=== PATIENT | male | born 1960 | race Caucasian/White ===

== ENCOUNTER 2023-07-20 14:18 | Outpatient (REF) | payer OTHER, SELFPAY ==
[2023-07-20 15:04] LABS: SARS-CoV-2 Ag NEGATIVE (NEGATIVE)
[2023-07-21 14:54] LABS: SARS-CoV-2 NAA NOT DETECTED (NOT DETECTE)
== END 2023-07-20 14:19 | disposition home or self-care (01) ==
LOC: LAB 14:18
PROVIDERS: PCP Family Medicine; Visit Provider Family Medicine
DX: R05.1 Acute cough (principal)
CPT/HCPCS: 87635; 87811

== ENCOUNTER 2023-09-21 11:59 | Outpatient (OUT) | payer BC, SELFPAY ==
--- NOTE | 2023-09-21 | XR_ITS ---
The [address] [address] Patient Name: DANAY HAN MRN: [id number] date: 1960 Sex: M Assigned Patient Location: [facility] Current Patient Location: [facility] Accession/Order Number: [id number] Exam Date: 09/21/2023 20:24 Report Date: 09/21/2023 22:14 At the request of: ARUN GARCIA Procedure: XR abdomen 1V EXAM: XR abdomen 1V CLINICAL INDICATION: history of kidney stones COMPARISON: CT abdomen/pelvis 04/05/2022 TECHNIQUE: 2 supine view(s) of the abdomen FINDINGS: Bowel: There is a nonobstructive bowel gas pattern. Peritoneum: No evidence of pneumoperitoneum noting limited evaluation on supine view. Osseous/calcific structures: Stable 1.8 cm probable right renal calculus. Probable tiny left renal calculi. XR/XR abdomen 1V IMPRESSION: Stable 1.8 cm probable right renal calculus. Probable tiny left renal calculi. Electronically authenticated by: CARLOTA LAYNE Date: 09/21/2023 22:14
--- OUTSIDE RECORDS SUMMARY | 2023-09-22 12:03 | XMS_ITS | CCD ---
Author Name Unknown Address [address] [place] [address] Organization [facility] Care Team Providers Care Com Writer Name Role Phone Radha Callaway Unavailable Gilda Cummins Primary Care Physician MARQUISE [facility]EN[facility] Amber Kay Attending Provider NO FAMILY, PHYSICIAN Primary Care Provider Unava ilable MARC, DR VO Referring Unavailable MARC, DR VO Primary Care Unavailable JOSE, DR DIAS Attending Unavailable JOSE, DR DIAS Admitting Unavailable MARC, DR VO Primary Care Unavailable SRINIVAS, DR PÉREZ Lott Consulting Unavailable NADEREKaylie, DR LUKE Sarabia Attending Unavailable NADEREKaylie, DR LUKE Sarabia Admitting Unavailable JOSE, DR DIAS Consulting Unavailable NADEREKaylie, DR LUKE Sarabia Consulting Unavailable GILBERTO, CRISTIAN Consulting Unavailable MARIIA, HUGH Consulting Unavailable MARC, DR VO Primary Care Unavailable JOSE, DR DIAS Consulting Unavailable JOSE, DR DIAS Attending Unavailable JOSE, DR DIAS Admitting Unavailable MARC, DR VO Attending Unavailable MARC, DR VO Admitting Unavailable MARC, DR VO Primary Care Unavailable MARC, DR VO Consulting Unavailable ZIEBBRIDGER, DR HUGH Lott Consulting Unavailable MARC, DR VO Primary Care Unavailable JOSE, DR DIAS Consulting Unavailable JOSE, DR DIAS Attending Unavailable JOSE, DR DIAS Admitting Unavailable ZIBEL, DR HUGH Lott Consulting Unavailable MARC, DR VO Admitting Unavailable MARC, DR VO Primary Care Unavailable CHEPEY, DR VO Consulting Unavailable MARC, DR VO Attending Unavailable ZIEBER, DR HUGH Lott Consulting Unavailable MARC, DR VO Admitting Unavailable MARC, DR VO Primary Care Unavailable MARC, DR VO Consulting Unavailable MARC, DR VO Attending Unavailable ZIEBBRIDGER, DR HUGH Lott Consulting Unavailable MARC, DR VO Primary Care Unavailable JOSE, DR DIAS Attending Unavailable MARC, DR VO Consulting Unavailable JOSE, DR DIAS Admitting Unavailable JOSE, DR DIAS Consulting Unavailable ROSALBA, DR HUGH Lott Consulting Unavailable MARC, DR VO Admitting Unavailable MARC, DR VO Consulting Unavailable MARC, DR VO Primary Care Unavailable MARC, DR VO Attending Unavailable EDWIN, DR LIYAH Walsh Consulting Unavailable MARC, DR VO Primary Care Unavailable JOSE, DR DIAS Attending Unavailable JOSE, DR DIAS Admitting Unavailable JOSE, DR DIAS Consulting Unavailable HERACLIO OLIVARES Consulting Unavailable WILMA, GILBERTO DEL ROSARIO Consulting Unavaila ble MARC, DR VO Primary Care Unavailable JOSE, DR DIAS Consulting Unavailable JOSE, DR DIAS Attending Unavailable JOSE, DR DIAS Admitting Unavailable Saravanan Torres Unavailable MD Saravanan Torres Attending Provider MD Gilda Cummins Primary Care Provider [phone] Gilda Cummins Primary Care Unavailable Brian, Saravanan S Admitting Unavailable Saravanan Torres S Attending Unavailable Gilda Cummins Primary Care Unavailable Brian, Saravanan S Admitting Unavailable Mejia Torresif S Attending Unavailable NO FAMILY, PHYSICIAN Primary Care Unavailable Amber Lentz Admitting Unavailable Amber Lentz Attending Unavailable Brian, Saravanan S Admitting Unavailable Brian, Saravanan S Attending Unavailable Gilda Cummins Primary Care Unavailable TRACEY CAM Attending Unavailable TRACEY CAM Referring Unavailable Luis Manuel LENZ Attending Unavailable Luis Manuel LENZ Attending Unavailable Allergies Allergy Classification Reported Allergen(s) Allergy Type Date of Onset Reaction(s) Facility (1 source) No Known Medication Allergies; Translations: [No Known Medication Allergies] Propensity to adverse reactions (disorder) [facility] Repository Medications Current Medications Medication Drug Class(es) Dates Sig (Normalized) Sig (Original) acyclovir 200 mg oral tablet (4 sources) Herpesvirus Nucleoside Analog DNA Polymerase Inhibitor, Herpes Simplex Virus Nucleoside Analog DNA Polymerase Inhibitor, Herpes Zoster Virus Nucleoside Analog DNA Polymerase Inhibitor Start: 03-06-2019 take 200 mg by mouth twice daily acyclovir 200 mg, Oral, BID, Refills(s) 0 Start Date: 03/06/19 Status: Ordered [id number] 200 actuat albuterol 0.09 mg/actuat metered dose inhaler (1 source) beta2-Adrenergic Agonist Start: 07-01-2021 take 2 puff(s) by inhalation four times daily as needed Albuterol Sulfate HFA 108 (90 Base) MCG/ACT 2 puffs Inhalation qid prn Jun, Active Ashwagandha 500 MG (9 sources) Ashwagandha 500 MG as directed Orally Active Ashwagandha Root Extract (2 sources) Start: 12-01-2022 take 2000 mg by mouth once daily Ashwagandha Root Extract Active 2000 MG PO Daily December 01, 2022 12:00am aspirin 81 mg oral tablet (16 sources) Platelet Aggregation Inhibitor, Nonsteroidal Anti-inflammatory Drug Start: 12-01-2022 take 81 mg by mouth once daily Aspirin Active 81 MG PO Daily December 01, 2022 12:00am Start: 05-01-2019 take 81 mg by mouth once daily aspirin 81 mg, Oral, Daily, Refills(s) 0 Start Date: 05/01/19 Status: Ordered Baby Aspirin Act cali atomoxetine (1 source) Norepinephrine Reuptake Inhibitor Strattera Active azithromycin 250 mg oral tablet (1 source) Macrolide Antimicrobial Start: 021 Zithromax 250 MG 2 tablet on the first day, then 1 tablet daily for 4 days Orally Once a day for 5 day(s) Jun, Active Baclofen (1 source) gamma-Aminobutyric Acid-ergic Agonist Baclofen Active cholecalciferol 0.125 mg oral capsule (2 sources) Vitamin D Start: take 5000 [IU] by mouth once daily Cholecalciferol (Vitamin D3) Active 5000 UNIT PO Daily December 01, 2022 12:00am DHEA 50 (1 source) DHEA 50 Active docusate sodium 50 mg oral capsule (3 sources) Start: 023 take 1 capsule by mouth once daily Docusate Sodium (Colace) 50 mg Capsule Active 50 MG PO Daily January 12, 2023 12:00am Start: 12-01-2022 End: 01-12-2023 take 1 capsule by mouth every other day Docusate Sodium (Colace) 100 mg Capsule Discontinued 100 MG PO As Directed December 01, 2022 12:00am January 12, 2023 9:27am every other day guanFACINE 2 mg oral tablet (1 source) Central alpha-2 Adrenergic Agonist Start: 01-12-2023 take 2 mg by mouth once daily Guanfacine Active 2 MG PO Daily January 12, 2023 12:00am levothyroxine sodium 0.1 mg oral tablet (4 sources) l-Thyroxine Start: 01-12-2023 take 100 ug by mouth once daily Levothyroxine Active 100 MCG PO Daily January 12, 2023 12:00am Start: 04-19-2022 levothyroxine Daily, Refills(s) 0 Start Date: 04/19/22 Status: Ordered Lisinopril (1 source) Angiotensin Converting Enzyme Inhibitor Lisinopril Active losartan potassium 50 mg oral tablet (14 sources) Angiotensin 2 Receptor Renate Start: 04-19-20 take 50 mg by mouth once daily Losartan Active 50 MG PO Daily December 01, 2022 12:00am methylphenidate hydrochloride 10 mg oral tablet (14 sources) Central Nervous System Stimulant Start: 12-02-19 Methylphenidate Hcl Active 20 MG PO As Directed December 01, 2022 12:00am Start: 12-01-2022 Methylphenidat e Hcl Active 10 MG PO As Directed December 01, 2022 12:00am Start: 04-19-2022 methylphenidat e Refills(s) 0 Start Date: 04/19/22 Status: Ordered take 2 tablets by mo [facility] once daily Methylphenidate HCl 10 MG TAKE 2 TABLETS BY MOUTH EVERY DAY Oral for 30 Days Active Multivitamin preparation (15 sources) Start: 12-01-2022 take 1 tablet by mouth once daily Multivitamin Active 1 TAB PO Daily December 01, 2022 12:00am Start: 04-19-2022 multivitamin D aily, Refill(s) 0 Start Date: 04/19/22 Status: Ordered Multivitamin Not -Taking Multivitamin Act cali oxaprozin 600 mg oral tablet (15 sources) Nonsteroidal Anti-inflammatory Drug Start: 01-12-2023 take 1200 mg by mouth once daily Oxaprozin Active 1200 MG PO Daily January 12, 2023 12:00am Start: 04-19-2022 End: 12-22-2022 Oxaprozin Discontinued 600 M G PO As Directed December 01, 2022 12:00am December 22, 2022 9:38am predniSONE 20 mg oral tablet (1 source) Start: 07-01-2021 take 1 tablet by mouth every twelve hours predniSONE 20 MG 1 tablet Orally bid for 5 day(s) Jun, Active tamsulosin hydrochloride 0.4 mg oral capsule (2 sources) alpha-Adrenergic Renate Start: 03-06-2019 take 0.4 mg by mouth once daily Flomax 0.4 mg, Oral, Daily, Refills(s) 0 Start Date: 03/06/19 Status: Ordered tiZANidine 4 mg oral tablet (1 source) Central alpha-2 Adrenergic Agonist Start: 01-12-2023 take 8 mg by mouth once daily at bedtime Tizanidine Active 8 MG PO Daily at bedtime January 12, 2023 12:00am traZODone hydrochloride 50 mg oral tablet (5 sources) Serotonin Reuptake Inhibitor Start: 01-12-2023 take 100 mg by mouth once daily at bedtime Trazodone Active 100 MG PO Daily at bedtime January 12, 2023 12:00am Start: 04-19-2022 traZODONE 100 mg Tab mg tab(s), Oral, Refills(s) 0 Start Date: 04/19/22 Status: Ordered traZODone HCl Ac tive Vitamin D3 (13 sources) Start: 04-19-2022 Vitamin D3 Ref ills(s) 0 Start Date: 04/19/22 Status: Ordered Vitamin D3 Activ e Completed/Discontinued Medications Medication Drug Class(es) Dates Sig (Normalized) Sig (Original) Augmentin Tablets 875 MG (9 sources) Augmentin Tablet s 875 MG Take as directed Not-Taking Augmentin Tablet s 875 MG Take as directed Active triamcinolone acetonide 40 mg/ml injectable suspension (9 sources) Corticosteroid Start: 10-18-2022 Kenalog-40 Oct, 40 mg Problems Active Problems Problem Classification Problem Date Documented Date Episodic/Chronic Calculus of urinary tract (11 sources) Kidney stone; Translations: [Calculus of kidney] Onset: 04-19-2022 03-06-2019 Episodic Chronic obstructive pulmonary disease and bronchiectasis (1 source) Chronic obstructive pulmonary disease, unspecified; Translations: [COPD UNSPECIFIED] Onset: 03-24-2022 Chronic Diseases of white blood cells (1 source) Elevated white blood cell count, unspecified; Translations: [ELEVATED WHITE BLOOD CELL COUNT UNS] Onset: 03-24-2022 Chronic Essential hypertension (1 source) Essential (primary) hypertension; Translations: [ESSENTIAL PRIMARY HYPERTENSION] Onset: 03-24-2022 Chronic Genitourinary symptoms and ill-defined conditions (4 sources) Presence of urogenital implants; Translations: [PRESENCE OF UROGENITAL IMPLANTS] Onset: 03-29-2022 Chronic Genitourinary symptoms and ill-defined conditions (9 sources) Microscopic hematuria; Translations: [Asymptomatic microscopic hematuria] Onset: 04-05-2022 Episodic Headache; including migraine (4 sources) Migraine 03-06-2019 Chronic Hyperplasia of prostate (11 sources) Benign prostatic hypertrophy with outflow obstruction; Translations: [Benign prostatic hyperplasia with lower urinary tract symptoms] Onset: 03-30-2022 Chronic Inflammatory conditions of male genital organs (1 source) Chronic prostatitis; Translations: [CHRONIC PROSTATITIS] Onset: 05-13-2022 Chronic Osteoarthritis (5 sources) Arthritis; Translations: [Unspecified osteoarthritis, unspecified site] Onset: 05-13-2022 03-06-2019 Chronic Other diseases of bladder and urethra (1 source) Bladder disorder, unspecified; Translations: [BLADDER DISORDER UNSPECIFIED] Onset: 05-13-2022 Chronic Other diseases of bladder and urethra (1 source) Other specified disorders of bladder; Translations: [OTHER SPECIFIED DISORDERS BLADDER] Onset: 03-30-2022 Chronic Other diseases of bladder and urethra (3 sources) Male urethral stricture; Translations: [Unspecified urethral stricture, male, unspecified site] Onset: 04-19-2022 Episodic Other diseases of bladder and urethra (3 sources) Urethral stricture 04-19-2022 Episodic Other diseases of bladder and urethra (1 source) Unspecified urethral stricture, male, unspecified site; Translations: [UNSP URETHRAL STRCT MALE UNSP SITE] Onset: 09-30-2022 Episodic Other diseases of kidney and ureters (1 source) Urinary tract obstruction; Translations: [Other obstructive and reflux uropathy] Onset: 09-13-2022 Episodic Other nervous system disorders (9 sources) Chronic pain; Translations: [Other chronic pain] Chronic Other nervous system disorders (5 sources) Other chronic pain Chronic Other nervous system disorders (1 source) Other chronic pain; Translations: [Other chronic pain] Onset: 12-01-2022 Chronic Other nutritional; endocrine; and metabolic disorders (1 source) Obesity, unspecified; Translations: [OBESITY UNSPECIFIED] Onset: 03-24-2022 Chronic Other nutritional; endocrine; and metabolic disorders (1 source) Body mass index (BMI) 37.0-37.9, adult; Translations: [BODY MASS INDEX BMI 37.0-37.9 ADULT] Onset: 03-24-2022 Chronic Residual codes; unclassified (4 sources) Sleep apnea 03-06-2019 Chronic Residual codes; unclassified (1 source) Sleep apnea, unspecified; Translations: [SLEEP APNEA UNSPECIFIED] Onset: 05-13-2022 Chronic Spondylosis; intervertebral disc disorders; other back problems (20 sources) Spondylosis without myelopathy or radiculopathy, cervical region; Translations: [Other intervertebral disc degeneration, lumbar region] Onset: 11-16-2021 Chronic Spondylosis; intervertebral disc disorders; other back problems (20 sources) Radiculopathy, cervical region; Translations: [Dorsalgia, unspecified] Onset: 11-18-2021 Episodic Unclassified (3 sources) Asymptomatic microscopic hematuria 04-19-2022 Unclassified (1 source) PERSONAL HISTORY OF COVID-19; Translations: [PERSONAL HISTORY OF COVID-19] Onset: 05-13-2022 Unclassified (1 source) CONTACT W/AND (SUSP) EXPOS COVID-19; Translations: [CONTACT W/AND (SUSP) EXPOS COVID-19] Onset: 05-03-2022 Unclassified (1 source) Pain in left shoulder; Translations: [Pain in left shoulder] Onset: 04-14-2022 Past or Other Problems Problem Classification Problem Date Documented Date Episodic/Chronic Abdominal pain (3 sources) Unspecified abdominal pain; Translations: [UNSPECIFIED ABDOMINAL PAIN] Onset: 03-21-2022 Episodic Acute and unspecified renal failure (1 source) Acute kidney failure, unspecified; Translations: [ACUTE KIDNEY FAILURE UNSPECIFIED] Onset: 03-24-2022 Episodic Chronic obstructive pulmonary disease and bronchiectasis (1 source) Bronchitis, not specified as acute or chronic; Translations: [Bronchitis J40] Onset: 07-01-2021 Resolved: 07-01-2021 Episodic Immunizations and screening for infectious disease (1 source) Contact with and (suspected) exposure to other viral communicable diseases; Translations: [Contact with and (suspected) exposure to other viral communicable diseases Z20.828] Onset: 07-01-2021 Resolved: 07-01-2021 Episodic Other aftercare (1 source) 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; Translations: [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 CURRENT USE OF ASPIRIN] Onset: 05-13-2022 Episodic Other aftercare (1 source) Other snf (current) drug therapy; Translations: [OTH 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 CURRENT DRUG THERAPY] Onset: 05-13-2022 Episodic Other aftercare (1 source) manager long term care (current) use of anticoagulants; Translations: [ALF CURRNT USE ANTICOAGULANTS] Onset: 05-03-2022 Episodic Other diseases of kidney and ureters (1 source) Hydronephrosis with renal and ureteral calculous obstruction; Translations: [HYDRONPHROS RENL AND URETRL CALCUL OBST] Onset: 03-24-2022 Episodic Other upper respiratory infections (1 source) Acute upper respiratory infection, unspecified; Translations: [Viral upper respiratory illness J06.9] Onset: 07-01-2021 Resolved: 07-01-2021 Episodic Screening and history of mental health and substance abuse codes (1 source) Personal history of nicotine dependence; Translations: [PERSONAL HISTORY OF NICOTINE DEPEND] Onset: 03-24-2022 Episodic Results Test Name Value Interpretation Reference Range Facility Provider Letteron 09-09-2023 Provider Letter (Inserted Image. Priscilla ble to display) September 09, 2023 PAUL VALENTINO [address] [place] [id number] : 1960 Dear Paul , We have been trying to reach you with no success. You have an appointment with Dr. Luis Manuel Lenz on 09/16/23 which will need to be rescheduled since he will be out of the office that day. Please contact the office at the number listed below to get this appointment rescheduled at your earliest convenience. Thank you for your prompt attention to this matter. Sincerely, [facility] [address], [place] [address] [facility] Pre-Certification Formon Pre-Certification Form [id number] :127 Normal [facility] RAD - MISCon 10-04-2022 RAD - MIS [id number]: 127 Normal [facility] XR KUB 1 VIEWon 09-29-2022 XR KUB 1 VIEW EXAMINATION: XR KUB 1 VIEW HISTORY: Lower urinary tract symptoms due to benign prostatic hypertrophy ; microscopic hematuria, history of kidney stones COMPARISON: CT abdomen and pelvis 04/05/2022 FINDINGS: KIDNEY/URETER - RIGHT: Collection of numerous small calcification within a cyst within superior pole of right kidney. Small adjacent calcification. KIDNEY/URETER - LEFT: Small calcification within lower pole of left kidney. PELVIS: No visible ureteral stones. BOWEL: No abnormal dilation or deviation. BONES: No acute abnormality. OTHER: Negative. No abnormal gaseous collections. IMPRESSION: 1. Bilateral nephrolithiasis; grossly stable compared to prior CT study. Electronically authenticated by: HUGH NAVARRETE Date: 2022-09-29 08:41 Normal [facility] Screenson 09-14-2022 Screens [id number]: 127 Normal [facility] Ambulatory Visit Summaryon 0 09-13-2022 Ambulatory Visit Summary PAUL VALENTINO :1960 Visit Date:09/13/2022 Ambulatory Visit Instructions Your Diagnosis BPH with obstruction/lower urinary tract symptoms Asymptomatic microscopic hematuria History of kidney stones Urethral stricture Other obstructive and reflux uropathy Tests Performed Urnls Dip Stick Auto w/o Microscopy POC [id number] XR Abdomen 1 View -- Results Pending -- Please visit your patient portal for your results or contact your primary care physician. Your Care Team Attending Physician - Luis Manuel LENZ MD Primary Care Physician - Gilda Cummins MD This Is Your Medications List Contact prescribing physician if questions or concerns acyclovir aspirin cholecalciferol (Vitamin D3) levothyroxine losartan (losartan 50 mg Tab) methylphenidate multivitamin oxaprozin (oxaprozin 600 mg Tab) trazodone (traZODONE 100 mg Tab) Procedures Performed Transurethral resection of prostate (05/06/2022), Arthroplasty of knee (2022), Clavicle, Lithotripsy. Discharge Vitals Heart Rate (Peripheral) 78 Respiratory Rate 16 Blood Pressure 137/89 Height 178 cm Height 70 in Weight 115.3 kg Weight 253.66 lb BMI 36.39 What to do next Scheduled Follow-Up Appointments Tuesday 9:45 AM EST With: Luis Manuel LENZ MD Where: [facility] Normal [facility] Patient Educationon 09-13-19 23 Patient Education Urology Benign Prostatic Hyperplasia Benign prostatic hyperplasia (BPH) is an enlarged prostate gland that is caused by the normal aging process and not by cancer. The prostate is a walnut-sized gland that is involved in the production of semen. It is located in front of the rectum and below the bladder. The bladder stores urine and the urethra is the tube that carries the urine out of the body. The prostate may get bigger as a man gets older. An enlarged prostate can press on the urethra. This can make it harder to pass urine. The build-up of urine in the bladder can cause infection. Back pressure and infection may progress to bladder damage and kidney (renal) failure. What are the causes? This condition is part of a normal aging process. However, not all men develop problems from this condition. If the prostate enlarges away from the urethra, urine flow will not be blocked. If it enlarges toward the urethra and compresses it, there will be problems passing urine. What increases the risk? This condition is more likely to develop in men over the age of 50 years. What are the signs or symptoms? Symptoms of this condition include: ? Getting up often during the night to urinate. ? Needing to urinate frequently during the day. ? Difficulty starting urine flow. ? Decrease in size and strength of your urine stream. ? Leaking (dribbling) after urinating. ? Inability to pass urine. This needs immediate treatment. ? Inability to completely empty your bladder. ? Pain when you pass urine. This is more common if there is also an infection. ? Urinary tract infection (UTI). How is this diagnosed? This condition is diagnosed based on your medical history, a physical exam, and your symptoms. Tests will also be done, such as: ? A post-void bladder scan. This measures any amount of urine that may remain in your bladder after you finish urinating. ? A digital rectal exam. In a rectal exam, your health care provider checks your prostate by putting a lubricated, gloved finger into your rectum to feel the back of your prostate gland. This exam detects the size of your gland and any abnormal lumps or growths. ? An exam of your urine (urinalysis). ? A prostate specific antigen (PSA) screening. This is a blood test used to screen for prostate cancer. ? An ultrasound. This test uses sound waves to electronically produce a picture of your prostate gland. Your health care provider may refer you to a specialist in kidney and prostate diseases (urologist). How is this treated? Once symptoms begin, your health care provider will monitor your condition (active surveillance or watchful waiting). Treatment for this condition will depend on the severity of your condition. Treatment may include: ? Observation and yearly exams. This may be the only treatment needed if your condition and symptoms are mild. ? Medicines to relieve your symptoms, including: ? Medicines to shrink the prostate. ? Medicines to relax the muscle of the prostate. ? Surgery in severe cases. Surgery may include: ? Prostatectomy. In this procedure, the prostate tissue is removed completely through an open incision or with a laparoscope or robotics. ? Transurethral resection of the prostate (TURP). In this procedure, a tool is inserted through the opening at the tip of the penis (urethra). It is used to cut away tissue of the inner core of the prostate. The pieces are removed through the same opening of the penis. This removes the blockage. ? Transurethral incision (TUIP). In this procedure, small cuts are made in the prostate. This lessens the prostate's pressure on the urethra. ? Transurethral microwave thermotherapy (TUMT). This procedure uses microwaves to create heat. The heat destroys and removes a small amount of prostate tissue. ? Transurethral needle ablation (TUNA). This procedure uses radio frequencies to destroy and remove a small amount of prostate tissue. ? Interstitial laser coagulation (ILC). This procedure uses a laser to destroy and remove a small amount of prostate tissue. ? Transurethral electrovaporization (TUVP). This procedure uses electrodes to destroy and remove a small amount of prostate tissue. ? Prostatic urethral lift. This procedure inserts an implant to push the lobes of the prostate away from the urethra. Follow these instructions at home: ? Take [id number] and prescription medicines only as told by your health care provider. ? Monitor your symptoms for any changes. Contact your health care provider with any changes. ? Avoid drinking large amounts of liquid before going to bed or out in public. ? Avoid or reduce how much caffeine or alcohol you drink. ? Give yourself time when you urinate. ? Keep all follow-up visits as told by your health care provider. This is important. Contact a health care provider if: ? You have unexplained back pain. ? Your symptoms do not get better with treatment. ? You d (more content not included)... Normal [facility] Urology Office/Clinic Noteon 09-13-2022 Urology Office/Clinic Note Chief Complaint 3 month f/u HPI Staff Pt is here for 3 month f/u. Previous dx of BPH with urinary obstruction (TURP 05/06/22), asymptomatic microhematuria, kidney stone and urethral stricture. IPSS score is 3. Dysuria: no Incomplete bladder emptying: not at all per IPSS Hematuria: pt states that he was seeing a small clot after intercourse but has not seen anything for about 3 weeks now Frequency: less than 1 in 5x Urgency: no Nocturia: 1x Stream: good stream no straining Leaking: no Post void dripping: no Wearing pads/ Depends: no Urge incontinence: no Stress incontinence: no Incontinence without Sensory Awareness: no Abdominal pain: no Flank pain: no Sexual complaints: no History of Present Illness Tests reviewed: reviewed UA I have reviewed the previous health record information and history for this patient from Dr. Lenz. I have reviewed and verified the staff HPI to be accurate for this encounter. There have been no associated fever, chills, flank pain, or blood in the urine. Denies any urinary infections since last encounter. Review of Systems PHQ Score Initial Depression Screen Score: 0 ROS - Provider Constitutional: denies weight loss, denies hot flashes. Eyes: denies eye problems. Gastrointestinal: denies nausea, denies vomiting. Cardiovascular: denies chest pain or angina. Integumentary: no dryness Musculoskeletal: denies musculoskeletal symptoms. ENMT: denies otolaryngeal symptoms. Respiratory: no shortness of breath. Heme/Lymph: denies easy bleeding tendency, denies easy bruising tendency. Psychiatric: no confusion, no anxiety. Genitourinary: denies dysuria, denies hematuria, denies discharge, denies urinary frequency, denies urinary hesitancy, denies nocturia, denies incontinence, denies genital sores, denies decreased libido, and denies erectile dysfunction. Physical Exam Vitals & Measurements HR: 78(Peripheral) RR: 16 BP: 137/89 HT: 70 in HT: 178 cm WT: 115.3 kg WT: 253.66 lb BMI: 36.39 General Appearance: alert, no distress, well nourished, well developed male. Genitourinary: normal scrotum, normal testes, normal urethra, normal epididymis, normal vas deferens/spermatic cord. Flank Pain: none. Bladder: nonpalpable. Assessment/Plan 1. BPH with obstruction/lower urinary tract symptoms (N40.1: Benign prostatic hyperplasia with lower urinary tract symptoms) S/p Cysto 03/21/22 Urodynamics 03/30/22 showed pt was obstructed S/p TURP 05/06/22. Pt doing very well with urination, stream has improved drastically. Pt feels empty after he voids. Pt states he gets up once a night, if at all. Pt not currently taking a BPH medications at this time. Dr. Cummins checks PSA, most recent 0.63 done 06/07/21, previous 0.56 done 08/21/19. 2. Asymptomatic microscopic hematuria (R31.21: Asymptomatic microscopic hematuria) Chronic. UA today shows moderate. Pt states he has seen a small amount of blood after intercourse. Not of concern due to TURP being only 4 months ago. 3. History of kidney stones (Z87.442: Personal history of urinary calculi) Will schedule a KUB for now and will follow up in 1 year with a kub. 4. Urethral stricture (N35.919: Unspecified urethral stricture, male, unspecified site) UD done 03/21/22. No issues at this time. Other obstructive and reflux uropathy (N13.8: Other obstructive and reflux uropathy) Follow-up With When Contact Information JOSE WONG, FÉLIX Allen In 1 year [facility] [address] , [place] [address]- [phone] Additional Instructions: w/ KUB Patient Education Benign Prostatic Hyperplasia I, Mandy Pandey, personally scribed for Dr. Lenz on 09/13/2022 11:57:47. . Documentation recorded by the scribe, Mandy Pandey, accurately reflects the services(s) I performed and decisions made by me. Authenticated by Dr. Lenz on 09/13/2022 11:59:17. Problem List/Past Medical History Ongoing Apnea, sleep Arthritis Asymptomatic microscopic hematuria BPH with obstruction/lower urinary tract symptoms Headache, migraine History of kidney stones Kidney stone Urethral stricture Historical No qualifying data Procedure/Surgical History Transurethral resection of prostate (05/06/2022), Arthroplasty of knee (2021), Clavicle, Lithotripsy. Medications acyclovir, 200 mg, Oral, BID aspirin, 81 mg, Oral, Daily levothyroxine, Daily losartan 50 mg Tab, Oral, Daily methylphenidate multivitamin, Daily oxaprozin 600 mg Tab, Oral, Daily traZODONE 100 mg Tab, Oral Vitamin D3 Allergies No Known Medication Allergies Social History Tobacco - No Risk, 05/01/2019 Former smoker, quit more than 30 days ago Tobacco Use:., 09/13/2022 Lab Results Ambulatory Point of Care Results Bilirubin Urine Dipstick: Negative (09/13/22 10:59:00) Blood Urine Dipstick: 2+ Moderate (09/13/22 10:59:00) Glucose Urine Dipstick: Negative (09/13/22 10:59:00) Ketones Urine D (more content not included)... Normal [facility] Comment on above: Result Comment: Elec tronically Signed By: Luis Manuel LENZ MD\.br\Date and Time Signed: 09/13/22 11:59 EST\.br\Electronically Co-Signed By: Mandy Pandey\.br\Date and Time Co-Signed: 09/13/22 11:57 EST US Venous, Unilat, Lower Ext Righton 08-31-2022 US Venous, Unilat, Lower Ext Right FINDINGS: The deep venous system of the right lower extremity exhibits full compressibility and normal flow augmentation. These specifically include the common femoral, superficial femoral, popliteal, and visualized anterior tibialis, posterior tibialis, and peroneal veins. No evidence of deep venous thrombosis is present. Greater saphenous vein is patent. 1.5 x 2.0 cm popliteal cyst. IMPRESSION: 1. No deep venous thrombosis 2. Popliteal cyst Report reported and signed by Cali Oh on 08/31/2022 1107 Normal [facility] CREATININEon 06-29-2022 Creatinine [Mass/Vol] 1.11 mg/dL Normal 0.70-1.30 [facility] Comment on above: Performed By: #### C BC #### [facility] [address] [address] [address] Sim Bryan EGFR-AF BELIZEAN >60 Normal >=60 [facility] Comment on above: Performed By: #### C BC #### [facility] [address] [address] [address] Sim Bryan EGFR-NON AF BELIZEAN >60 Normal >=60 [facility] Comment on above: Performed By: #### C BC #### [facility] [address] [address] [address] Sim Bryan MRI BRAIN WO W CONon 022 MRI BRAIN WO W CON EXAMINATION: MRI BRA IN WO W CON HISTORY: Cervical radiculopathy ; recurrent headaches COMPARISON: No relevant comparison available. TECHNIQUE: A variety of imaging planes and parameters were utilized for visualization of suspected pathology. Images were performed without and with ml Dotarem contrast. FINDINGS: CEREBRUM: No edema, hemorrhage, mass, acute infarction, or inappropriate atrophy. CEREBELLUM: No edema, hemorrhage, mass, acute infarction, or inappropriate atrophy. BRAINSTEM: No edema, hemorrhage, mass, acute infarction, or inappropriate atrophy. CSF SPACES: Ventricles, cisterns, and sulci are appropriate for age. No hydrocephalus, subarachnoid hemorrhage, or mass. SKULL: No mass or other significant visible lesion. SINUSES: Limited views demonstrate no significant mucosal thickening or fluid. ORBITS: Limited views are unremarkable. OTHER: No abnormal meningeal or parenchymal enhancement. IMPRESSION: Normal examination. Electronically authenticated by: HUGH NAVARRETE Date: 2022-06-29 21:03 Normal [facility] MRI CSPINE WO CONon 06-29-20 22 MRI CSPINE WO CON EXAMINATION: MRI CSP INE WO CON HISTORY: Cervical radiculopathy COMPARISON: MRI C-spine 03/29/2019 TECHNIQUE: A variety of imaging planes and parameters were utilized for visualization of suspected pathology. FINDINGS: CRANIOCERVICAL AREA: Normal foramen magnum with no Chiari malformation. PARASPINAL AREA: Normal with no visible mass. BONES: No fracture, pars defect, or osseous lesion. CORD: Normal caliber, contour, and signal intensity. CERVICAL DISC LEVELS: C2-C3: Left paracentral mild-moderate disc protrusion causing mild left foramen narrowing. C3-C4: Moderate-marked right foramen and moderate left foramen narrowing secondary to uncovertebral joint spurring and degenerative facet arthropathy, right greater than left. No significant central canal narrowing or disc bulging. C4-C5: Moderate left foramen narrowing secondary to uncovertebral joint spurring and degenerative facet arthropathy. No significant central canal or right foramen narrowing. No significant disc bulging. C5-C6: Moderate-marked foramen narrowing bilaterally secondary to uncovertebral joint spurring and degenerative facet arthropathy. Mild diffuse disc bulging without central canal narrowing. C6-C7: Mild left foramen narrowing secondary to uncovertebral joint spurring and mild degenerative facet arthropathy. C7-T1:. No significant disc/facet abnormality, spinal stenosis, or foraminal stenosis. IMPRESSION: 1. Multilevel foraminal stenosis secondary to uncovertebral joint spurring and degenerative facet arthropathy. No significant central canal narrowing. 2. C2-C3 left paracentral moderate disc protrusion causing mild left foramen narrowing. Electronically authenticated by: HUGH NAVARRETE Date: 2022-06-29 21:11 Normal [facility] XR FOREIGN BODY EYEon 2021 XR FOREIGN BODY EYE EXAMINATION: XR FORE IGN BODY EYE HISTORY: Foreign body in eye COMPARISON: No relevant comparison available. FINDINGS: ORBITS: Negative for a metallic foreign body. OTHER: Negative. IMPRESSION: 1. No metallic foreign body within the orbits. Electronically authenticated by: HUGH NAVARRETE Date: 2022-06-29 09:55 Normal [facility] XR CSPINE MIN 4 VIEWSon 06-05 XR CSPINE MIN 4 VIEWS EXAMINATION: XR CSPINE MIN 4 VIEWS HISTORY: Cervical radiculopathy ; chronic COMPARISON: XR C-spine 08/11/2018 FINDINGS: BONES: Multilevel mild-moderate degenerative facet arthropathy. No fracture, spondylolisthesis, bone lesion. DISC SPACES: Small posterior projecting degenerative endplate osteophytes without significant joint space narrowing. Mild bone encroachment on the neural foramen and C5-C6 and C6-C7. PARASPINOUS: Negative. No paraspinous abnormality is seen. OTHER: Negative. IMPRESSION: 1. Multilevel mild-moderate degenerative changes; stable to slightly progressed. Electronically authenticated by: HUGH NAVARRETE Date: 2022-06-23 07:11 Normal [facility] CBC AUTO DIFFon 04-29-2022 BASO # 0.0 103/ul Normal 0.0-0.1 [facility] Comment on above: Performed By: #### C BC #### [facility] [address] [address] [address] Sim Bryan Basophils/100 WBC (Bld) 0.4 % Normal 0.2-2.0 [facility] Comment on above: Performed By: #### C BC #### [facility] [address] [place] [address] Dr. Sim Bryan EO # 0.1 103/ul Normal 0.0-0.7 [facility] Comment on above: Performed By: #### C BC #### [facility] [address] [place] [address] Dr. Sim Bryan Eosinophils/100 WBC (Bld) 1.4 % Normal 0.9-7.0 [facility] Comment on above: Performed By: #### C BC #### [facility] [address] [place] [address] Dr. Sim Bryan Erythrocyte distribution width (RBC) [Ratio] 12.3 % Normal 11.0-15.0 [facility] Comment on above: Performed By: #### C BC #### [facility] [address] [place] [address] Dr. Sim Bryan Hematocrit (Bld) [Volume fraction] 45.8 % Normal 42.0-54.0 [facility] Comment on above: Performed By: #### C BC #### [facility] [address] [place] [address] Dr. Sim Bryan Hemoglobin (Bld) [Mass/Vol] 15.6 g/dL Normal 14.0-18.0 [facility] Comment on above: Performed By: #### C BC #### [facility] [address] [address] [address] Sim Bryan IG # 0.10 10e3/ul Critically high 0.00-0.03 [facility] Comment on above: Performed By: #### C BC #### [facility] [address] [address] [address] iSm Bryan IG % 1.2 % Critically high 0.0-0.5 [facility] Comment on above: Performed By: #### C BC #### [facility] [address] [address] [address] Sim Bryan LYMPH # 2.0 103/ul Normal 1.2-3.8 [facility] Comment on above: Performed By: #### C BC #### [facility] [address] [place] [address] Dr. Sim Bryan Lymphocytes/100 WBC (Bld) 23.7 % Normal 20.5-60.0 [facility] Comment on above: Performed By: #### C BC #### [facility] [address] [place] [address] Dr. Sim Bryan MANUAL DIFF REQ NO Normal [facility] Comment on above: Performed By: #### C BC #### [facility] [address] [place] [address] Dr. Sim Bryan MCH (RBC) [Entitic mass] 31.1 pg Normal 25.9-34.0 [facility] Comment on above: Performed By: #### C BC #### [facility] [address] [place] [address] Dr. Sim Bryan MCHC (RBC) [Mass/Vol] 34.1 g/dL Normal 29.9-35.2 [facility] Comment on above: Performed By: #### C BC #### [facility] [address] [place] [address] Dr. Sim Bryan MCV (RBC) [Entitic vol] 91.2 fL Normal 80.0-94.0 [facility] Comment on above: Performed By: #### C BC #### [facility] [address] [place] [address] Dr. Sim Bryan MONO # 0.8 103/ul Normal 0.3-0.8 [facility] Comment on above: Performed By: #### C BC #### [facility] [address] [place] [address] Dr. Sim Bryan Monocytes/100 WBC (Bld) 9.7 % Normal 1.7-12.0 [facility] Comment on above: Performed By: #### C BC #### [facility] [address] [place] [address] Dr. Sim Bryan NEUT # 5.4 103/ul Normal 1.4-6.5 [facility] Comment on above: Performed By: #### C BC #### [facility] [address] [place] [address] Dr. Sim Bryan Neutrophils/100 WBC (Bld) 63.6 % Normal 43.0-75.0 [facility] Comment on above: Performed By: #### C BC #### [facility] [address] [place] [address] Dr. iSm Bryan Platelet mean volume (Bld) [Entitic vol] 9.0 fL Critically low 9.5-13.5 [facility] Comment on above: Performed By: #### C BC #### [facility] [address] [place] [address] Dr. Sim Bryan PLT 215 103/ul Normal 150-450 [facility] Comment on above: Performed By: #### C BC #### [facility] [address] [place] [address] Dr. Sim Bryan RBC 5.02 106/ul Normal 4.70-6.10 [facility] Comment on above: Performed By: #### C BC #### [facility] [address] [place] [address] Dr. Sim Bryan WBC 8.6 103/ul Normal 4.0-11.0 [facility] Comment on above: Performed By: #### C BC #### [facility] [address] [place] [address] Dr. Sim Bryan Covid-19 PCR (CVDTBH)on 04-06 SARS-CoV-2 (COVID-19) RNA ANNA+probe Ql (Unsp spec) Not detected Normal NOT DETECTED [facility] Comment on above: Result Comment: This test is not yet approved or cleared by the [place] FDA. When there are no FDA-approved or cleared tests available, and other criteria are met, FDA can make tests available under an emergency access mechanism called an Emergency Use Authorization (EUA). The EUA for this test is supported by the [employer] of Health and Human Service's (HHS's) declaration that circumstances exist to justify the emergency use of in vitro diagnostics for the detection and/or diagnosis of the virus that causes COVID-19. This EUA will remain in effect (meaning this test can be used) for the duration of the COVID-19 declaration justifying emergency of IVDs, unless it is terminated or revoked by FDA (after which the test may no longer be used). When diagnostic testing is negative, the possibility of a false negative should be considered in the context of a patient's recent exposures and the presence of clinical signs and symptoms consistent with SARS-CoV-2. Performed By: #### C VDTBH #### [facility] [address] [place] [address] Dr. Sim Bryan PROF CHEM 8 (BAS METB)on Anion gap [Moles/Vol] 13.1 mmol/L Normal [facility] Comment on above: Performed By: #### GERA CRAWFORD #### [facility] [address] [place] [address] Dr. Sim Bryan Calcium [Mass/Vol] 8.8 mg/dL Normal 8.5-10.1 [facility] Comment on above: Performed By: #### GERA CRAWFORD #### [facility] [address] [place] [address] Dr. Sim Bryan Chloride [Moles/Vol] 103 mmol/L Normal 98-107 [facility] Comment on above: Performed By: #### GERA CRAWFORD #### [facility] [address] [place] [address] Dr. Sim Bryan CO2 [Moles/Vol] 26.7 mmol/L Normal 21.0-32.0 [facility] Comment on above: Performed By: #### GERA CRAWFORD #### [facility] [address] [address] [address] Sim Bryan Creatinine [Mass/Vol] 1.08 mg/dL Normal 0.70-1.30 [facility] Comment on above: Performed By: #### GERA CRAWFORD #### [facility] [address] [address] [address] Sim Bryan EGFR-AF BELIZEAN >60 Normal >=60 [facility] Comment on above: Performed By: #### GERA CRAWFORD #### [facility] [address] [place] [address] Dr. Sim Bryan EGFR-NON AF BELIZEAN >60 Normal >=60 [facility] Comment on above: Performed By: #### GERA CRAWFORD #### [facility] [address] [address] [address] Sim Bryan Glucose [Mass/Vol] 94 mg/dL Normal 74-106 [facility] Comment on above: Performed By: #### GERA CRAWFORD #### [facility] [address] [place] [address] Dr. Sim Bryan Potassium [Moles/Vol] 3.8 mmol/L Normal 3.5-5.1 [facility] Comment on above: Performed By: #### GERA CRAWFORD #### [facility] [address] [place] [address] Dr. Sim Bryan Sodium [Moles/Vol] 139 mmol/L Normal 136-145 [facility] Comment on above: Performed By: #### GERA CRAWFORD #### [facility] [address] [address] [address] Sim Bryan Urea nitrogen [Mass/Vol] 14.0 mg/dL Normal 7.0-18.0 [facility] Comment on above: Performed By: #### GERA CRAWFORD #### [facility] [address] [place] [address] Dr. Sim Bryan Urea nitrogen/Creatinine [Mass ratio] 13.0 mg/mg Normal [facility] Comment on above: Performed By: #### GERA CRAWFORD #### [facility] [address] [place] [address] Dr. Sim Bryan PROTIMEon 04-29-2022 INR Coag (PPP) [Relative time] 0.94 {INR} Normal [facility] Comment on above: Performed By: #### RADHA CRAWFORDRO #### [facility] [address] [place] [address] Dr. Sim Bryan INR GUIDELINES SEE BELOW Normal [facility] Comment on above: Result Comment: QUINTON RED INR: 2.0 - 3.0 CONDITIONS NOT LISTED BELOW 2.5 - 3.5 FOR PROSTHETIC HEART VALVE REPLACEMENT 2.5 - 3.5 RECURRENT THROMBOSIS Performed By: #### GERA CRAWFORD #### [facility] [address] [place] [address] Dr. Sim Bryan PT Coag (PPP) [Time] 10.2 s Normal 9.0-11.6 [facility] Comment on above: Performed By: #### GERA CRAWFORD #### [facility] [address] [place] [address] Dr. Sim Bryan PTTon 04-29-2022 aPTT Coag (Bld) [Time] 27.2 s Normal 22.3-36.2 [facility] Comment on above: Performed By: #### GERA CRAWFORD #### [facility] [address] [place] [address] Dr. Sim Bryan XR shoulder LT min 2V*on XR shoulder LT min 2V* [place] [address] XRay Report Signed Patient: Alexandro Valentino MR#: [id number] 5 : 1960 Acct:[id number] Age/Sex: 61 / M ADM Date: 04/14/22 Loc: XDCLY Room: Type: REG REF Attending Dr: Amber OLIVARES Copies to: MARSHALL Hanley Ordering Provider: JOSIE Hanley Date of Service: 04/14/22 XR/XR shoulder LT min 2V*: LEFT SHOULDER PAIN LEFT SHOULDER - 3 views CLINICAL HISTORY: Patient was using machinery at work today and felt a painful pop at the left shoulder. Pain has persisted. Previous shoulder surgery. COMPARISON: None AP, Y and Grashey views were obtained. An anchor pin is seen at the humeral head. There is no acute fracture or dislocation. There is mild degenerative change at the acromioclavicular joint and greater tuberosity. There are no significant soft tissue abnormalities. XR/XR shoulder LT min 2V* IMPRESSION: NO ACUTE BONY INJURY. Impression dictated by: Bhavya Eli M.D.04/14/2022 1:11 PM Dictation Location: [place] [address] Transcribed By: [facility] 04/14/22 1311 Dictated By: Bhavya Eli MD 04/14/22 1309 Signed By: 04/14/22 1311 [facility] CREATININEon 04-05-2022 Creatinine [Mass/Vol] 1.16 mg/dL Normal 0.70-1.30 [facility] Comment on above: Performed By: #### C MANUEL #### [facility] [address] [place] [address] Dr. Sim Bryan EGFR-AF BELIZEAN >60 Normal >=60 [facility] Comment on above: Performed By: #### C MANUEL #### [facility] [address] [place] [address] Dr. Sim Bryan EGFR-NON AF BELIZEAN >60 Normal >=60 [facility] Comment on above: Performed By: #### C MANUEL #### [facility] [address] [place] [address] ABD/PELV W CONon 04-05-20 CT ABD/PELV W CON EXAMINATION: CT ABD/ PELV W CON HISTORY: Demian hematuria , kidney stones COMPARISON: CT abdomen pelvis 03/20/2022 TECHNIQUE: Axial, Coronal, and Sagittal images were created with IV contrast. Dose reduction techniques were achieved by using automated exposure control and/or adjustment of mA and/or kV according to patient size and/or use of iterative reconstruction technique. FINDINGS: LUNG BASES: No visible pulmonary or pleural disease. LIVER: No enlargement, atrophy, suspicious density, or significant focal lesion. BILIARY: No dilatation or calcification. PANCREAS: No lesion, fluid collection, or abnormal duct dilatation. SPLEEN: No enlargement or focal lesion. ADRENALS: No mass or enlargement. KIDNEYS: Within the right kidney is a 2.7 cm fluid density, nonenhancing dilated calyx containing numerous small calcifications layering against the dependent wall. Delayed images show contrast excreted into the dilated calyx (not a cyst). Additional tiny nonobstructing stone within inferior pole of kidney. Previously seen small distal ureteral stone is now at the ureterovesical junction protruding into the bladder; nonobstructing. A few small nonobstructing stones within left kidney. BOWEL/MESENTERY: No visible mass, obstruction, or bowel wall thickening. AORTA/VASCULAR: No aneurysm or dissection. RETROPERITONEUM: No mass or adenopathy. LYMPH NODES: No adenopathy. URINARY BLADDER: No focal wall thickening or lesion. PELVIC ORGANS: No visible mass. Pelvic organs appropriate for patient age. ABDOMINAL WALL: No mass or hernia. BONES: L3-L4 marked disc space narrowing. No bony lesion or fracture. OTHER: Negative. IMPRESSION: 1. Previously seen small stone within distal right ureter has progressed distally, now at the ureterovesical junction, and is nonobstructing. 2. Right kidney contains a dilated 2.7 cm calyx containing numerous small calcifications which would be prone to passing into the urinary tract with change in patient position. 3. Bilateral nonobstructing nephrolithiasis. Electronically authenticated by: HUGH NAVARRETE Date: 2022-04-05 18:05 Normal [facility] CALCULI, URINARYon 2 2,8 Dihydroxyadenine Normal [facility] Comment on above: Performed By: #### C ALCULI #### [facility] [address] [place] [address] [id number] [address] Sim Bryan Ammonium Acid Urate Normal [facility] Comment on above: Performed By: #### C ALCULI #### [facility] [address] [address] [address] Sim Bryan Bilirubin Ql (U) Normal The [facility] Comment on above: Performed By: #### C ALCULI #### [facility] [address] [address] [address] Sim Bryan Ca Oxalate Dihydrate Normal [facility] Comment on above: Performed By: #### C ALCULI #### [facility] [address] [address] [address] Sim Bryan CaHPO4 (Brushite) Celoron The [facility] Comment on above: Performed By: #### C ALCULI #### [facility] [address] [address] [address] Sim Bryan Calcium Bilirubinate Normal [facility] Comment on above: Performed By: #### C ALCULI #### [facility] [address] [address] [address] Sim Bryan Calcium Carbonate Normal The [facility] Comment on above: Performed By: #### C ALCULI #### [facility] [address] [address] [address] Sim Bryan Calcium Oxalate Monohydrate 100 % [facility] Comment on above: Performed By: #### C ALCULI #### [facility] [address] [address] [address] Sim Bryan Calcium Palmitate Normal [facility] Comment on above: Performed By: #### C ALCULI #### [facility] [address] [address] [address] Sim Bryan Calcium Phosphate Normal [facility] Comment on above: Performed By: #### C ALCULI #### [facility] [address] [address] [address] Sim Bryan Calcium Stearate Normal The [facility] Comment on above: Performed By: #### C ALCULI #### [facility] [address] [address] [address] Sim Bryan Carbonate Apatite Normal [facility] Comment on above: Performed By: #### C ALCULI #### [facility] [address] [address] [address] Sim Bryan Cellular Material Normal [facility] Comment on above: Performed By: #### C ALCULI #### [facility] [address] [address] [address] Sim Bryan Cholesterol [facility] Comment on above: Performed By: #### C ALCULI #### [facility] [address] [address] [address] Sim Bryan Color (U) Brown Normal [facility] Comment on above: Performed By: #### C ALCULI #### [facility] [address] [address] [address] Sim Bryan Comment [facility] Comment on above: Performed By: #### C ALCULI #### [facility] [address] [address] [address] Sim Bryan Comment Comment [facility] Comment on above: Result Comment: Calc ulus received in liquid. Wet calculi must be dried before analysis, which delays reporting of results. Leaving calculi in liquid (such as water, saline, blood, urine) may lead to changes in composition. Performed By: #### C ALCULI #### [facility] [address] [place] [address] Dr. Sim Bryan Comment: Comment Normal [facility] Comment on above: Result Comment: Mathieu martínez questions regarding Calculi Analysis contact [facility] at: [phone]. Performed By: #### C ALCULI #### [facility] [address] [place] [address] Dr. Sim Bryan Composition Comment [facility] Comment on above: Result Comment: Perc entage (Represents the % composition) Performed By: #### C ALCULI #### [facility] [address] [address] [address] Sim Bryan Cystine [facility] Comment on above: Performed By: #### C ALCULI #### [facility] [address] [place] [address] Dr. Sim Bryan Disclaimer: Comment [facility] Comment on above: Result Comment: This test was developed and its performance characteristics determined by [facility]. It has not been cleared or approved by the Food and Drug Administration. Performed By: #### C ALCULI #### [facility] [address] [address] [address] Sim Bryan Dried Blood [facility] Comment on above: Performed By: #### C ALCULI #### [facility] [address] [place] [address] Dr. Sim Bryan Drug or Metabolite Normal [facility] Comment on above: Performed By: #### C ALCULI #### [facility] [address] [address] [address] Sim Bryan Hydroxyapatite [facility] Comment on above: Performed By: #### C ALCULI #### [facility] [address] [place] [address] Dr. Sim Bryan Mg NH4 PO4 (Struvite) [facility] Comment on above: Performed By: #### C ALCULI #### [facility] [address] [place] [address] Dr. Sim Bryan MgHPO4 (Newberyite) Normal [facility] Comment on above: Performed By: #### C ALCULI #### [facility] [address] [place] [address] Dr. Sim Bryan Other component(s) Normal [facility] Comment on above: Performed By: #### C ALCULI #### [facility] [address] [place] [address] Dr. Sim Bryan PDF . [facility] Comment on above: Performed By: #### C ALCULI #### [facility] [address] [place] [address] Dr. Sim Bryan Photo Comment [facility] Comment on above: Result Comment: Phot ograph will follow under a separate cover Performed By: #### C ALCULI #### [facility] [address] [place] [address] Dr. Sim Bryan Please note: Comment [facility] Comment on above: Result Comment: Calc chava report will follow via computer, mail or collection systems worker delivery. Performed By: #### C ALCULI #### [facility] [address] [address] [address] Sim Bryan Size 4x4 Normal [facility] Comment on above: Result Comment: Mult iple pieces received. Dimensions of the largest piece reported. Performed By: #### C ALCULI #### [facility] [address] [address] [address] Sim Bryan Sodium Acid Urate Normal [facility] Comment on above: Performed By: #### C ALCULI #### [facility] [address] [address] [address] Sim Bryan Source Comment [facility] Comment on above: Result Comment: Righ t Ureter Performed By: #### C ALCULI #### [facility] [address] [place] [address] Dr. Sim Bryan Triamterene [facility] Comment on above: Performed By: #### C ALCULI #### [facility] [address] [place] [address] Dr. Sim Bryan Uric Acid [facility] Comment on above: Performed By: #### C ALCULI #### [facility] [address] [address] [address] Sim Bryan Uric Acid Dihydrate Normal [facility] Comment on above: Performed By: #### C ALCULI #### [facility] [address] [place] [address] Dr. Sim Bryan Weight 30.0 mg [facility] Comment on above: Performed By: #### C ALCULI #### [facility] [address] [address] [address] Sim Bryan Xanthine [facility] Comment on above: Performed By: #### C ALCULI #### [facility] [address] [address] [address] Sim Bryan CBC AUTO DIFFon 03-21-2022 BASO # 0.0 103/ul Normal 0.0-0.1 [facility] Comment on above: Performed By: #### C BC #### [facility] [address] [place] [address] Dr. Sim Bryan Basophils/100 WBC (Bld) 0.3 % Normal 0.2-2.0 [facility] Comment on above: Performed By: #### C BC #### [facility] [address] [place] [address] Dr. Sim Bryan EO # 0.1 103/ul Normal 0.0-0.7 [facility] Comment on above: Performed By: #### C BC #### [facility] [address] [place] [address] Dr. Sim Bryan Eosinophils/100 WBC (Bld) 1.4 % Normal 0.9-7.0 [facility] Comment on above: Performed By: #### C BC #### [facility] [address] [place] [address] Dr. Sim Bryan Erythrocyte distribution width (RBC) [Ratio] 12.5 % Normal 11.0-15.0 [facility] Comment on above: Performed By: #### C BC #### [facility] [address] [place] [address] Dr. Sim Bryan Hematocrit (Bld) [Volume fraction] 43.4 % Normal 42.0-54.0 [facility] Comment on above: Performed By: #### C BC #### [facility] [address] [place] [address] Dr. Sim Bryan Hemoglobin (Bld) [Mass/Vol] 14.5 g/dL Normal 14.0-18.0 [facility] Comment on above: Performed By: #### C BC #### [facility] [address] [place] [address] Dr. Sim Bryan IG # 0.10 10e3/ul Critically high 0.00-0.03 [facility] Comment on above: Performed By: #### C BC #### [facility] [address] [place] [address] Dr. Sim Bryan IG % 1.0 % Critically high 0.0-0.5 [facility] Comment on above: Performed By: #### C BC #### [facility] [address] [place] [address] Dr. Sim Bryan LYMPH # 1.9 103/ul Normal 1.2-3.8 [facility] Comment on above: Performed By: #### C BC #### [facility] [address] [place] [address] Dr. Sim Bryan Lymphocytes/100 WBC (Bld) 18.2 % Critically low 20.5-60.0 [facility] Comment on above: Performed By: #### C BC #### [facility] [address] [place] [address] Dr. Sim Bryan MANUAL DIFF REQ NO Normal [facility] Comment on above: Performed By: #### C BC #### [facility] [address] [place] [address] Dr. Sim Bryan MCH (RBC) [Entitic mass] 31.5 pg Normal 25.9-34.0 [facility] Comment on above: Performed By: #### C BC #### [facility] [address] [place] [address] Dr. Sim Bryan MCHC (RBC) [Mass/Vol] 33.4 g/dL Normal 29.9-35.2 [facility] Comment on above: Performed By: #### C BC #### [facility] [address] [place] [address] Dr. Sim Bryan MCV (RBC) [Entitic vol] 94.3 fL Critically high 80.0-94.0 [facility] Comment on above: Performed By: #### C BC #### [facility] [address] [place] [address] Dr. Sim Bryan MONO # 1.0 103/ul Critically high 0.3-0.8 [facility] Comment on above: Performed By: #### C BC #### [facility] [address] [place] [address] Dr. Sim Bryan Monocytes/100 WBC (Bld) 10.2 % Normal 1.7-12.0 [facility] Comment on above: Performed By: #### C BC #### [facility] [address] [place] [address] Dr. Sim Bryan NEUT # 7.1 103/ul Critically high 1.4-6.5 [facility] Comment on above: Performed By: #### C BC #### [facility] [address] [address] [address] Sim Bryan Neutrophils/100 WBC (Bld) 68.9 % Normal 43.0-75.0 [facility] Comment on above: Performed By: #### C BC #### [facility] [address] [address] [address] Sim Bryan Platelet mean volume (Bld) [Entitic vol] 9.3 fL Critically low 9.5-13.5 [facility] Comment on above: Performed By: #### C BC #### [facility] [address] [place] [address] Dr. Sim Bryan PLT 156 103/ul Normal 150-450 [facility] Comment on above: Performed By: #### C BC #### [facility] [address] [place] [address] Dr. Sim Bryan RBC 4.60 106/ul Critically low 4.70-6.10 [facility] Comment on above: Performed By: #### C BC #### [facility] [address] [address] [address] Sim Bryan WBC 10.2 103/ul Normal 4.0-11.0 [facility] Comment on above: Performed By: #### C BC #### [facility] [address] [place] [address] ABD/PELVIS WO CONon 03-21 CT ABD/PELVIS WO CON EXAM: CT abdomen and Pelvis without contrast dated 03/20/2022 9:32 PM EDT HISTORY: 61 years old Male with right flank pain. COMPARISON STUDY: None available at time of dictation. TECHNIQUE: Multidetector spiral CT of the abdomen and pelvis was performed from lung bases to pubic symphysis. Imaging was performed without IV contrast. Axial, coronal and sagittal multiplanar reformats were obtained from the axial data set by the technologist. Dose reduction techniques were achieved by using automated exposure control and/or adjustment of mA and/or kV according to patient size and/or use of iterative reconstruction technique. FINDINGS: Evaluation of solid organs is limited due to lack of intravenous contrast use. Lung Bases: No acute or significant lung base finding. Normal heart size. No pleural or pericardial effusion. Liver: The liver is normal in size. No focal lesions. Gallbladder and Biliary Tree: Unremarkable Spleen: Unremarkable Pancreas: The pancreas is grossly normal in appearance. Adrenal Glands: Slight nodular thickening of the left adrenal gland is appreciated. A small adenoma on image 28 series 3 is not excluded. No definite focal lesion identified on the right. Kidneys: Renal lesions cannot be entirely excluded bilaterally secondary to lack of contrast administration however there appears to be layering dense calcium noted on image 86 of series 5 dependently measuring up to 18 mm x 15 mm. There is a hypodensity suggesting a 3 cm cyst at this level however consider evaluation with MRI or ultrasound. Small exophytic hypodensity measuring less than 6 mm on the left may represent a cyst. Nonobstructing left nephrolithiasis measuring 2 mm superiorly and inferiorly without hydronephrosis identified. Moderate right hydroureteronephrosis with perinephric and periureteric fat stranding is identified. Nonobstructing stones in the superior aspect of the right kidney measuring 2 mm can be appreciated. There is an obstructing calculus noted at the distal third of the right ureter, measuring up to 4 mm. Moderate perinephric fat stranding and periureteric edema extends into the right pelvis. Bowel: The stomach is grossly normal in appearance. Small bowel and colon are normal in caliber and distribution. The appendix is normal without findings of acute appendicitis. Diverticulosis without diverticulitis. There is circumferential mural thickening along the duodenum, likely reactive with a small duodenal diverticulum on image 52 of series 5. Mild infectious or inflammatory duodenitis/enteritis is felt to be less likely. Vasculature: The visualized abdominal aorta is normal in size and caliber. Scattered atherosclerotic plaques are seen in the aorta. Evaluation of abdominal and pelvic vessels is limited due to lack of intravenous contrast. Pelvic Organs: Unremarkable within the limitation of noncontrast CT. Musculoskeletal: No aggressive focal bony lesions, acute fractures or dislocation. Mild edema is noted in the soft tissues on the left on images 94 through 101 in the gluteal region. Correlation for history of injection or mild cellulitis is recommended. IMPRESSION: Acute obstructive uropathy on the right secondary to a 4 mm stone at the distal third of the ureter. Bilateral nonobstructing stones. Layering calcification within a probable renal cyst on the right. Laboratory correlation for infection and urological consultation should be considered. Probable reactive mural thickening of the duodenum. Nonacute findings as above. Electronically authenticated by: CRISTIAN MACIAS Date: 2022-03-20 22:34 Normal [facility] CULTURE BLOODon 03-21-2022 Microscopic examination of blood, culture Culture Observations: NO GROWTH AT 5 DAYS. Normal [facility] Comment on above: Performed By: #### GERA CRAWFORD #### [facility] [address] [address] [address] Sim Bryan Microscopic examination of blood, culture Culture Observations: NO GROWTH AT 5 DAYS. Normal [facility] Comment on above: Performed By: #### GERA CRAWFORD #### [facility] [address] [address] [address] Sim Bryan Covid-19 PCR (CVDTB)on 03-05 SARS-CoV-2 (COVID-19) RNA ANNA+probe Ql (Unsp spec) Not detected Normal NOT DETECTED [facility] Comment on above: Result Comment: When diagnostic testing is negative, the possibility of a false negative should be considered in the context of a patient's recent exposures and the presence of clinical signs and symptoms consistent with SARS-CoV-2. This test is not yet approved or cleared by the [place] FDA. When there are no FDA-approved or cleared tests available, and other criteria are met, FDA can make tests available under an emergency access mechanism called an Emergency Use Authorization (EUA). The EUA for this test is supported by the [employer] of Health and Human Service's declaration that circumstances exist to justify the emergency use of in vitro diagnostics for the detection and/or diagnosis of the virus that causes COVID-19. This EUA will remain in effect for the duration of the COVID-19 declaration justifying emergency of IVDs, unless it is terminated or revoked by the FDA (after which the test may no longer be used). Performed By: #### C VDTBH #### [facility] [address] [address] [address] Sim Bryan ER URINE PROFILEon 2 Bilirubin Ql (U) Negative Normal NEGATIVE [facility] Comment on above: Performed By: #### Jennifer VERA UMICRO #### [facility] [address] [place] [address] Dr. Sim Bryan Clarity (U) CLEAR Normal CLEAR [facility] Comment on above: Performed By: #### E CHUY, UMICRO #### [facility] [address] [address] [address] Sim Bryan Color (U) LT. YELLOW Normal YELLOW [facility] Comment on above: Performed By: #### E CHUY UMICRO #### [facility] [address] [place] [address] Dr. Sim FLORES A micrscopic examina tion will be performed if indicated. Normal [facility] Comment on above: Performed By: #### Jennifer VERA UMICRO #### [facility] [address] [place] [address] Dr. Sim Bryan Glucose Ql (U) Negative Normal NEGATIVE [facility] Comment on above: Performed By: #### Jennifer VERA UMICRO #### [facility] [address] [place] [address] Dr. Sim Bryan Hemoglobin Ql (U) SMALL Abnormal NEGATIVE [facility] Comment on above: Performed By: #### Jennifer VERA UMICRO #### [facility] [address] [place] [address] Dr. Sim Bryan Ketones Ql (U) Negative Normal NEGATIVE [facility] Comment on above: Performed By: #### Jennifer VERA UMICRO #### [facility] [address] [place] [address] Dr. Sim Bryan LEUKOCYTES Negative Normal NEGATIVE [facility] Comment on above: Performed By: #### Jennifer VERA UMICRO #### [facility] [address] [place] [address] Dr. Sim Bryan Nitrite Ql (U) Negative Normal NEGATIVE [facility] Comment on above: Performed By: #### Jennifer VERA UMICRO #### [facility] [address] [place] [address] Dr. Sim Bryan pH (U) 6.0 [pH] Normal 5-9 [facility] Comment on above: Performed By: #### GERA CRAWFORD #### [facility] [address] [place] [address] Dr. Sim Bryan SPEC GRAVITY 1.010 Normal 1.005-<=1.02 5 [facility] Comment on above: Performed By: #### GERA CRAWFORD #### [facility] [address] [place] [address] Dr. Sim Bryan UA PROTEIN Negative Normal NEGATIVE/ TRACE [facility] Comment on above: Performed By: #### GERA CRAWFORD #### [facility] [address] [place] [address] Dr. Sim Bryan UR MICRO IND INDICATED Normal [facility] Comment on above: Performed By: #### GERA CRAWFORD #### [facility] [address] [place] [address] Dr. Sim Bryan Urobilinogen Qn (U) 0.2 {Cornell'U}/dL Normal 0.2 - 1. 0 [facility] Comment on above: Performed By: #### GERA CRAWFORD #### [facility] [address] [place] [address] Dr. Sim Bryan LACTATE/LACTIC ACIDon 2021 Lactate [Moles/Vol] 0.5 mmol/L Normal 0.4-1.9 [facility] Comment on above: Performed By: #### L ACT #### [facility] [address] [place] [address] Dr. Sim Bryan PROF CHEM 8 (BAS METB)on Anion gap [Moles/Vol] 11.3 mmol/L Normal [facility] Comment on above: Performed By: #### B MP #### [facility] [address] [place] [address] Dr. Sim Bryan Calcium [Mass/Vol] 8.1 mg/dL Critically low 8.5-10.1 [facility] Comment on above: Performed By: #### B MP #### [facility] [address] [address] [address] Sim Bryan Chloride [Moles/Vol] 105 mmol/L Normal 98-107 [facility] Comment on above: Performed By: #### B MP #### [facility] [address] [address] [address] Sim Bryan CO2 [Moles/Vol] 26.8 mmol/L Normal 21.0-32.0 [facility] Comment on above: Performed By: #### B MP #### [facility] [address] [address] [address] Sim Bryan Creatinine [Mass/Vol] 1.57 mg/dL Critically high 0.70-1.30 [facility] Comment on above: Performed By: #### B MP #### [facility] [address] [address] [address] Sim Bryan EGFR-AF BELIZEAN 55 mL/min/1.73m2 Critically low >=60 [facility] Comment on above: Performed By: #### B MP #### [facility] [address] [address] [address] Sim Bryan EGFR-NON AF BELIZEAN 45 mL/min/1.73m2 Critically low >=60 [facility] Comment on above: Performed By: #### B MP #### [facility] [address] [address] [address] Sim Bryan Glucose [Mass/Vol] 101 mg/dL Normal 74-106 [facility] Comment on above: Performed By: #### B MP #### [facility] [address] [address] [address] Sim Bryan Potassium [Moles/Vol] 4.1 mmol/L Normal 3.5-5.1 [facility] Comment on above: Performed By: #### B MP #### [facility] [address] [address] [address] Sim Bryan Sodium [Moles/Vol] 139 mmol/L Normal 136-145 [facility] Comment on above: Performed By: #### B MP #### [facility] [address] [place] [address] Dr. Sim Bryan Urea nitrogen [Mass/Vol] 16.0 mg/dL Normal 7.0-18.0 [facility] Comment on above: Performed By: #### B MP #### [facility] [address] [place] [address] Dr. Sim Bryan Urea nitrogen/Creatinine [Mass ratio] 10.2 mg/mg Normal [facility] Comment on above: Performed By: #### B MP #### [facility] [address] [place] [address] Dr. Sim Bryan URINE MICROSCOPIC ONLYon BACTERIA NONE SEEN Normal NONE SEEN [facility] Comment on above: Performed By: #### Jennifer VERA UMICRO #### [facility] [address] [place] [address] Dr. Sim Bryan Bacteria identified Cx Nom (U) NOT INDICATED Normal [facility] Comment on above: Performed By: #### Jennifer VERA UMICRO #### [facility] [address] [place] [address] Dr. Sim Bryan CAST NONE SEEN Normal NONE SEEN [facility] Comment on above: Performed By: #### Jennifer VERA UMICRO #### [facility] [address] [place] [address] Dr. Sim Bryan Crystals LM Nom (Urine sed) NONE SEEN Normal NONE SEEN [facility] Comment on above: Performed By: #### Jennifer VERA UMICRO #### [facility] [address] [place] [address] Dr. Sim Bryan Epithelial cells LM Ql (Urine sed) RARE Normal NONE SEEN /RARE [facility] Comment on above: Performed By: #### Jennifer VERA UMICRO #### [facility] [address] [place] [address] Dr. Sim Bryan MUCOUS NONE SEEN Normal NONE SEEN [facility] Comment on above: Performed By: #### Jennifer VERA UMICRO #### [facility] [address] [place] [address] Dr. Sim Bryan RBC 5-10 Abnormal 0-2 [facility] Comment on above: Performed By: #### GERA CRAWFORD #### [facility] [address] [place] [address] Dr. Sim Bryan WBC NONE SEEN Normal NONE SEEN [facility] Comment on above: Performed By: #### E GERA VERA #### [facility] [address] [place] [address] Dr. Sim Bryan CBC AUTO DIFFon 03-20-2022 BASO # 0.1 103/ul Normal 0.0-0.1 [facility] Comment on above: Performed By: #### C BC #### [facility] [address] [place] [address] Dr. Sim Bryan Basophils/100 WBC (Bld) 0.4 % Normal 0.2-2.0 [facility] Comment on above: Performed By: #### C BC #### [facility] [address] [place] [address] Dr. Sim Bryan EO # 0.1 103/ul Normal 0.0-0.7 [facility] Comment on above: Performed By: #### C BC #### [facility] [address] [place] [address] Dr. Sim Bryan Eosinophils/100 WBC (Bld) 0.5 % Critically low 0.9-7.0 [facility] Comment on above: Performed By: #### C BC #### [facility] [address] [place] [address] Dr. Sim Bryan Erythrocyte distribution width (RBC) [Ratio] 12.3 % Normal 11.0-15.0 [facility] Comment on above: Performed By: #### C BC #### [facility] [address] [place] [address] Dr. Sim Bryan Hematocrit (Bld) [Volume fraction] 46.4 % Normal 42.0-54.0 [facility] Comment on above: Performed By: #### C BC #### [facility] [address] [place] [address] Dr. Sim Bryan Hemoglobin (Bld) [Mass/Vol] 15.8 g/dL Normal 14.0-18.0 [facility] Comment on above: Performed By: #### C BC #### [facility] [address] [place] [address] Dr. Sim Bryan IG # 0.11 10e3/ul Critically high 0.00-0.03 [facility] Comment on above: Performed By: #### C BC #### [facility] [address] [address] [address] Sim Bryan IG % 0.8 % Critically high 0.0-0.5 [facility] Comment on above: Performed By: #### C BC #### [facility] [address] [place] [address] Dr. Sim Bryan LYMPH # 1.4 103/ul Normal 1.2-3.8 [facility] Comment on above: Performed By: #### C BC #### [facility] [address] [place] [address] Dr. Sim Bryan Lymphocytes/100 WBC (Bld) 10.3 % Critically low 20.5-60.0 [facility] Comment on above: Performed By: #### C BC #### [facility] [address] [place] [address] Dr. Sim Bryan MANUAL DIFF REQ NO Normal [facility] Comment on above: Performed By: #### C BC #### [facility] [address] [place] [address] Dr. Sim Bryan MCH (RBC) [Entitic mass] 31.5 pg Normal 25.9-34.0 [facility] Comment on above: Performed By: #### C BC #### [facility] [address] [place] [address] Dr. Sim Bryan MCHC (RBC) [Mass/Vol] 34.1 g/dL Normal 29.9-35.2 [facility] Comment on above: Performed By: #### C BC #### [facility] [address] [place] [address] Dr. Sim Bryan MCV (RBC) [Entitic vol] 92.4 fL Normal 80.0-94.0 [facility] Comment on above: Performed By: #### C BC #### [facility] [address] [place] [address] Dr. Sim Bryan MONO # 1.2 103/ul Critically high 0.3-0.8 [facility] Comment on above: Performed By: #### C BC #### [facility] [address] [place] [address] Dr. Sim Bryan Monocytes/100 WBC (Bld) 8.8 % Normal 1.7-12.0 [facility] Comment on above: Performed By: #### C BC #### [facility] [address] [place] [address] Dr. Sim Bryan NEUT # 10.4 103/ul Critically high 1.4-6.5 [facility] Comment on above: Performed By: #### C BC #### [facility] [address] [place] [address] Dr. Sim Bryan Neutrophils/100 WBC (Bld) 79.2 % Critically high 43.0-75.0 [facility] Comment on above: Performed By: #### C BC #### [facility] [address] [place] [address] Dr. Sim Bryan Platelet mean volume (Bld) [Entitic vol] 9.4 fL Critically low 9.5-13.5 [facility] Comment on above: Performed By: #### C BC #### [facility] [address] [place] [address] Dr. Sim Bryan PLT 198 103/ul Normal 150-450 [facility] Comment on above: Performed By: #### C BC #### [facility] [address] [place], [place] [id number] Dr. Sim Bryan RBC 5.02 106/ul Normal 4.70-6.10 [facility] Comment on above: Performed By: #### C BC #### [facility] [address] [place] [address] Dr. Sim Bryan WBC 13.1 103/ul Critically high 4.0-11.0 [facility] Comment on above: Performed By: #### C BC #### [facility] [address] [address] [address] Sim Bryan LACTATE/LACTIC ACIDon 2021 Lactate [Moles/Vol] 0.7 mmol/L Normal 0.4-1.9 [facility] Comment on above: Performed By: #### C BC #### [facility] [address] [address] [address] Sim Bryan PROF CHEM 8 (BAS METB)on Anion gap [Moles/Vol] 12.2 mmol/L Normal [facility] Comment on above: Performed By: #### C BC #### [facility] [address] [place] [address] Dr. Sim Bryan Calcium [Mass/Vol] 8.8 mg/dL Normal 8.5-10.1 [facility] Comment on above: Performed By: #### C BC #### [facility] [address] [place] [address] Dr. Sim Bryan Chloride [Moles/Vol] 103 mmol/L Normal 98-107 [facility] Comment on above: Performed By: #### C BC #### [facility] [address] [place] [address] Dr. Sim Bryan CO2 [Moles/Vol] 25.7 mmol/L Normal 21.0-32.0 [facility] Comment on above: Performed By: #### C BC #### [facility] [address] [address] [address] Sim Bryan Creatinine [Mass/Vol] 1.58 mg/dL Critically high 0.70-1.30 [facility] Comment on above: Performed By: #### C BC #### [facility] [address] [place] [address] Dr. Sim Bryan EGFR-AF BELIZEAN 54 mL/min/1.73m2 Critically low >=60 [facility] Comment on above: Performed By: #### C BC #### [facility] [address] [place] [address] Dr. Sim Bryan EGFR-NON AF BELIZEAN 45 mL/min/1.73m2 Critically low >=60 [facility] Comment on above: Performed By: #### C BC #### [facility] [address] [address] [address] Sim Bryan Glucose [Mass/Vol] 110 mg/dL Critically high 74-106 [facility] Comment on above: Performed By: #### C BC #### [facility] [address] [address] [address] Sim Bryan Potassium [Moles/Vol] 3.9 mmol/L Normal 3.5-5.1 [facility] Comment on above: Performed By: #### C BC #### [facility] [address] [place] [address] Dr. Sim Bryan Sodium [Moles/Vol] 137 mmol/L Normal 136-145 [facility] Comment on above: Performed By: #### C BC #### [facility] [address] [address] [address] Sim Bryan Urea nitrogen [Mass/Vol] 15.0 mg/dL Normal 7.0-18.0 [facility] Comment on above: Performed By: #### C BC #### [facility] [address] [place] [address] Dr. Sim Bryan Urea nitrogen/Creatinine [Mass ratio] 9.5 mg/mg Normal [facility] Comment on above: Performed By: #### C BC #### [facility] [address] [place] [address] Dr. Sim Bryan MRI LSPINE WO CONon 11-17-19 22 MRI LSPINE WO CON EXAMINATION: MRI LSP INE WO CON HISTORY: Degeneration of lumbar intervertebral disc COMPARISON: 08/23/2018 TECHNIQUE: A variety of imaging planes and parameters were utilized for visualization of suspected pathology. FINDINGS: For the purposes of numbering, sagittal T2 image # 8 extends from the T10 vertebral body superiorly to the S3 level inferiorly. PARASPINAL AREA: Normal with no visible mass. BONES: Normal alignment of the lumbar vertebral bodies with no acute fracture or spondylolisthesis. No bone edema. Mildly heterogeneous marrow pattern likely age related degenerative changes. Mild anterior wedging T12 and L1 vertebral bodies, chronic or physiologic in nature. Moderate degenerative spondylosis most significant at L3-L4 CORD/CAUDA EQUINA: Normal caliber, contour, and signal intensity. DISC LEVELS: 12-L1: No significant disc/facet abnormality, spinal stenosis, or foraminal stenosis. L1-L2: Early degenerative disc disease is present without focal protrusion or neural impingement. L2-L3: Early degenerative disc disease is present without focal protrusion or neural impingement. L3-L4: Moderate disc space narrowing. Moderate diffuse posterior broad-based disc protrusion most significant along the right neural foramen. No central canal or foraminal stenosis. L4-L5: Early degenerative disc disease is present without focal protrusion or neural impingement. L5-S1: Early degenerative disc disease is present without focal protrusion or neural impingement. IMPRESSION: Degenerative changes, stable from the prior exam with interval improvement at the L3-L4 level. No central or foraminal stenosis Electronically authenticated by: LIYAH PINEDA Date: 2021-11-16 21:45 Normal [facility] XR LSPINE MIN 4 VIEWSon 11-03 XR LSPINE MIN 4 VIEWS EXAMINATION: XR LSPINE MIN 4 VIEWS HISTORY: Degeneration of lumbar intervertebral disc ; right lumbar pain radiating to right leg, numbness and tingling COMPARISON: XR lumbar spine 08/11/2018 FINDINGS: BONES: Slight left convex curvature of the lumbar spine. Stable mild anterior wedging of L1 vertebral body. Moderate degenerative facet arthropathy L4-L5, L5-S1. No acute fracture or spondylolisthesis. DISC SPACES: Moderate marked narrowing L3 on 4. Mild narrowing L5-S1. PARASPINOUS: Negative. No paraspinous abnormality is seen. OTHER: Negative. IMPRESSION: 1. No appreciable acute abnormality. 2. Stable L3-L4 moderate marked degenerative disc disease and mild L5-S1 degenerative disc disease. 3. Stable, remote mild compression fracture of L1. Electronically authenticated by: HUGH NAVARRETE Date: 2021-11-13 14:56 [facility] -------- PAUL VALENTINO ([id number]) 1960 M Date Time Provider Department 08/06/21 SHARI GALLAGHER OTOLMARIANO During your visit today, we recorded the following information about you: Paty Brito RN 08/06/2021 3:35 PM Signed Message left requesting call back, phone number provided. Please transfer back to nurse when pt returns my call. Thanks. Paty Brito RN 2021 3:05 PM Signed Spoke with paul's : Dr. Delaney Nieto's message relayed. Reviewed criteria for tinnitus management clinic: Need ENT medical clearance. They have an ENT outside of [facility]/[place]. They will make an appointment with their ENT and ask for referral to tinnitus clinic. has asked cancel appointment with Dr. Delaney Nieto. Done. I have placed a tinnitus management pamphlet in the mail bin. is aware that it may take ~10 days to receive. Allergies As of Date: 08/06/2021 (Not on File) Date Reviewed: Never Reviewed Reason for Visit: Future Appointment [256] Problem List As Of Date: 08/06/2021 (None) Encounter Status:Closed by PATY BRITO RN on 08/07/21 Normal [facility] COVID Quick Testingon 2020 Result Negative [facility] Other Vital Signs Date Time Vital Sign Value Performing Clinician Facility 01-12-2023 11:15-0400 Diastolic blood pressure 77 mm[Hg] MD Gilda Cummins Work Phone: [facility] 01-12-2023 11:15-0400 Heart rate 74 /min MD Gilda Cummins Work Phone: [facility] 01-12-2023 11:15-0400 Respiratory rate 16 /min MD Gilda Cummins Work Phone: [facility] 01-12-2023 11:15-0400 SaO2% (BldA) [Mass fraction] 96 % MD Gilda Topete Phone: [facility] 01-12-2023 11:15-0400 Systolic blood pressure 140 mm[Hg] MD Gilda Cummins Work Phone: [facility] 01-12-2023 10:04-0400 Inhaled oxygen flow rate 3 L/min MD Gilda Cummins Work Phone: [facility] 01-12-2023 09:31-0400 Body height 179.07 cm MD Gilda Cummins Work Phone: [facility] 01-12-2023 09:31-0400 Body weight 119.74 kg MD Gilda Cummins Work Phone: [facility] 12-29-2022 14:00-0400 Body height 180.34 cm Saravanan Torres Other [facility] Other 12-29-2022 14:00-0400 Diastolic blood pressure 78 mm[Hg] Saravanan Torres Other [facility] Other 12-29-2022 14:00-0400 Respiratory rate 18 /min Saravanan Torres Other [facility] Other 12-29-2022 14:00-0400 SaO2% (BldA) [Mass fraction] 95 % Saravanan Torres Other [facility] Other 12-29-2022 14:00-0400 Systolic blood pressure 136 mm[Hg] Saravanan Torres Other [facility] Other 12-22-2022 11:55-0400 Diastolic blood pressure 98 mm[Hg] MD Gilda Cummins Work Phone: [facility] 12-22-2022 11:55-0400 Heart rate 68 /min MD Gilda Cummins Work Phone: [facility] 12-22-2022 11:55-0400 Respiratory rate 18 /min MD Gilda Cummins Work Phone: [facility] 12-22-2022 11:55-0400 SaO2% (BldA) [Mass fraction] 97 % MD Gilda Cummins Work Phone: [facility] 12-22-2022 11:55-0400 Systolic blood pressure 145 mm[Hg] MD Gilda Cummins Work Phone: [facility] 12-22-2022 11:13-0400 Inhaled oxygen flow rate 3 L/min MD Gilda Cummins Work Phone: [facility] 12-22-2022 09:32-0400 Body height 180.34 cm MD Gilda Cummins Work Phone: [facility] 12-22-2022 09:32-0400 Body weight 117.93 kg MD Gilda Cummins Work Phone: [facility] 12-08-2022 14:45-0400 Body height 180.34 cm Saravanan Torres Other [facility] Other 12-08-2022 14:45-0400 Body mass index (BMI) [Ratio] 37.37 kg/m2 Saravanan Torres Other [facility] Other 12-08-2022 14:45-0400 Body weight 121.56 kg Saravanan Torres Other [facility] Other 12-08-2022 14:45-0400 Diastolic blood pressure 82 mm[Hg] Saravanan Torres Other [facility] Other 12-08-2022 14:45-0400 Respiratory rate 18 /min Saravanan Torres Other [facility] Other 12-08-2022 14:45-0400 Systolic blood pressure 144 mm[Hg] Saravanan Torres Other [facility] Other 12-01-2022 10:53-0400 Diastolic blood pressure 91 mm[Hg] MD Gilda Cummins Work Phone: [facility] 12-01-2022 10:53-0400 Heart rate 65 /min MD Gilda Cummins Work Phone: [facility] 12-01-2022 10:53-0400 Respiratory rate 16 /min MD Gilda Cummins Work Phone: [facility] 12-01-2022 10:53-0400 SaO2% (BldA) [Mass fraction] 96 % MD Gilda Cummins Work Phone: [facility] 12-01-2022 10:53-0400 Systolic blood pressure 145 mm[Hg] MD Gilda Cummins Work Phone: [facility] 12-01-2022 09:28-0400 Body height 180.34 cm MD Gilda Cummins Work Phone: [facility] 12-01-2022 09:28-0400 Body weight 121.92 kg MD Gilda Cummnis Work Phone: [facility] 11-15-2022 12:30-0400 Body height 180.34 cm Saravanan Torres Other [facility] Other 11-15-2022 12:30-0400 Body mass index (BMI) [Ratio] 37.49 kg/m2 Saravanan Torres Other [facility] Other 11-15-2022 12:30-0400 Body weight 121.93 kg Saravanan Torres Other [facility] Other 11-15-2022 12:30-0400 Diastolic blood pressure 88 mm[Hg] Saravanan Torres Other [facility] Other 11-15-2022 12:30-0400 SaO2% (BldA) [Mass fraction] 97 % Saravanan Torres Other [facility] Other 11-15-2022 12:30-0400 Systolic blood pressure 142 mm[Hg] Saravanan Torres Other [facility] Other 10-18-2022 12:45-0500 Body height 180.34 cm Saravanan Torres Other [facility] Other 10-18-2022 12:45-0500 Diastolic blood pressure 82 mm[Hg] Saravanan Torres Other [facility] Other 10-18-2022 12:45-0500 Respiratory rate 18 /min Saravanan Torres Other [facility] Other 10-18-2022 12:45-0500 SaO2% (BldA) [Mass fraction] 93 % Saravanan Torres Other [facility] Other 10-18-2022 12:45-0500 Systolic blood pressure 164 mm[Hg] Saravanan Fairbanksky Other [facility] Other 10-08-2022 12:00-0500 Body height 180.34 cm Saravanan Torres Other [facility] Other 10-08-2022 12:00-0500 Body mass index (BMI) [Ratio] 37.51 kg/m2 Saravanan Fairbanksky Other [facility] Other 10-08-2022 12:00-0500 Body weight 122.02 kg Saravanan oTrres Other [facility] Other 10-08-2022 12:00-0500 Diastolic blood pressure 88 mm[Hg] Saravanan Torres Other [facility] Other 10-08-2022 12:00-0500 SaO2% (BldA) [Mass fraction] 96 % Saravanan Torres Other [facility] Other 10-08-2022 12:00-0500 Systolic blood pressure 146 mm[Hg] Saravanan Torres Other [facility] Other 09-13-2022 10:47-0500 Blood Pressure Location Luis Manuelnate LENZ [facility] 09-13-2022 10:47-0500 Diastolic blood pressure 89 mm[Hg] Luis Manuel LENZ [facility] 09-13-2022 10:47-0500 Heart rate 78 /min Luis Manuel LENZ [facility] 09-13-2022 10:47-0500 Respiratory rate 16 /min Luis Manuel LENZ [facility] 09-13-2022 10:47-0500 Systolic blood pressure 137 mm[Hg] Luis Manuel LENZ [facility] 06-04-2022 08:50-0400 Blood Pressure Location Luis Manuel LENZ [facility] 06-04-2022 08:50-0400 Diastolic blood pressure 87 mm[Hg] Luis Manuel LENZ [facility] 06-04-2022 08:50-0400 Heart rate 69 /min Luis Manuel LENZ [facility] 06-04-2022 08:50-0400 Respiratory rate 16 /min Luis Manuel LENZ [facility] 06-04-2022 08:50-0400 Systolic blood pressure 137 mm[Hg] Luis Manuel LENZ [facility] 04-19-2022 09:38-0400 Blood Pressure Location Luis Manuel LENZ [facility] 04-19-2022 09:38-0400 Diastolic blood pressure 98 mm[Hg] Luis Manuel LENZ [facility] 04-19-2022 09:38-0400 Heart rate 87 /min Luis Manuel LENZ [facility] 04-19-2022 09:38-0400 Respiratory rate 16 /min Luis Manuel LENZ [facility] 04-19-2022 09:38-0400 Systolic blood pressure 169 mm[Hg] Luis Manuel LENZ [facility] 07-01-2021 18:15-0400 Body height 180.34 cm Radha Callaway Other [facility] Other 07-01-2021 18:15-0400 Body mass index (BMI) [Ratio] 34.86 kg/m2 Radha Callaway Other [facility] Other 07-01-2021 18:15-0400 Body temperature 97.8 [degF] Radha Callaway Other [facility] Other 07-01-2021 18:15-0400 Body weight 113.4 kg Radha Callaway Other [facility] Other 07-01-2021 18:15-0400 Respiratory rate 18 /min Radha Callaway Other [facility] Other 07-01-2021 18:15-0400 SaO2% (BldA) [Mass fraction] 98 % Rdaha Callaway Other [employer] Other Encounters Encounter Date Encounter Type Care Provider Facility Start: 09-16-2023 ambulatory Luis Manuel Barrera ty:[facility] Start: 08-11-2023 End: 08-12-2023 ambulatory TRACEY CAM Not Available Start: 01-12-2023 (PROC) PROCEDURE Saravanan Torres [facility] Start: 01-12-2023 End: 01-12-2023 ambulatory Saravanan Torres Facility:[facility] Start: 01-12-2023 End: 01-12-2023 Admission to same day surgery center MD Gilda Cummins Work Phone: [facility] Work Phone: Start: 01-12-2023 End: 01-12-2023 ambulatory MD Gilda Cummins Work Phone: [facility] Work Phone: Start: 12-29-2022 End: 12-29-2022 ambulatory Saravanan Torres Other [facility] Other Start: 12-29-2022 Office outpatient vi sit 25 minutes Saravanan Torres [facility] Start: 12-22-2022 (PROC) PROCEDURE Saravanan Torres [facility] Start: 12-22-2022 End: 12-22-2022 ambulatory Gilda Cummins [facility] Other Start: 12-22-2022 End: 12-22-2022 Admission to same day surgery center MD Gilda Cummins Work Phone: [facility] Work Phone: Start: 12-08-2022 End: 12-08-2022 ambulatory Saravanan Brian Other [employer] Other Start: 12-08-2022 Office outpatient vi sit 15 minutes Saravanan Brian [facility] Start: 12-01-2022 (PROC) PROCEDURE Saravanan Macdonald [facility]ss [facility] Start: 12-01-2022 End: 12-01-2022 Admission to same day surgery center MD Gilda Cummins Work Phone: [facility] Work Phone: Start: 12-01-2022 End: 12-01-2022 ambulatory MD Gilda Cummins Work Phone: [facility] Work Phone: Start: 11-15-2022 End: 11-15-2022 ambulatory Saravanan Brian Other [employer] Other Start: 11-15-2022 Office outpatient vi sit 25 minutes Saravanan Brian [facility] Start: 10-18-2022 End: 10-18-2022 ambulatory Saravanan Brian Other [facility] Other Start: 10-18-2022 Office outpatient vi sit 15 minutes Saravanan Brian [facility] Start: 10-11-2022 End: 10-11-2022 ambulatory Saravanan Brian Other [facility] Other Start: 10-11-2022 Telephone encounter Saravanan Torres [facility] Start: 10-08-2022 End: 10-08-2022 ambulatory Saravanan Torres Other [facility] Other Start: 10-08-2022 Office consultation new/estab patient 60 min Saravanan Torres [facility] Start: 09-28-2022 End: 09-29-[address] GILDA CUMMINS Facility:[facility] Start: 09-13-2022 End: 09-14-2022 ambulatory Luis Manuel LENZ Facility:[facility] Start: 09-13-2022 End: 09-13-2022 Patient encounter procedure Luis Manuel LENZ [facility] Start: 06-29-2022 End: 06-30-[address] GILDA CMUMINS Facility:[facility] Start: 06-22-2022 End: 06-23-[address] GILDA CUMMINS Facility:[facility] Start: 06-04-2022 End: 06-04-2022 Patient encounter procedure Luis Manuel LENZ [facility] Start: 05-06-2022 End: 05-07-[address] GILDA CUMMINS Facility:[facility] Start: 05-03-2022 Encounter for preprocedural laboratory examination DR LUIS MANUEL LENZ [facility] Start: 04-29-2022 End: 04-30-[address] GILDA CUMMINS Facility:[facility] Start: 04-29-2022 End: 04-30-2022 Encounter for preprocedural laboratory examination DR GILDA CUMMINS Facility:[facility] Start: 04-19-2022 End: 04-19-2022 Patient encounter procedure Luis Manuel LENZ [facility] Start: 04-14-2022 End: 04-14-2022 ambulatory PHYSICIAN NO FAMILY Facility:[facility] Start: 04-14-2022 End: 04-14-2022 Departed Referred AIR SAW OPERATOR-BC Amber Tor Work Phone: [facility] Start: 04-05-2022 End: 04-06-[address] GILDA CUMMINS Facility:[facility] Start: 03-30-2022 End: 03-30-2022 Patient encounter procedure Luis Manuel LENZ [facility] Start: 03-29-2022 End: 03-29-[address] GILDA CUMMINS Facility:[facility] Start: 03-21-2022 End: 03-21-[address] GILDA CUMMINS Facility:[facility] Start: 11-16-2021 End: 11-17-[address] GILDA CUMMINS Facility:[facility] Start: 11-13-2021 End: 11-14-[address] GILDA CUMMINS Facility:[facility] Start: 07-01-2021 Office outpatient vi sit 15 minutes Radha Callaway [facility] Procedures Date Procedure Procedure Detail Performing Clinician Start: 01-12-2023 Radiofrequency destr uction of peripheral nerve MD Gilda Cummins Work Phone: Start: 12-22-2022 Local anesthetic lum bar facet joint nerve block MD Gilda Cummins Work Phone: Start: 12-01-2022 Therapeutic cervical epidural injection MD Gilda Cummins Work Phone: Start: 05-06-2022 Transurethral prostatectomy Luis Manuel LENZ Start: 04-14-2022 Plain X-ray of left shoulder AIR SAW OPERATOR-BC Amber Lentz Work Phone: Start: 09-05-2021 Arthroplasty of knee Delta LENZ Bone structure of cl avicle (body structure) Luis Manuel LENZ Comment on above: 2018 SLAP repair and clavicle resection 2018 SLAP repair and clavicle resection Lithotripsy Luis Manuel LENZ Comment on above: Delfino Lenz 201 4 and 2016 Delfino Lenz 201 4 and 2016 Plan of Treatment Date Care Activity Detail Author Start: 01-12-2023 [facility] Start: 12-22-2022 [facility] Start: 12-01-2022 [facility] Patient Education [facility] Work Phone: Patient referral [facility] Work Phone: Payers Date Payer Category Payer Unknown [id number] 2022 Self-pay 2022 Worker's Compensation [id number] 1960 Unknown [id number] 2.16.84 0.1.372411.3.579.2.593 1961 Unknown [id number] 2.16.84 0.1.207885.3.579.2.593 1961 Unknown [id number] 2.16.84 0.1.895020.3.579.2.593 1961 Unknown [id number] 2.16.84 0.1.961486.3.579.2.593 1961 Unknown [id number] 2.16.84 0.1.510511.3.579.2.593 1961 Unknown [id number] 2.16.84 0.1.519154.3.579.2.593 1961 Unknown [id number] 2.16.84 0.1.450370.3.579.2.593 1961 Unknown [id number] 2.16.84 0.1.875067.3.579.2.593 1961 Unknown [id number] 2.16.84 0.1.781618.3.579.2.593 1961 Unknown [id number] 2.16.84 0.1.032408.3.579.2.593 1961 Unknown [id number] 2.16.84 0.1.041754.3.579.2.593 1961 Unknown [id number] 2.16.840 .1.833959.3.579.2.1259 1961 Unknown [id number] 2.16.840 .1.417502.3.579.2.1259 1961 Unknown [id number] 2.16.8 40.1.316426.3.579.2.727 1961 Unknown [id number] 2.16.8 40.1.874919.3.579.2.727 1959 Unknown [id number] 2.16. 840.1.430419.19 1959 Unknown [id number] Unknown [id number] 2.16.8 40.1.593452.3.579.2.531 Unknown [id number] 2.16.8 40.1.537225.3.579.2.531 Unknown [id number] 2.16.8 40.1.962885.3.579.2.531 Unknown [id number] 2.16.8 40.1.212208.3.579.2.531 Social History Date Type Detail Facility Unknown if ever smoked [facility] Other Sex Assigned At [employer] Other Tobacco smoking status No Smokin g Status Entered [facility] Start: 1960 Sex Assigned At Male F [facility] Start: 09-13-2022 End: 01-12-2023 Tobacco smoking status Ex-smoker (finding) [facility] Goals Date Patient Goal Desired Activity /State Functional Status Date Assessment Result Facility 09-13-2022 Functional Status N/A [facility] 06-04-2022 Functional Status N/A [facility] 04-19-2022 N/A [facility] Clinical Notes 07-01-2021 to 01-12-2023 Note Date & Type Note Facility 01-12-2023 Procedure [facility] 12-29-2022 Evaluation note Encounter Date Diagnosis Assessment Notes Dec, Cervical spondylosis (ICD-10 - M47.812) 62 year old male here for follow-up status post cervical facet medial branch block on the left at C2, C3 and C4 under fluoroscopic guidance. Patient reports 90-100% pain relief for 2-3 days following procedure. He voices continued complaints of neck pain today, as expected. I recommend proceeding with a left cervical facet medial branch RFA. Risks and benefits of procedure explained to patient; patient verbalizes understanding. Dec, Chronic pain (ICD-10 - G89.29) Stable, proceed with treatment plan. Dec, Degeneration of cervical intervertebral disc (ICD-10 - M50.30) Stable, follow up after procedure. [employer] Other 04-05-2023 Evaluation note* Encounter Date Diagnosis Assessment Notes Treatment Notes Treatment Clinical Notes Dec, Cervical spondylosis (ICD-10 - M47.812) 62 year old male here for follow up status post cervical facet medial branch block on the left at C2, C3 and C4 under fluoroscopic guidance. Patient reports 70-80% pain relief for 6 hours following the procedure. He continues to complain of neck pain today as expected. I recommend proceeding with a confirmatory cervical facet medial branch nerve block on the left. Risks and benefits of procedure explained to patient; patient verbalizes understanding. Dec, Chronic pain (ICD-10 - G89.29) Stable, proceed with treatment plan. Dec, Degeneration of cervical intervertebral disc (ICD-10 - M50.30) Stable, follow up after procedure. [employer] Other [facility] Encounter Date Diagnosis Assessment Notes Treatment Notes Treatment Clinical Notes Nov, Cervical spondylosis (ICD-10 - M47.812) 62 year old male here for follow up status post left greater and lesser occipital branch nerve block. Patient reports 70-80% pain relief for 3-4 days following the procedure. He continues to complain of pain in the left side of the back of the neck and skull today. Anatomy of spine as well as different treatment options were discussed in detail with patient in regards to patients condition. I recommend we proceed with a left cervical facet medial branch nerve block under fluoroscopic guidance. Risks and benefits of procedure explained to patient; patient verbalizes understanding. Nov, Occipital neuralgia (ICD-10 - M54.81) Patient reports 70-80% pain relief for 3-4 days following the procedure. If his pain persists or worsens, we can repeat a left greater and lesser occipital branch nerve block in the future, if applicable. Nov, Chronic pain (ICD-10 - G89.29) Follow up after procedure. Nov, Degeneration of cervical intervertebral disc (ICD-10 - M50.30) Continue with current treatment plan. [employer] Other 02-13-2023 Evaluation note* Encounter Date Diagnosis Assessment Notes Treatment Notes Treatment Clinical Notes Oct, Cervical spondylosis (ICD-10 - M47.812) Regarding his complaints of neck pain, we can consider proceeding with a bilateral cervical facet MBB under fluoroscopic guidance in the future, if applicable. Oct, Occipital neuralgia (ICD-10 - M54.81) 62 year old male here for follow up to discuss chronic pain. He continues to complain of pain to the back of the head on the left side. He also voices continued complaints of neck pain with intermittent tingling down the left arm to the fingertips. He feels pain can negatively impact his ADL's and sleep pattern. Different treatment options were discussed in detail with the patient. I recommend proceeding with a left greater and lesser occipital nerve block today in the office, as previously discussed. Risks and benefits of procedure explained to patient; patient verbalizes understanding. Oct, Chronic pain (ICD-10 - G89.29) Follow up Oct, Degeneration of cervical intervertebral disc (ICD-10 - M50.30) Continue with current treatment plan. [employer] Other 02-03-2023 Evaluation note* Encounter Date Diagnosis Assessment Notes Treatment Notes Treatment Clinical Notes Oct, Cervical spondylosis (ICD-10 - M47.812) Oct, Chronic pain (ICD-10 - G89.29) Oct, Occipital neuralgia (ICD-10 - M54.81) 62 year old male presents with complaints of neck pain with numbness and tingling down the left upper extremity to the fingertips. He also voices complaints of pain in the back of the skull that radiates to the left side of his head. Prior to examining the patient I reviewed recent progress notes from the referring provider, Dr. Maldonado. History, physical examination and available images are consistent with cervical degenerative disc disease, cervical spondylosis and occipital neuralgia. I recommend proceeding with a left greater and lesser occipital nerve block at his next appointment. Oct, Degeneration of cervical intervertebral disc (ICD-10 - M50.30) Oct, Other Medical deci ariel making shows a new problem to me with further workup planned or suggested with the potential for extensive treatment options that were considered with the most applicable given this patient's situation as noted above. Treatment options considered include a combination of physical therapy approaches, pharmacologic management, and interventional procedures. Those most applicable to the patient were discussed at this time. Risk of complications and/or morbidity and mortality is high given that acute and chronic pain poses a threat to life and bodily function if undertreated, poorly treated or with failure to maintain adequate treatment and timely followup. Given the serious and fluctuating nature of pain with extensive consideration for whenever pain changes, there always remains the possibility of prolonged functional impairment requiring constant patient reassessment and high-level medical decision making. The amount and complexity of data reviewed is high given that patient labs, radiology reports, and other test were obtained, reviewed and summarized as applicable from the physician portal and/or outside medical records. Pertinent positive and negative findings were considered in medical decision-making. [employer] Other 01-09-2023 Hospital Discharge instructions Patient Education 09/13/2022 11:49:44 Benign Prostatic Hyperplasia Benign Prostatic Hyperplasia Benign prostatic hyperplasia (BPH) is an enlarged prostate gland that is caused by the normal agingprocess and not by cancer. The prostate is a walnut-sized gland that is involved in the production of semen. It is located in front of the rectum and below the bladder. The bladder stores urine and the urethra is the tube that carries the urine out of the body. The prostate may get bigger as a man gets older. An enlarged prostate can press on the urethra. This can make it harder to pass urine. The build-up of urine in the bladder can cause infection. Back pressure and infection may progress to bladder damage and kidney (renal) failure. What are the causes? This condition is part of a normal aging process. However, not all men develop problems from this condition. If the prostate enlarges away from the urethra, urine flow will not be blocked. If it enlarges toward the urethra and compresses it, there will be problems passing urine. What increases the risk? This condition is more likely to develop in men over the age of 50 years. What are the signs or symptoms? Symptoms of this condition include: Getting up often during the night to urinate. Needing to urinate frequently during the day. Difficulty starting urine flow. Decrease in size and strength of your urine stream. Leaking (dribbling) after urinating. Inability to pass urine. This needs immediate treatment. Inability to completely empty your bladder. Pain when you pass urine. This is more common if there is also an infection. Urinary tract infection (UTI). How is this diagnosed? This condition is diagnosed based on your medical history, a physical exam, and your symptoms. Tests will also be done, such as: A post-void bladder scan. This measures any amount of urine that may remain in your bladder after you finish urinating. A digital rectal exam. In a rectal exam, your health care provider checks your prostate by putting a lubricated, gloved finger into your rectum to feel the back of your prostate gland. This exam detects the size of your gland and any abnormal lumps or growths. An exam of your urine (urinalysis). A prostate specific antigen (PSA) screening. This is a blood test used to screen for prostate cancer. An ultrasound. This test uses sound waves to electronically produce a picture of your prostate gland. Your health care provider may refer you to a specialist in kidney and prostate diseases (urologist). How is this treated? Once symptoms begin, your health care provider will monitor your condition (active surveillance or watchful waiting). Treatment for this condition will depend on the severity of your condition. Treatment may include: Observation and yearly exams. This may be the only treatment needed if your condition and symptoms are mild. Medicines to relieve your symptoms, including: ?Medicines to shrink the prostate. ?Medicines to relax the muscle of the prostate. Surgery in severe cases. Surgery may include: ?Prostatectomy. In this procedure, the prostate tissue is removed completely through an open incision or with a laparoscope or robotics. ?Transurethral resection of the prostate (TURP). In this procedure, a tool is inserted through the opening at the tip of the penis (urethra). It is used to cut away tissue of the inner core of the prostate. The pieces are removed through the same opening of the penis. This removes the blockage. ?Transurethral incision (TUIP). In this procedure, small cuts are made in the prostate. This lessens the prostate's pressure on the urethra. ?Transurethral microwave thermotherapy (TUMT). This procedure uses microwaves to create heat. The heat destroys and removes a small amount of prostate tissue. ?Transurethral needle ablation (TUNA). This procedure uses radio frequencies to destroy and remove a small amount of prostate tissue. ?Interstitial laser coagulation (ILC). This procedure uses a laser to destroy and remove a small amount of prostate tissue. ?Transurethral electrovaporization (TUVP). This procedure uses electrodes to destroy and remove a small amount of prostate tissue. ?Prostatic urethral lift. This procedure inserts an implant to push the lobes of the prostate away from the urethra. Follow these instructions at home: Take sgzv-glr-mmxoekw and prescription medicines only as told by your health care provider. Monitor your symptoms for any changes. Contact your health care provider with any changes. Avoid drinking large amounts of liquid before going to bed or out in public. Avoid or reduce how much caffeine or alcohol you drink. Give yourself time when you urinate. Keep all follow-up visits as told by your health care provider. This is important. Contact a health care provider if: You have unexplained back pain. Your symptoms do not get better with treatment. You develop side effects from the medicine you are taking. Your urine becomes very dark or has a bad smell. Your lower abdomen becomes distended and you have trouble passing your urine. Get help right away if: You have a fever or chills. You suddenly cannot urinate. You feel lightheaded, or very dizzy, or you faint. There are large amounts of blood or clots in the urine. Your urinary problems become hard to manage. You develop moderate to severe low back or flank pain. The flank is the side of your body between the ribs and the hip. These symptoms may represent a serious problem that is an emergency. Do not wait to see if the symptoms will go away. Get medical help right away. Call your local emergency services (911 in the [place] Do not drive yourself to the hospital. Summary Benign prostatic hyperplasia (BPH) is an enlarged prostate that is caused by the normal aging process and not by cancer. An enlarged prostate can press on the urethra. This can make it hard to pass urine. This condition is part of a normal aging process and is more likely to develop in men over the age of 50 years. Get help right away if you suddenly cannot urinate. This information is not intended to replace advice given to you by your health care provider. Make sure you discuss any questions you have with your health care provider. Document Released: 08/22/2006 Document Revised: 07/17/2019 Document Reviewed: 09/26/2017 [employer] Patient Education 2020 [employer] Follow Up Care 06/04/2022 09:25:49 With:JOSE WONG, Luis Manuel Lott, URL Address: [facility] [address] , [place] [address]- [phone] When:Within 1 Year(s) Comments:w/ ZACH [facility] 09-30-2022 Hospital Discharge instructions Patient Education 06/04/2022 09:08:24 Benign Prostatic Hyperplasia Benign Prostatic Hyperplasia Benign prostatic hyperplasia (BPH) is an enlarged prostate gland that is caused by the normal agingprocess and not by cancer. The prostate is a walnut-sized gland that is involved in the production of semen. It is located in front of the rectum and below the bladder. The bladder stores urine and the urethra is the tube that carries the urine out of the body. The prostate may get bigger as a man gets older. An enlarged prostate can press on the urethra. This can make it harder to pass urine. The build-up of urine in the bladder can cause infection. Back pressure and infection may progress to bladder damage and kidney (renal) failure. What are the causes? This condition is part of a normal aging process. However, not all men develop problems from this condition. If the prostate enlarges away from the urethra, urine flow will not be blocked. If it enlarges toward the urethra and compresses it, there will be problems passing urine. What increases the risk? This condition is more likely to develop in men over the age of 50 years. What are the signs or symptoms? Symptoms of this condition include: Getting up often during the night to urinate. Needing to urinate frequently during the day. Difficulty starting urine flow. Decrease in size and strength of your urine stream. Leaking (dribbling) after urinating. Inability to pass urine. This needs immediate treatment. Inability to completely empty your bladder. Pain when you pass urine. This is more common if there is also an infection. Urinary tract infection (UTI). How is this diagnosed? This condition is diagnosed based on your medical history, a physical exam, and your symptoms. Tests will also be done, such as: A post-void bladder scan. This measures any amount of urine that may remain in your bladder after you finish urinating. A digital rectal exam. In a rectal exam, your health care provider checks your prostate by putting a lubricated, gloved finger into your rectum to feel the back of your prostate gland. This exam detects the size of your gland and any abnormal lumps or growths. An exam of your urine (urinalysis). A prostate specific antigen (PSA) screening. This is a blood test used to screen for prostate cancer. An ultrasound. This test uses sound waves to electronically produce a picture of your prostate gland. Your health care provider may refer you to a specialist in kidney and prostate diseases (urologist). How is this treated? Once symptoms begin, your health care provider will monitor your condition (active surveillance or watchful waiting). Treatment for this condition will depend on the severity of your condition. Treatment may include: Observation and yearly exams. This may be the only treatment needed if your condition and symptoms are mild. Medicines to relieve your symptoms, including: ?Medicines to shrink the prostate. ?Medicines to relax the muscle of the prostate. Surgery in severe cases. Surgery may include: ?Prostatectomy. In this procedure, the prostate tissue is removed completely through an open incision or with a laparoscope or robotics. ?Transurethral resection of the prostate (TURP). In this procedure, a tool is inserted through the opening at the tip of the penis (urethra). It is used to cut away tissue of the inner core of the prostate. The pieces are removed through the same opening of the penis. This removes the blockage. ?Transurethral incision (TUIP). In this procedure, small cuts are made in the prostate. This lessens the prostate's pressure on the urethra. ?Transurethral microwave thermotherapy (TUMT). This procedure uses microwaves to create heat. The heat destroys and removes a small amount of prostate tissue. ?Transurethral needle ablation (TUNA). This procedure uses radio frequencies to destroy and remove a small amount of prostate tissue. ?Interstitial laser coagulation (ILC). This procedure uses a laser to destroy and remove a small amount of prostate tissue. ?Transurethral electrovaporization (TUVP). This procedure uses electrodes to destroy and remove a small amount of prostate tissue. ?Prostatic urethral lift. This procedure inserts an implant to push the lobes of the prostate away from the urethra. Follow these instructions at home: Take aeyw-zqw-cfohahm and prescription medicines only as told by your health care provider. Monitor your symptoms for any changes. Contact your health care provider with any changes. Avoid drinking large amounts of liquid before going to bed or out in public. Avoid or reduce how much caffeine or alcohol you drink. Give yourself time when you urinate. Keep all follow-up visits as told by your health care provider. This is important. Contact a health care provider if: You have unexplained back pain. Your symptoms do not get better with treatment. You develop side effects from the medicine you are taking. Your urine becomes very dark or has a bad smell. Your lower abdomen becomes distended and you have trouble passing your urine. Get help right away if: You have a fever or chills. You suddenly cannot urinate. You feel lightheaded, or very dizzy, or you faint. There are large amounts of blood or clots in the urine. Your urinary problems become hard to manage. You develop moderate to severe low back or flank pain. The flank is the side of your body between the ribs and the hip. These symptoms may represent a serious problem that is an emergency. Do not wait to see if the symptoms will go away. Get medical help right away. Call your local emergency services (911 in the [place] Do not drive yourself to the hospital. Summary Benign prostatic hyperplasia (BPH) is an enlarged prostate that is caused by the normal aging process and not by cancer. An enlarged prostate can press on the urethra. This can make it hard to pass urine. This condition is part of a normal aging process and is more likely to develop in men over the age of 50 years. Get help right away if you suddenly cannot urinate. This information is not intended to replace advice given to you by your health care provider. Make sure you discuss any questions you have with your health care provider. Document Released: 08/22/2006 Document Revised: 07/17/2019 Document Reviewed: 09/26/2017 [employer] Patient Education 2020 [employer]. Follow Up Care 05/07/2022 08:41:26 With:JOSE WONG, Luis Manuel Lott, URL Address: [address] [place] [address]- When: Unknown [facility] 08-15-2022 Hospital Discharge instructions Patient Education 04/19/2022 10:24:31 Kidney Stones, Ikiq-er-Jfuv Kidney Stones Kidney stones are rock-like masses that form inside of the kidneys. Kidneys are organs that make pee (urine). A kidney stone may move into other parts of the urinary tract, including: The tubes that connect the kidneys to the bladder (ureters). The bladder. The tube that carries urine out of the body (urethra). Kidney stones can cause very bad pain and can block the flow of pee. The stone usually leaves your body (passes) through your pee. You may need to have a doctor take out the stone. What are the causes? Kidney stones may be caused by: A condition in which certain glands make too much parathyroid hormone (primary hyperparathyroidism). A buildup of a type of crystals in the bladder made of a chemical called uric acid. The body makes uric acid when you eat certain foods. Narrowing (stricture) of one or both of the ureters. A kidney blockage that you were born with. Past surgery on the kidney or the ureters, such as gastric bypass surgery. What increases the risk? You are more likely to develop this condition if: You have had a kidney stone in the past. You have a family history of kidney stones. You do not drink enough water. You eat a diet that is high in protein, salt (sodium), or sugar. You are overweight or very overweight (obese). What are the signs or symptoms? Symptoms of a kidney stone may include: Pain in the side of the belly, right below the ribs (flank pain). Pain usually spreads (radiates) to the groin. Needing to pee often or right away (urgently). Pain when going pee (urinating). Blood in your pee (hematuria). Feeling like you may vomit (nauseous). Vomiting. Fever and chills. How is this treated? Treatment depends on the size, location, and makeup of the kidney stones. The stones will often pass out of the body through peeing. You may need to: Drink more fluid to help pass the stone. In some cases, you may be given fluids through an IV tube put into one of your veins at the hospital. Take medicine for pain. Make changes in your diet to help keep kidney stones from coming back. Sometimes, medical procedures are needed to remove a kidney stone. This may involve: A procedure to break up kidney stones using a beam of light (laser) or shock waves. Surgery to remove the kidney stones. Follow these instructions at home: Medicines Take vwra-icf-cokllja and prescription medicines only as told by your doctor. Ask your doctor if the medicine prescribed to you requires you to avoid driving or using heavy machinery. Eating and drinking Drink enough fluid to keep your pee pale yellow. You may be told to drink at least 8 10 glasses of water each day. This will help you pass the stone. If told by your doctor, change your diet. This may include: ?Limiting how much salt you eat. ?Eating more fruits and vegetables. ?Limiting how much meat, poultry, fish, and eggs you eat. Follow instructions from your doctor about eating or drinking restrictions. General instructions Collect pee samples as told by your doctor. You may need to collect a pee sample: ?24 hours after a stone comes out. ?8 12 weeks after a stone comes out, and every 6 12 months after that. Strain your pee every time you pee (urinate), for as long as told. Use the strainer that your doctor recommends. Do not throw out the stone. Keep it so that it can be tested by your doctor. Keep all follow-up visits as told by your doctor. This is important. You may need follow-up tests. How is this prevented? To prevent another kidney stone: Drink enough fluid to keep your pee pale yellow. This is the best way to prevent kidney stones. Eat healthy foods. Avoid certain foods as told by your doctor. You may be told to eat less protein. Stay at a healthy weight. Where to find more information National Kidney Foundation (NKF): www.kidney.org [employer] (UCF): www.urologyhealth.org Contact a doctor if: You have pain that gets worse or does not get better with medicine. Get help right away if: You have a fever or chills. You get very bad pain. You get new pain in your belly (abdomen). You pass out (faint). You cannot pee. Summary Kidney stones are rock-like masses that form inside of the kidneys. Kidney stones can cause very bad pain and can block the flow of pee. The stones will often pass out of the body through peeing. Drink enough fluid to keep your pee pale yellow. This information is not intended to replace advice given to you by your health care provider. Make sure you discuss any questions you have with your health care provider. Document Released: 02/07/2009 Document Revised: 01/08/2020 Document Reviewed: 01/08/2020 [employer] Patient Education 2019 [employer]. Follow Up Care 04/12/2022 17:34:24 With:JOSE WONG, Luis Manuel Lott, URL Address: [facility] [address], [place] [address] [phone] When: Unknown [facility] 10-27-2021 Evaluation note* Encounter Date Diagnosis Assessment Notes Treatment Notes Treatment Clinical Notes Jun, Contact with and (suspected) exposure to other viral communicable diseases (ICD-10 - Z20.828) Jun, Bronchitis (ICD-10 - J40) Jun, Viral upper respiratory illness (ICD-10 - J06.9) Jun, Other Additional time spent conducting pre-visit phone call, screening for symptoms, instructions on social distancing, application and removal of PPE, and cleaning of examination room, equipment and supplies was preformed. Patient education given for testing methodology and results. Patient care instructions given in writting by [facility] At Home document. [employer] Other Evaluation + Plan note No data available for this section [facility] Future Appointments Appointment Date:09/13/2022 10:45:00 AM Scheduled Provider:Luis Manuel LENZ MD Location:[facility] Appointment Type:URO Office Visit [facility] evaluation + Plan note Future Appointments Appointment Date:09/16/2023 09:45:00 AM Scheduled Provider:Luis Manuel LENZ MD Location:[facility] Appointment Type:URO Office Visit [facility] evaluation noteNo assessment information available [facility] Work Phone: evaluation noteNo InformationN[employer] Other Hisulvj general Narrative - Reported* Type Description Date Medical History hypertension Medical History cold sores Surgical History b/l shoulder surgery Hospitalization History chest pain, cleared 2001 [employer] Other Hisotjo general Narrative - Reported* Type Description Date Medical History hypertension Medical History cold sores Medical History anxiety Surgical History b/l shoulder surgery Surgical History knee replacement Surgical History TURP Surgical History shoulder surgery Hospitalization History chest pain, cleared 2001 [employer] Other Hospital Discharge instructions No data available for this section [facility] No data available for this section [facility] Summary Purpose Family History No Family History Records Found Relationship Condition Age at Onset Recorded Date/T dimitry Not Specified No pertinent family history Unknown Relationship Condition Age at Onset Recorded Date/T dimitry Not Specified No pertinent family history Unknown Not Specified Dementia Unknown father Heart problem Unknown Advance Directives No Advanced Directives Records Found Advance Directive Response Recorded Date/ Time Advance Directives No April 16, 2022 10:35am Chief Complaint and Reason for Visit Chief Complaint fracture dislocation Chief Complaint pain Chief Complaint pain Neck Pain Neck Pain Additional Source Comments REASON FOR VISIT (unrecogniz ed section and content) #30 WHITE IRINA, COUGH, CONGES TION, WHEEZING, SOBREF BY DR MALDONADO FOR NECK PAINPain Medicine office notesleft occipital nerve blockf/u after left occipital branch NBLEFT C2-3, C3-4 CERVICAL FACET MBBF/U AFTER C2-3, 3-4 CERVICAL MBBleft cervical facet medial branch nerve block C2-3, C3-4follow up after left cervical facet mbbleft cervical facet medial branch RFA L2-3, L3-4 Care Team (unrecognized sect ion and content) Team Status: Inactive Member Role Status Dates Amber Lentz , [employer] 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 FAMILY Primary Care Provider Active Team Status: Active Member Role Status Dates PHYSICIAN NO FAMILY Primary Care Provider Active Team Status: Active Member Role Status Dates Gilda Cummins MD Primary Care Provider Active Team Status: Inactive Member Role Status Dates Saravanan Torres MD Attending Provider Active Gilda Cummins MD Primary Care Provider Active Team Status: Inactive Member Role Status Dates Gilda Cummins MD Primary Care Provider Active Saravanan Torres MD Attending Provider Active (unrecognized sect ion and content) No Status Records FoundNo Status Records FoundNo Status Records FoundNo Status Records FoundNo Status Records FoundNo Status Records Found INFORMATION SOURCE (unrecogn ized section and content) DATE CREATED AUTHOR 04/14/2022 [facility] DATE CREATED AUTHOR AUTHOR'S ORGANIZ ATION 08/31/2022 [facility] dical Specialist DATE CREATED AUTHOR AUTHOR'S ORGANIZ ATION 09/30/2022 [facility] DATE CREATED AUTHOR AUTHOR'S ORGANIZ ATION 01/13/2023 [facility] DATE CREATED AUTHOR AUTHOR'S ORGANIZ ATION 08/16/2023 [facility] dical Specialists [facility] DATE CREATED AUTHOR AUTHOR'S ORGANIZ ATION 09/10/2023 [facility] Goals (unrecognized section and content) Goals may be documented in a n alternate section FOR RECORDS PERTAINING TO PATIENTS WHO ARE OR HAVE BEEN ENROLLED IN A CHEMICAL DEPENDENCY/SUBSTANCEABUSE PROGRAM, SOME INFORMATION MAY BE OMITTED. This clinical summary was aggregated from multiple sources. Caution should be exercised in using it in the provision of clinical care. This summary normalizes information from multiple sources, and as a consequence, information in this document may materially change the coding, format and clinical context of patient data. In addition, data may be omitted in some cases. CLINICAL DECISIONS SHOULD BE BASED ON THE PRIMARY CLINICAL RECORDS. [facility]. provides no warranty or guarantee of the accuracy or completeness of information in this document.
== END 2023-09-21 12:00 | disposition home or self-care (01) ==
LOC: RAD 09-22 11:59
PROVIDERS: PCP Family Medicine; Visit Provider Urology
DX: N20.0 Calculus of kidney (principal); Z87.442 Personal history of urinary calculi
CPT/HCPCS: 74018

== ENCOUNTER 2023-10-12 13:43 | Outpatient (OUT) | payer BC, SELFPAY ==
[2023-10-12 14:34] LABS: Basophils Percent Auto 0.4 % (0.2-2.0); Eosinophils Absolute Auto 0.1 10^3/uL (0.0-0.7); Eosinophils Percent Auto 1.2 % (0.9-7.0); Hematocrit 45.9 % (42.0-54.0); Hemoglobin 15.5 g/dL (14.0-18.0); Immature Granulocytes Abs Auto 0.05 10^3/uL (0.00-0.03); Immature Granulocytes Pct Auto 0.6 % (0.0-0.5); Lymphocytes Absolute Auto 2.2 10^3/uL (1.2-3.8); Lymphocytes Percent Auto 26.6 % (20.5-60.0); Mean Corpuscular HGB Conc 33.8 g/dL (29.9-35.2); Mean Platelet Volume 9.3 fL (9.5-13.5); Monocytes Absolute Auto 0.7 10^3/uL (0.3-0.8); Monocytes Percent Auto 8.4 % (1.7-12.0); Neutrophils Absolute Auto 5.1 10^3/uL (1.4-6.5); Neutrophils Percent Auto 62.8 % (43.0-75.0); Platelet Count 204 10^3/uL (150-450); Red Blood Count 5.16 10^6/uL (4.70-6.10); Red Cell Distribution Width 12.3 % (11.0-15.0); White Blood Count 8.1 10^3/uL (4.0-11.0)
[2023-10-12 15:23] LABS: Prostate Specific Antigen Scrn 0.45 ng/mL (<=4.00)
[2023-10-12 15:48] LABS: Alanine Aminotransferase 37 U/L (16-63); Albumin Level 3.6 g/dL (3.4-5.0); Alkaline Phosphatase 69 U/L (46-116); Anion Gap 13.3; Aspartate Amino Transferase 24 U/L (15-37); BUN Creatinine Ratio 11.2; Calcium 8.7 mg/dL (8.5-10.1); Carbon Dioxide 29.5 mmol/L (21.0-32.0); Chloride 102 mmol/L (98-107); Chol HDL Ratio 4.2; Cholesterol 194 mg/dL (<=200); Estimated GFR (African America >60 (>=60); Estimated GFR (Non-African Ame >60 (>=60); Free T3 3.39 pg/mL (2.18-3.98); Globulin 3.5 g/dL; Glucose 90 mg/dL (74-106); HDL Cholesterol 46 mg/dL (40-60); LDL Cholesterol Calculated 129.8 mg/dL; Potassium 3.8 mmol/L (3.5-5.1); Sodium 141 mmol/L (136-145); Thyroid Stimulating Hormone 1.479 uIU/mL (0.358-3.740); Total Protein 7.1 g/dL (6.4-8.2); Triglycerides 91 mg/dL (<=150); VLDL CHOLESTEROL 18.2 mg/dL
[2023-10-12 15:59] LABS: Estimated Average Glucose 111 mg/dL; Glycohemoglobin A1C 5.5 % (4.5-6.2)
== END 2023-10-12 13:44 | disposition home or self-care (01) ==
LOC: LAB 13:46
PROVIDERS: PCP Family Medicine; Visit Provider Family Medicine
DX: Z00.00 Encounter for general adult medical examination without abnormal findings (principal); E78.5 Hyperlipidemia, unspecified; R73.09 Other abnormal glucose; Z12.5 Encounter for screening for malignant neoplasm of prostate
CPT/HCPCS: 36415; 80053; 80061; 83036; 84436; 84443; 84481; 85025; G0103

== ENCOUNTER 2023-11-01 13:22 | Outpatient (OUT) | payer BC, SELFPAY | END 2023-11-01 13:23 | disposition home or self-care (01) | LOC: PST 13:22 | PROVIDERS: PCP Family Medicine; Visit Provider Surgery | DX: Z12.11 Encounter for screening for malignant neoplasm of colon (principal) ==

== ENCOUNTER 2023-11-09 07:34 | Day surgery (SDC) | payer BC, SELFPAY ==
--- NOTE | 2023-11-09 | OP_ITS ---
OPERATION DATE: 11/09/2023 PREOPERATIVE DIAGNOSIS: Colorectal screening. POSTOPERATIVE DIAGNOSIS: Normal colonoscopy to cecum. PROCEDURE: Colonoscopy to cecum. SURGEON: Tomas Leyva M.D. ANESTHESIA: Monitored anesthesia care. ESTIMATED BLOOD LOSS: Zero. INDICATIONS AND CONSENT: Patient is a 63-year-old male, presents for colorectal screening. Indications, risks, benefits, alternatives of proceeding with colonoscopy were explained extensively to the patient, including the risks of bleeding, colon perforation or anesthetic complications. All of his questions were answered. Informed consent was obtained. PROCEDURE: Patient brought to the operating room, placed in the left lateral decubitus position. Monitored anesthesia care was provided. Rectal exam was performed which showed no masses or blood. The scope was inserted into the anal canal. Under direct visualization was advanced. It was advanced to the cecum, where cecal markings were clearly identified. There was noted to be a good prep. Upon withdrawal of the scope, mucosal surfaces were carefully examined. There were no mass lesions or polyps. No inflammatory changes or ulcerations. No significant diverticulosis. The scope was retroflexed in the anal canal. There was no significant hemorrhoidal disease. Scope was then withdrawn. Patient tolerated procedure well, was sent to recovery room in good condition. f/u screening colonoscopy should be in 10 years. CC: Asim Cummins M.D. GENIE
--- OUTSIDE RECORDS SUMMARY | 2023-11-09 07:37 | XMS_ITS | CCD ---
Author Name Unknown Address [address] [facility] [address] [place] [address] Organization [facility] Care Team Providers Care Geodetic Advisor Name Role Phone Radha Callaway Unavailable Gilda Cumimns Primary Care Physician [facility]QU[facility] Amber aKy Attending Provider NO FAMILY, PHYSICIAN Primary Care [...] Consulting Unavailable MARC, DR VO Admitting Unavailable AMRC, DR VO Primary Care Unavailable CHEPEY, DR [...] Provider MD Gilda Cummins Primary Care Provider [phone] Gilda Cummins Primary Care Unavailable Brian, Saravanan [...] CAM Attending Unavailable TRACEY CAM Referring Unavailable Arun LENZ Attending Unavailable Arun LENZ Attending Unavailable Tomas AMEZQUITA Attending Unavailable Arun LENZ Attending Unavailable Allergies Allergy Classification Reported Allergen(s) Allergy Type Date of Onset Reaction(s) Facility (1 source) No Known Medication Allergies; Translations: [No Known Medication Allergies] Propensity to adverse reactions (disorder) [facility] Repository Medications Current Medications Medication Drug Class(es) Dates Sig (Normalized) Sig (Original) acyclovir 200 mg oral tablet (5 sources) Herpesvirus Nucleoside Analog DNA Polymerase Inhibitor, Herpes Simplex Virus Nucleoside Analog DNA Polymerase Inhibitor, Herpes Zoster Virus Nucleoside Analog DNA Polymerase Inhibitor Start: 03-06-2019 take 200 mg by mouth twice daily acyclovir 200 mg, Oral, BID, Refills(s) 0 Start Date: 03/06/19 Status: Ordered [id number] 200 actuat albuterol 0.09 mg/actuat metered dose [...] 2022 12:00am aspirin 81 mg oral tablet (17 sources) Platelet Aggregation Inhibitor, Nonsteroidal Anti-inflammatory Drug Start: 05-01-2019 take 81 mg by mouth once daily Aspirin Active 81 MG PO Daily December 01, 2022 12:00am Baby Aspirin Act cali atomoxetine 40 mg oral capsule (2 sources) Norepinephrine Reuptake Inhibitor Start: 10-04-2023 take 1 capsule by mouth once daily in the morning Strattera 40 mg Cap 40 mg = 1 cap(s), Oral, qAM, Refills(s) 0 Start Date: 10/04/23 Status: Ordered Strattera Active azithromycin 250 mg oral tablet (1 source) Macrolide Antimicrobial Start: 07-01-2021 Zithromax 250 MG 2 tablet on the first day, then 1 tablet daily for 4 days Orally Once a day for 5 day(s) Jun, Active Baclofen (1 source) gamma-Aminobutyric Acid-ergic Agonist Baclofen Active cholecalciferol 0.125 mg oral capsule (2 sources) Vitamin D Start: 12-01-2022 take 5000 [IU] by mouth once daily Cholecalciferol (Vitamin D3) Active 5000 UNIT PO Daily December 01, 2022 12:00am DHEA 50 (1 source) DHEA 50 Active guanFACINE 2 mg oral tablet (1 source) Central alpha-2 Adrenergic Agonist Start: 01-12-2023 take 2 mg by mouth once daily Guanfacine Active 2 MG PO Daily January 12, 2023 12:00am levothyroxine sodium 0.1 mg oral tablet (6 sources) l-Thyroxine Start: 10-12-2023 take 1 tablet by mouth once daily levothyroxine 100 mcg (0.1 mg) Tab 100 mcg = 1 tab(s), Oral, Daily, Refills(s) 0 Start Date: 10/12/23 Status: Ordered Start: 01-12-2023 take 100 ug by mouth once daily Levothyroxine Active 100 MCG PO Daily January 12, 2023 12:00am Start: 04-19-2022 levothyroxine Daily, Refills(s) 0 Start Date: 04/19/22 Status: Ordered Lisinopril (1 source) Angiotensin Converting Enzyme Inhibitor Lisinopril Active losartan potassium 50 mg oral tablet (16 sources) Angiotensin 2 Receptor Renate Start: 04-19-20 take 1 tablet by mouth once daily losartan 50 mg Tab 50 mg = 1 tab(s), Oral, Daily, Refills(s) 0 Start Date: 04/19/22 Status: Ordered methylphenidate hydrochloride 10 mg oral tablet (15 sources) Central Nervous System Stimulant Start: 12-02-19 Methylphenidate Hcl Active 20 MG PO As Directed December 01, 2022 12:00am Start: 12-01-2022 Methylphenidat e Hcl Active 10 MG PO As Directed December 01, 2022 12:00am Start: 04-19-2022 methylphenidat e Refills(s) 0 Start Date: 04/19/22 Status: Ordered take 2 tablets by mo [facility] once daily Methylphenidate HCl 10 MG TAKE 2 TABLETS BY MOUTH EVERY DAY Oral for 30 Days Active Multivitamin preparation (17 sources) Start: 12-01-2022 take 1 tablet by mouth once daily Multivitamin Active 1 TAB PO Daily December 01, 2022 12:00am Start: 04-19-2022 take 1 tablet by [facility] once daily multivitamin 1 tab(s), Oral, Daily, Refill(s) 0 Start Date: 04/19/22 Status: Ordered Start: 04-19-2022 multivitamin D aily, Refill(s) 0 Start Date: 04/19/22 Status: Ordered Multivitamin Not -Taking Multivitamin Act cali oxaprozin 600 mg oral tablet (16 sources) Nonsteroidal Anti-inflammatory Drug Start: 01-12-2023 take 1200 mg by mouth once daily Oxaprozin Active 1200 MG PO Daily January 12, 2023 12:00am Start: 04-19-2022 End: 12-22-2022 take 1 mg by mouth once daily oxaprozin 600 mg Tab mg tab(s), Oral, Daily, Refills(s) 0 Start Date: 04/19/22 Status: Ordered predniSONE 20 mg oral tablet (1 source) [...] 12:00am traZODone hydrochloride 50 mg oral tablet (7 sources) Serotonin Reuptake Inhibitor Start: 01-12-2023 take 100 mg by mouth once daily at bedtime Trazodone Active 100 MG PO Daily at bedtime January 12, 2023 12:00am Start: 04-19-2022 take 1 tablet by [facility] once daily at bedtime traZODONE 100 mg Tab 100 mg = 1 tab(s), Oral, Once a day (at bedtime), Refills(s) 0 Start Date: 04/19/22 Status: Ordered traZODone HCl Ac tive Vitamin D3 (15 sources) Start: 04-19-2022 take 5000 [IU] by [facility] once daily Vitamin D3 5,000 unit(s), Oral, Daily, Refills(s) 0 Start Date: 04/19/22 Status: Ordered Start: 04-19-2022 Vitamin D3 Ref ills(s) 0 Start Date: 04/19/22 Status: Ordered Vitamin D3 Activ e Completed/Discontinued Medications Medication Drug Class(es) Dates Sig (Normalized) Sig (Original) Augmentin Tablets 875 MG (9 sources) Augmentin Tablet s 875 MG Take as directed Not-Taking Augmentin Tablet s 875 MG Take as directed Active docusate sodium 100 mg oral capsule (4 sources) Start: 10-12-2023 take 1 capsule by mo ut once daily as needed Start: 01-12-2023 take 1 capsule by mo uth once daily Docusate Sodium (Colace) 50 mg Capsule Active 50 MG PO Daily January 12, 2023 12:00am Start: 12-01-2022 End: 01-12-2023 take 1 capsule by mouth every other day Docusate Sodium (Colace) 100 mg Capsule Discontinued 100 MG PO As Directed December 01, 2022 12:00am January 12, 2023 9:27am every other day triamcinolone acetonide 40 mg/ml injectable suspension (9 sources) Corticosteroid Start: 10-18-2022 Kenalog-40 13 Oct, 2022 40 mg Problems Active Problems Problem Classification Problem Date Documented Date Episodic/Chronic Anxiety disorders (1 source) Anxiety 10-12-2023 Chronic Attention-deficit, conduct, and disruptive behavior disorders (1 source) Attention deficit hyperactivity disorder 10-12-2023 Chronic Calculus of urinary tract (18 sources) Kidney stone; Translations: [Calculus of kidney] Onset: 04-19-2022 03-06-2019 Episodic Chronic obstructive pulmonary disease and bronchiectasis (1 source) Chronic obstructive pulmonary disease, unspecified; Translations: [COPD UNSPECIFIED] Onset: 03-24-2022 Chronic Deficiency and other anemia (1 source) Anemia 10-12-2023 Episodic Diseases of white blood cells (1 source) Elevated white blood cell count, unspecified; Translations: [ELEVATED WHITE BLOOD CELL COUNT UNS] Onset: 03-24-2022 Chronic Diverticulosis and diverticulitis (1 source) Diverticular disease 10-12-2023 Chronic Essential hypertension (2 sources) Essential (primary) hypertension; Translations: [Hypertensive disorder] Onset: 03-24-2022 10-12-2023 Chronic Genitourinary symptoms and ill-defined conditions (4 sources) Presence of urogenital implants; Translations: [PRESENCE OF UROGENITAL IMPLANTS] Onset: 03-29-2022 Chronic Genitourinary symptoms and ill-defined conditions (10 sources) Microscopic hematuria; Translations: [Asymptomatic microscopic hematuria] Onset: 04-05-2022 Episodic Headache; including migraine (6 sources) Migraine 03-06-2019 Chronic Hyperplasia of prostate (14 sources) Benign prostatic hypertrophy with outflow obstruction; Translations: [Benign prostatic hyperplasia with lower urinary tract symptoms] Onset: 03-30-2022 Chronic Inflammatory conditions of male genital organs (1 source) Chronic prostatitis; Translations: [CHRONIC PROSTATITIS] Onset: 05-13-2022 Chronic Mood disorders (1 source) Depressive disorder 10-12-2023 Chronic Osteoarthritis (7 sources) Arthritis; Translations: [Unspecified osteoarthritis, unspecified site] Onset: 05-13-2022 03-06-2019 Chronic Other diseases of bladder and urethra (1 source) Bladder disorder, unspecified; Translations: [BLADDER DISORDER UNSPECIFIED] Onset: 05-13-2022 Chronic Other diseases of bladder and urethra (1 source) Other specified disorders of bladder; Translations: [OTHER SPECIFIED DISORDERS BLADDER] Onset: 03-30-2022 Chronic Other diseases of bladder and urethra (4 sources) Male urethral stricture; Translations: [Unspecified urethral stricture, male, unspecified site] Onset: 04-19-2022 Episodic Other diseases of bladder and urethra (5 sources) Urethral stricture 04-19-2022 Episodic Other diseases of bladder and urethra (1 source) Unspecified urethral stricture, male, unspecified site; Translations: [UNSP URETHRAL STRCT MALE UNSP SITE] Onset: 09-30-2022 Episodic Other diseases of kidney and ureters (2 sources) Urinary tract obstruction; Translations: [Other obstructive and [...] INDEX BMI 37.0-37.9 ADULT] Onset: 03-24-2022 Chronic Other nutritional; endocrine; and metabolic disorders (2 sources) Body mass index 40+ - severely obese; Translations: [Body mass index (BMI) 40.0-44.9, adult] Onset: 10-25-2023 Chronic Other nutritional; endocrine; and metabolic disorders (1 source) Morbid obesity 10-25-2023 Chronic Other screening for suspected conditions (not mental disorders or infectious disease) (1 source) Screening for malignant neoplasm of colon done; Translations: [Encounter for screening for malignant neoplasm of colon] Onset: 10-25-2023 Episodic Residual codes; unclassified (5 sources) Sleep apnea 03-06-2019 Chronic Residual codes; unclassified (1 source) Sleep apnea, unspecified; Translations: [SLEEP APNEA UNSPECIFIED] Onset: 05-13-2022 Chronic Residual codes; unclassified (1 source) Obstructive sleep apnea syndrome 10-12-2023 Chronic Residual codes; unclassified (1 source) Chronic pain 10-12-2023 Episodic Residual codes; unclassified (1 source) Insomnia 10-12-2023 Episodic Spondylosis; intervertebral disc disorders; other back problems (20 sources) Spondylosis without myelopathy or radiculopathy, cervical region; Translations: [Other intervertebral disc degeneration, lumbar region] Onset: 11-16-2021 Chronic Thyroid disorders (1 source) Hypothyroidism 10-12-2023 Chronic Unclassified (5 sources) Asymptomatic microscopic hematuria 04-19-2022 Unclassified (1 source) PERSONAL HISTORY OF COVID-19; Translations: [PERSONAL HISTORY OF COVID-19] Onset: 05-13-2022 Unclassified (1 source) CONTACT W/AND (SUSP) EXPOS COVID-19; Translations: [CONTACT W/AND (SUSP) EXPOS COVID-19] Onset: 05-03-2022 Unclassified (1 source) Pain in left shoulder; Translations: [Pain in left shoulder] Onset: 04-14-2022 Unclassified (1 source) Patient encounter status 10-25-2023 Varicose veins of lower extremity (2 sources) Skin ulcer due to varicose veins; Translations: [Varicose veins of lower extremity] 10-12-2023 Episodic Past or Other Problems Problem Classification Problem [...] Resolved: 07-01-2021 Episodic Other aftercare (1 source) long term care administrator (current) use of aspirin; Translations: [CORROSION CONTROL FITTER CURRENT USE OF ASPIRIN] Onset: 05-13-2022 Episodic Other aftercare (1 source) Other chcf (current) drug therapy; Translations: [OTH CORROSION CONTROL FITTER CURRENT DRUG THERAPY] Onset: 05-13-2022 Episodic Other aftercare (1 source) long term care administrator (current) use of anticoagulants; Translations: [CORROSION CONTROL FITTER CURRNT USE ANTICOAGULANTS] Onset: 05-03-2022 Episodic Other [...] HISTORY OF NICOTINE DEPEND] Onset: 03-24-2022 Episodic Spondylosis; intervertebral disc disorders; other back problems (20 sources) Radiculopathy, cervical region; Translations: [Dorsalgia, unspecified] Onset: 11-18-2021 Episodic Results Test Name Value Interpretation Reference Range Facility Consent for Procedure/Surger yon 10-27-2023 Consent for Procedure/Surgery [id number] FF [facility] Insurance Correspondenceon 0 10-26-2023 Insurance Correspondence [id number]#[id number] FF [facility] from [facility] called and confirmed colonoscopy approved and gave another aurh # for a lift /injection/bx # [id number] if needed [facility] Ambulatory Visit Summaryon 0 10-25-2023 Ambulatory Visit Summary PAUL VALENTINO :1960 Visit Date:10/25/2023 Ambulatory Visit Instructions Your Diagnosis Screening for malignant neoplasm of colon BMI 40.0-44.9, adult Your Care Team Attending Physician - BIA WONG, Tomas Lott Primary Care Physician - Gidla Cummins MD This Is Your Medications List Contact prescribing physician if questions or concerns atomoxetine (Strattera 40 mg Cap) cholecalciferol (Vitamin D3) docusate (Colace 100 mg Cap) levothyroxine (levothyroxine 100 mcg (0.1 mg) Tab) losartan (losartan 50 mg Tab) multivitamin trazodone (traZODONE 100 mg Tab) Procedures Performed Transurethral resection of prostate (05/06/2022), Colonoscopy (10/08/2013), Arthroplasty of right knee, Clavicle, Cystoscopy, EGD - esophagogastroduodenosco py, Lithotripsy. Discharge Vitals Heart Rate (Peripheral) 76 Respiratory Rate 16 Blood Pressure 130/94 Height 178 cm Height 70 in Weight 130 kg Weight 286 lb BMI 41.03 What to do next Scheduled Follow-Up Appointments Tuesday 11:30 AM EST With: Arun LENZ MD Where: [facility] Physician Referralon 024 Physician Referral [id number] F [facility] Ambulatory Visit Summaryon 0 09-26-2023 Ambulatory Visit Summary PAUL VALENTINO :1960 Visit Date:09/26/2023 Ambulatory Visit Instructions Your Diagnosis BPH with obstruction/lower urinary tract symptoms Kidney stones Asymptomatic microscopic hematuria Urethral stricture History of kidney stones Other obstructive and reflux uropathy Tests Performed Urnls Dip Stick Auto w/o Microscopy POC 7[address]97 CT Abdomen/Pelvis w/o Contrast -- Results Pending -- Please visit your patient portal for your results or contact your primary care physician. Your Care Team Attending Physician - Arun LENZ MD Primary Care Physician - Gilda Cummins MD This Is Your Medications List Contact prescribing physician if questions or concerns acyclovir aspirin cholecalciferol (Vitamin D3) levothyroxine losartan (losartan 50 mg Tab) methylphenidate multivitamin oxaprozin (oxaprozin 600 mg Tab) trazodone (traZODONE 100 mg Tab) Procedures Performed Transurethral resection of prostate (05/06/2022), Arthroplasty of knee (2021), Clavicle, Lithotripsy. Discharge Vitals Heart Rate (Peripheral) 65 Respiratory Rate 16 Blood Pressure 126/83 Height 178 cm Height 70 in Weight 116.2 kg Weight 255.64 lb BMI 36.67 What to do next Scheduled Follow-Up Appointments Tuesday 11:30 AM EST With: Arun LENZ MD Where: [facility] Patient Educationon 09-26-19 24 Patient Education Nephrology Dietary Guidelines to Help Prevent Kidney Stones Kidney stones are deposits of minerals and salts that form inside your kidneys. Your risk of developing kidney stones may be greater depending on your diet, your lifestyle, the medicines you take, and whether you have certain medical conditions. Most people can lower their risks of developing kidney stones by following these dietary guidelines. Your dietitian may give you more specific instructions depending on your overall health and the type of kidney stones you tend to develop. What are tips for following this plan? Reading food labels ? Choose foods with no salt added or low-salt labels. Limit your salt (sodium) intake to less than 1,500 mg a day. ? Choose foods with calcium for each meal and snack. Try to eat about 300 mg of calcium at each meal. Foods that contain 200?500 mg of calcium a serving include: ? 8 oz (237 mL) of milk, dqerans-lmkohadgtahe-pbf ry milk, and calcium-fortifiedfruit juice. Calcium-fortified means that calcium has been added to these drinks. ? 8 oz (237 mL) of kefir, yogurt, and soy yogurt. ? 4 oz (114 g) of tofu. ? 1 oz (28 g) of cheese. ? 1 cup (150 g) of dried figs. ? 1 cup (91 g) of cooked broccoli. ? One 3 oz (85 g) can of sardines or mackerel. Most people need 1,000?1,500 mg of calcium a day. Talk to your dietitian about how much calcium is recommended for you. Shopping ? Buy plenty of fresh fruits and vegetables. Most people do not need to avoid fruits and vegetables, even if these foods contain nutrients that may contribute to kidney stones. ? When shopping for convenience foods, choose: ? Whole pieces of fruit. ? Pre-made salads with dressing on the side. ? Low-fat fruit and yogurt smoothies. ? Avoid buying frozen meals or prepared deli foods. These can be high in sodium. ? Look for foods with live cultures, such as yogurt and kefir. ? Choose high-fiber grains, such as whole-wheat breads, oat bran, and wheat cereals. Cooking ? Do not add salt to food when cooking. Place a salt shaker on the table and allow each person to add their own salt to taste. ? Use vegetable protein, such as beans, textured vegetable protein (TVP), or tofu, instead of meat in pasta, casseroles, and soups. Meal planning ? Eat less salt, if told by your dietitian. To do this: ? Avoid eating processed or pre-made food. ? Avoid eating fast food. ? Eat less animal protein, including cheese, meat, poultry, or fish, if told by your dietitian. To do this: ? Limit the number of times you have meat, poultry, fish, or cheese each week. Eat a diet free of meat at least 2 days a week. ? Eat only one serving each day of meat, poultry, fish, or seafood. ? When you prepare animal proteins, cut pieces into small portion sizes. For most meat and fish, one serving is about the size of the palm of your hand. ? Eat at least five servings of fresh fruits and vegetables each day. To do this: ? Keep fruits and vegetables on hand for snacks. ? Eat one piece of fruit or a handful of berries with breakfast. ? Have a salad and fruit at lunch. ? Have two kinds of vegetables at dinner. ? You may be told to limit foods that are high in a substance called oxalate. These include: ? Spinach (cooked), rhubarb, beets, sweet potatoes, and [place] chard. ? Peanuts. ? Potato chips, divehi fries, and baked potatoes with skin on. ? Nuts and nut products. ? Chocolate. ? If you regularly take a diuretic medicine, make sure to eat at least 1 or 2 servings of fruits or vegetables that are high in potassium each day. These include: ? Avocado. ? Banana. ? [place], prune, carrot, or tomato juice. ? Baked potato. ? Cabbage. ? Beans and split peas. Lifestyle ? Drink enough fluid to keep your urine pale yellow. This is the most important thing you can do. Spread your fluid intake throughout the day. ? If you drink alcohol: ? Limit how much you have to: ? 0?1 drink a day for women who are not . ? 0?2 drinks a day for men. ? Know how much alcohol is in your drink. In the [place] one drink equals one 12 oz bottle of beer (355 mL), one 5 oz glass of wine (148 mL), or one 1? oz glass of hard liquor (44 mL). ? Lose weight if told by your health care provider. Work with your dietitian to find an eating plan and weight loss strategies that work best for you. General information ? Talk to your health care provider and dietitian about taking daily supplements. Depending on your health and the cause of your kidney stones, you may be told: ? Do not take high-dose supplements of vitamin C (1,000 mg a day or more). ? To take a calcium supplement. ? To take a daily probiotic supplement. ? To take other supplements such as magnesium, fish oil, or vitamin B6. ? Take qdef-pyr-fpnmxir and prescription medicines only as told by your health care provider. These include supplements. What foods sh (more content not included)... Normal [facility] Reminderson 09-26-2023 Reminders - From: Ashleigh Weldon To: [facility] - Recalls Lenz; Sent: 09/26/2023 13:21:11 EST Show up: 08/05/2024 13:21:00 EST Subject: Ct scan Due Date/Time: 08/27/2024 13:21:00 EST Reminder/Recall Pt needs Ct scan w/o contrast, and PSA (if not done by PCP) prior to Sep 2024 f/u appt, He would like it at [facility]. [facility] Urology Office/Clinic Noteon 09-26-2023 Urology Office/Clinic Note Chief Complaint hx of kidney stones HPI Staff 1yr KUB DX: BPH, Microscopic Hematuria, Hx of Kidney Stones & Urethral Stricture KUB 09/28/22 *pt was called with results 09/21/23 Per last encounter PSA's checked by PCP. No new results on [facility] Dysuria: no Incomplete bladder emptying: no Hematuria: no Frequency: no Urgency: no Nocturia: does not usually get up Stream: good steady stream Leaking: no Post void dripping: no Wearing pads/ Depends: no Urge incontinence: no Stress incontinence: no Incontinence without Sensory Awareness: no Abdominal pain: noticed in the last couple of weeks a little discomfort lower left abdomen Flank pain: no Sexual complaints: no History of Present Illness Tests reviewed: reviewed UA and KUB. I have reviewed the previous health record information and history for this patient from . I have reviewed and verified the staff HPI to be accurate for this encounter. There have been no associated fever, chills, flank pain, or blood in the urine. Denies any urinary infections since last encounter. Review of Systems PHQ Score Initial Depression Screen Score: 0 SCORE ROS - Provider Constitutional: denies weight loss, denies hot flashes. Eyes: denies eye problems. Gastrointestinal: denies nausea, denies vomiting. Cardiovascular: denies chest pain or angina. Integumentary: no dryness Musculoskeletal: denies musculoskeletal symptoms. ENMT: denies otolaryngeal symptoms. Respiratory: no shortness of breath. Heme/Lymph: denies easy bleeding tendency, denies easy bruising tendency. Psychiatric: no confusion, no anxiety. Genitourinary: See HPI. Physical Exam Vitals & Measurements HR: 65(Peripheral) RR: 16 BP: 126/83 HT: 70 in HT: 178 cm WT: 116.2 kg WT: 255.64 lb BMI: 36.67 General Appearance: alert, no distress, well nourished, well developed male. Assessment/Plan 1. BPH with obstruction/lower urinary tract [...] 0.63 done 06/07/21, previous 0.56 done 08/21/19. Pt denies any infections. Pt states that he was adopted, does not know if he has a family history of prostate cancer. 2. Kidney stones (N20.0: Calculus of kidney) KUB 09/28/22 - small calcification within the lower pole of the Lt kidney, collection of numerous small calcifications within a cyst within superior pole of Rt kidney, small adjacent calcification, no ureteral stone KUB 09/21/23 - stable 1.8cm probable Rt renal stone, probable tiny left renal stone Pt states that he had a little bit of a twinge pain in his lower abdomen, feels it when he squats, may be a hernia, has not had any pain that shows he may be passing a stone. Discussed KUB results with pt, stable stone. Advised pt that next time we will get a CT done. Follow up in 1 yr w/CT scan. All questions/concerns were discussed. Pt to call the office if he encounters any issues prior. Pt acknowledges understanding. -Will order CT AP w/o Con. 3. Asymptomatic microscopic hematuria (R31.21: Asymptomatic microscopic hematuria) Chronic. UA today shows small blood. 4. Urethral stricture (N35.919: Unspecified urethral stricture, male, unspecified site) UD done 03/21/22. No issues at this time. 5. History of kidney stones (Z87.442: Personal history of urinary calculi) Has had stones for many years. Follow-up With When Contact Information JOSE WONG, FÉLIX Allen In 1 year [facility] [address], [place] [id number]- Additional Instructions: w/CT AP w/o Con Patient Education Dietary Guidelines to Help Prevent Kidney Stones I, Jessica Deluna , personally scribed for Dr. Lenz on 09/26/2023 13:12:59. . Documentation recorded by the Jessica baker, accurately reflects the services(s) I performed and decisions made by me. Problem List/Past Medical History Ongoing Apnea, sleep Arthritis Asymptomatic microscopic hematuria BPH with obstruction/lower urinary tract symptoms Headache, migraine History of kidney stones Kidney stone Kidney stones Urethral stricture Historical No qualifying data Procedure/Surgical History Transurethral resection of prostate (05/06/2022), Arthroplasty of knee (2021), Clavicle, Lithotripsy. Medications acyclovir, 200 mg, Oral, BID aspirin, 81 mg, Oral, Daily levothyroxine, Daily losartan 50 mg Tab, Oral, Daily methylphenidate multivitamin, Daily oxaprozin 600 mg Tab, Oral, Daily traZODONE 100 mg Tab, Oral Vitamin D3 Allergies No Known Medication Allergies Social History Tobacco (more content not included)... [facility] Comment on above: Result Comment: Elec tronically Signed By: Arun LENZ MD\.br\Date and Time Signed: 09/26/23 13:14 EST\.br\Electronically Co-Signed By: Jessica Deluna\.br\Date and Time Co-Signed: 09/26/23 13:13 EST RAD - MISCon 09-22-2023 RAD - MISC [id number] F [facility] Provider Letteron 09-09-2023 Provider Letter (Inserted Image. Priscilla ble to display) September 09, 2023 PAUL VALENTINO [address] [place] [id number] : 1960 Dear Paul , We have been trying to reach you with no success. You have an appointment with Dr. Arun Lenz on 09/16/23 which will need to be rescheduled since he will be out of the office that day. Please contact the office at the number listed below to get this appointment rescheduled at your earliest convenience. Thank you for your prompt attention to this matter. Sincerely, [facility] [address], [place] [address] [facility] XR KUB 1 VIEWon 09-29-2022 XR KUB [...] by: HUGH NAVARRETE Date: 2022-09-29 08:41 Normal [facility] US Venous, Unilat, Lower Ext Righton 08-31-2022 [...] by Cali Oh on 08/31/2022 1107 Normal [facility] [employer] CREATININEon 06-29-2022 Creatinine [Mass/Vol] 1.11 mg/dL Normal 0.70-1.30 [facility] Comment on above: Performed By: #### C BC #### [facility] [address] [address] [address] Sim Bryan EGFR-AF TANZANIAN >60 Normal >=60 [facility] Comment on above: Performed By: #### C BC #### [facility] [address] [address] [address] Sim Bryan EGFR-NON AF TANZANIAN >60 Normal >=60 [facility] Comment on above: Performed By: #### C BC #### [facility] [address] [address] [address] Sim Bryan MRI BRAIN WO W [...] by: HUGH NAVARRETE Date: 2022-06-29 21:03 Normal [facility] EXAM[facility]ATION: MRI CSP INE WO [...] by: HUGH NAVARRETE Date: 2022-06-29 21:11 Normal [facility] XR FOREIGN BODY EYEon 2021 XR FOREIGN BODY EYE EXAMINATION: XR FORE IGN BODY EYE HISTORY: Foreign body in eye COMPARISON: No relevant comparison available. FINDINGS: ORBITS: Negative for a metallic foreign body. OTHER: Negative. IMPRESSION: 1. No metallic foreign body within the orbits. Electronically authenticated by: HUGH NAVARRETE Date: 2022-06-29 09:55 Normal [facility] XR CSPINE MIN 4 VIEWSon 06-05 XR [...] HUGH NAVARRETE Date: 2022-06-23 07:11 Normal [facility] CBC AUTO DIFFon 04-29-2022 BASO # 0.0 103/ul Normal 0.0-0.1 [facility] Comment on above: Performed By: #### C BC #### [facility] [address] [address] [address] Sim Bryan Basophils/100 WBC (Bld) 0.4 % Normal 0.2-2.0 [facility] Comment on above: Performed By: #### C BC #### [facility] [address] [address] [address] Sim Bryan EO # 0.1 103/ul Normal 0.0-0.7 [facility] Comment on above: Performed By: #### C BC #### [facility] [address] [place] [address] Dr. Sim Bryan Eosinophils/100 WBC (Bld) 1.4 % Normal 0.9-7.0 [facility] Comment on above: Performed By: #### C BC #### [facility] [address] [place] [address] Dr. Sim Bryan Erythrocyte distribution width (RBC) [Ratio] 12.3 % Normal 11.0-15.0 [facility] Comment on above: Performed By: #### C BC #### [facility] [address] [place] [address] Dr. Sim Bryan Hematocrit (Bld) [Volume fraction] 45.8 % Normal 42.0-54.0 [facility] Comment on above: Performed By: #### C BC #### [facility] [address] [place] [address] Dr. Sim Bryan Hemoglobin (Bld) [Mass/Vol] 15.6 g/dL Normal 14.0-18.0 [facility] Comment on above: Performed By: #### C BC #### [facility] [address] [place] [address] Dr. Sim Bryan IG # 0.10 10e3/ul Critically high 0.00-0.03 [facility] Comment on above: Performed By: #### C BC #### [facility] [address] [place] [address] Dr. Sim Bryan IG % 1.2 % Critically high 0.0-0.5 [facility] Comment on above: Performed By: #### C BC #### [facility] [address] [place] [address] Dr. Sim Bryan LYMPH # 2.0 103/ul Normal 1.2-3.8 [facility] Comment on above: Performed By: #### C BC #### [facility] [address] [place] [address] Dr. Sim Bryan Lymphocytes/100 WBC (Bld) 23.7 % Normal 20.5-60.0 [facility] Comment on above: Performed By: #### C BC #### [facility] [address] [place] [address] Dr. Sim Bryan MANUAL DIFF REQ NO Normal [facility] Comment on above: Performed By: #### C BC #### [facility] [address] [place] [address] Dr. Sim Bryan MCH (RBC) [Entitic mass] 31.1 pg Normal 25.9-34.0 [facility] Comment on above: Performed By: #### C BC #### [facility] [address] [place] [address] Dr. Sim Bryan MCHC (RBC) [Mass/Vol] 34.1 g/dL Normal 29.9-35.2 [facility] Comment on above: Performed By: #### C BC #### [facility] [address] [place] [address] Dr. Sim Bryan MCV (RBC) [Entitic vol] 91.2 fL Normal 80.0-94.0 [facility] Comment on above: Performed By: #### C BC #### [facility] [address] [place] [address] Dr. Sim Bryan MONO # 0.8 103/ul Normal 0.3-0.8 [facility] Comment on above: Performed By: #### C BC #### [facility] [address] [place] [address] Dr. Sim Bryan Monocytes/100 WBC (Bld) 9.7 % Normal 1.7-12.0 [facility] Comment on above: Performed By: #### C BC #### [facility] [address] [place] [address] Dr. Sim Bryan NEUT # 5.4 103/ul Normal 1.4-6.5 [facility] Comment on above: Performed By: #### C BC #### [facility] [address] [place] [address] Dr. Sim Bryan Neutrophils/100 WBC (Bld) 63.6 % Normal 43.0-75.0 [facility] Comment on above: Performed By: #### C BC #### [facility] [address] [address] [address] Sim Bryan Platelet mean volume (Bld) [Entitic vol] 9.0 fL Critically low 9.5-13.5 [facility] Comment on above: Performed By: #### C BC #### [facility] [address] [address] [address] Sim Bryan PLT 215 103/ul Normal 150-450 [facility] Comment on above: Performed By: #### C BC #### [facility] [address] [address] [address] Sim Bryan RBC 5.02 106/ul Normal 4.70-6.10 [facility] Comment on above: Performed By: #### C BC #### [facility] [address] [place] [address] Dr. Sim Bryan WBC 8.6 103/ul Normal 4.0-11.0 [facility] Comment on above: Performed By: #### C BC #### [facility] [address] [place] [address] Dr. Sim Bryan [facility]06 SARS-CoV-2 (COVID-19) RNA ANNA+probe Ql (Unsp spec) Not detected Normal NOT DETECTED [facility] Comment on above: Result Comment: This test is not yet approved or cleared by the [place] FDA. When there are no FDA-approved or cleared tests available, and other criteria are met, FDA can make tests available under an emergency access mechanism called an Emergency Use Authorization (EUA). The EUA for this test is supported by the [employer] of Health and Human Service's (HHS's) declaration [...] consistent with SARS-CoV-2. Performed By: #### C VDTB #### [facility] [address] [place] [address] Dr. Sim Bryan PROF CHEM 8 (BAS METB)on Anion gap [Moles/Vol] 13.1 mmol/L Normal [facility] Comment on above: Performed By: #### GERA CRAWFORD #### [facility] [address] [place] [address] Dr. Sim Bryan Calcium [Mass/Vol] 8.8 mg/dL Normal 8.5-10.1 [facility] Comment on above: Performed By: #### RADHA CRAWFORDRO #### [facility] [address] [place] [address] Dr. Sim Bryan Chloride [Moles/Vol] 103 mmol/L Normal 98-107 [facility] Comment on above: Performed By: #### GERA CRAWFORD #### [facility] [address] [place] [address] Dr. Sim Bryan CO2 [Moles/Vol] 26.7 mmol/L Normal 21.0-32.0 [facility] Comment on above: Performed By: #### GERA CRAWFORD #### [facility] [address] [place] [address] Dr. Sim Bryan Creatinine [Mass/Vol] 1.08 mg/dL Normal 0.70-1.30 [facility] Comment on above: Performed By: #### GERA CRAWFORD #### [facility] [address] [place] [address] Dr. Sim Bryan EGFR-AF TANZANIAN >60 Normal >=60 [facility] Comment on above: Performed By: #### GERA CRAWFORD #### [facility] [address] [place] [address] Dr. Sim Bryan EGFR-NON AF TANZANIAN >60 Normal >=60 [facility] Comment on above: Performed By: #### GERA CRAWFORD #### [facility] [address] [address] [address] Sim Bryan Glucose [Mass/Vol] 94 mg/dL Normal 74-106 [facility] Comment on above: Performed By: #### RADHA CRAWFORDRO #### [facility] [address] [place] [address] Dr. Sim Bryan Potassium [Moles/Vol] 3.8 mmol/L Normal 3.5-5.1 [facility] Comment on above: Performed By: #### Jennifer VERA, UMICRO #### [facility] [address] [place] [address] Dr. Sim Bryan Sodium [Moles/Vol] 139 mmol/L Normal 136-145 [facility] Comment on above: Performed By: #### Jennifer VERA UMICRO #### [facility] [address] [place] [address] Dr. Sim Bryan Urea nitrogen [Mass/Vol] 14.0 mg/dL Normal 7.0-18.0 [facility] Comment on above: Performed By: #### Jennifer VERA UMICRO #### [facility] [address] [place] [address] Dr. Sim Bryan Urea nitrogen/Creatinine [Mass ratio] 13.0 mg/mg Normal [facility] Comment on above: Performed By: #### Jennifer VERA UMICRO #### [facility] [address] [place] [address] Dr. Sim Bryan PROTIMEon 04-29-2022 INR Coag (PPP) [Relative time] 0.94 {INR} Normal [facility] Comment on above: Performed By: #### Jennifer VERA, UMICRO #### [facility] [address] [place] [address] Dr. Sim Bryan INR GUIDELINES SEE BELOW Normal [facility] Comment on above: Result Comment: QUINTON RED INR: 2.0 - 3.0 CONDITIONS NOT LISTED BELOW 2.5 - 3.5 FOR PROSTHETIC HEART VALVE REPLACEMENT 2.5 - 3.5 RECURRENT THROMBOSIS Performed By: #### Jennifer VERA UMICRO #### [facility] [address] [place] [address] Dr. Sim Bryan PT Coag (PPP) [Time] 10.2 s Normal 9.0-11.6 [facility] Comment on above: Performed By: #### GERA CRAWFORD #### [facility] [address] [address] [address] Sim Bryan PTTon 04-29-2022 aPTT Coag (Bld) [Time] 27.2 s Normal 22.3-36.2 [facility] Comment on above: Performed By: #### GERA CRAWFORD #### [facility] [address] [address] [address] Sim Bryan XR shoulder LT min 2V*on XR shoulder LT min 2V* [facility] [place] [address] [place] [address] XRay Report Signed Patient: Alexandro Valentino MR#: [id number] 5 : 1960 Acct:[id number] Age/Sex: 61 / M ADM Date: 04/14/22 Loc: XDC Room: Type: [facility] Attending Dr: Amber GALINDO Copies to: JOSIE Hanley Ordering Provider: JOSIE Hanley Date of [...] Bhavya Eli M.D.04/14/2022 1:11 PM Dictation Location: [address] [place] [address] Transcribed By: SONYA 04/14/22 1311 Dictated By: Bhavya Eli MD 04/14/22 1309 Signed By: 04/14/22 1311 Normal [facility] CREATININEon 04-05-2022 Creatinine [Mass/Vol] 1.16 mg/dL Normal 0.70-1.30 [facility] Comment on above: Performed By: #### C MANUEL #### [facility] [address] [address] [address] Sim Bryan EGFR-AF TANZANIAN >60 Normal >=60 [facility] Comment on above: Performed By: #### C MANUEL #### [facility] [address] [address] [address] Sim Bryan EGFR-NON AF TANZANIAN >60 Normal >=60 [facility] Comment on above: Performed By: #### C MANUEL #### [facility] [address] [place] [address] [address] ABD/PELV W CONon [...] HUGH NAVARRETE Date: 2022-04-05 18:05 Normal [facility] CALCULI, URINARYon 2 2,8 Dihydroxyadenine Normal [facility] Comment on above: Performed By: #### C ALCULI #### [facility] [address] [place] [address] Dr. Sim Bryan Ammonium Acid Urate Normal [facility] Comment on above: Performed By: #### C ALCULI #### [facility] [address] [address] [address] Sim Bryan Bilirubin Ql (U) Normal [facility] Comment on above: Performed By: #### C ALCULI #### [facility] [address] [address] [address] Sim Bryan Ca Oxalate Dihydrate Normal [facility] Comment on above: Performed By: #### C ALCULI #### [facility] [address] [address] [address] Sim Bryan CaHPO4 (Brushite) Normal [facility] Comment on above: Performed By: #### C ALCULI #### [facility] [address] [address] [address] Sim Bryan Calcium Bilirubinate Normal [facility] Comment on above: Performed By: #### C ALCULI #### [facility] [address] [address] [address] Sim Bryan Calcium Carbonate Normal [facility] Comment on above: Performed By: #### C ALCULI #### [facility] [address] [address] [address] Sim Bryan Calcium Oxalate Monohydrate 100 % Normal [facility] Comment on above: Performed By: #### C ALCULI #### [facility] [address] [address] [address] Sim Bryan Calcium Palmitate Normal [facility] Comment on above: Performed By: #### C ALCULI #### [facility] [address] [address] [address] Sim Bryan Calcium Phosphate Normal [facility] Comment on above: Performed By: #### C ALCULI #### [facility] [address] [address] [address] Sim Bryan Calcium Stearate [facility] Comment on above: Performed By: #### C ALCULI #### [facility] [address] [place] [address] Dr. Sim Bryan Carbonate Apatite Normal [facility] Comment on above: Performed By: #### C ALCULI #### [facility] [address] [place] [address] Dr. Sim Bryan Cellular Material Normal [facility] Comment on above: Performed By: #### C ALCULI #### [facility] [address] [address] [address] Sim Bryan Cholesterol [facility] Comment on above: Performed By: #### C ALCULI #### [facility] [address] [place] [address] Dr. Sim Bryan Color (U) Brown Normal [facility] Comment on above: Performed By: #### C ALCULI #### [facility] [address] [address] [address] Sim Bryan Comment [facility] Comment on above: Performed By: #### C ALCULI #### [facility] [address] [place] [address] Dr. Sim Bryan Comment Comment [facility] Comment on above: Result Comment: Calc ulus received in liquid. Wet calculi must be dried before analysis, which delays reporting of results. Leaving calculi in liquid (such as water, saline, blood, urine) may lead to changes in composition. Performed By: #### C ALCULI #### [facility] [address] [address] [address] Sim Bryan Comment: Comment Normal [facility] Comment on above: Result Comment: Mathieu martínez questions regarding Calculi Analysis [facility] at: [phone]. Performed By: #### C ALCULI #### [facility] [address] [place] [address] Dr. Sim Bryan Composition Comment [facility] Comment on above: Result Comment: Perc entage (Represents the % composition) Performed By: #### C ALCULI #### [facility] [address] [place] [address] Dr. Sim Bryan Cystine Normal [facility] Comment on above: Performed By: #### C ALCULI #### [facility] [address] [place] [address] Dr. Sim Bryan Disclaimer: Comment Normal [facility] Comment on above: Result Comment: This test was developed and its performance characteristics determined by [facility]. It has not been cleared or approved by the Food and Drug Administration. Performed By: #### C ALCULI #### [facility] [address] [place] [address] Dr. Sim Bryan Dried Blood Normal [facility] Comment on above: Performed By: #### C ALCULI #### [facility] [address] [place] [address] Dr. Sim Bryan Drug or Metabolite Normal [facility] Comment on above: Performed By: #### C ALCULI #### [facility] [address] [place] [address] Dr. Sim Bryan Hydroxyapatite Normal [facility] Comment on above: Performed By: #### C ALCULI #### [facility] [address] [place] [address] Dr. Sim Bryan Mg NH4 PO4 (Struvite) Normal [facility] Comment on above: Performed By: #### C ALCULI #### [facility] [address] [place] [address] Dr. Sim Bryan MgHPO4 (Newberyite) Normal [facility] Comment on above: Performed By: #### C ALCULI #### [facility] [address] [address] [address] Sim Bryan Other component(s) Normal [facility] Comment on above: Performed By: #### C ALCULI #### [facility] [address] [address] [address] Sim Bryan PDF . Normal [facility] Comment on above: Performed By: #### C ALCULI #### [facility] [address] [address] [address] Sim Bryan Photo Comment [facility] Comment on above: Result Comment: Phot ograph will follow under a separate cover Performed By: #### C ALCULI #### [facility] [address] [address] [address] Sim Bryan Please note: Comment [facility] Comment on above: Result Comment: Calc chava report will follow via computer, mail or bottom worker delivery. Performed By: #### C ALCULI #### [facility] [address] [address] [address] Sim Bryan Size 4x4 [facility] Comment on above: Result Comment: Mult iple pieces received. Dimensions of the largest piece reported. Performed By: #### C ALCULI #### [facility] [address] [address] [address] Sim Bryan Sodium Acid Urate Normal [facility] Comment on above: Performed By: #### C ALCULI #### [facility] [address] [address] [address] Sim Bryan Source Comment [facility] Comment on above: Result Comment: Righ t Ureter Performed By: #### C ALCULI #### [facility] [address] [address] [address] Sim Bryan Triamterene [facility] Comment on above: Performed By: #### C ALCULI #### [facility] [address] [address] [address] Sim Bryan Uric Acid [facility] Comment on above: Performed By: #### C ALCULI #### [facility] [address] [place] [address] Dr. Sim Bryan Uric Acid Dihydrate Normal [facility] Comment on above: Performed By: #### C ALCULI #### [facility] [address] [place] [address] Dr. Sim Bryan Weight 30.0 mg Normal [facility] Comment on above: Performed By: #### C ALCULI #### [facility] [address] [place] [address] Dr. Sim Bryan Xanthine [facility] Comment on above: Performed By: #### C ALCULI #### [facility] [address] [place] [address] Dr. Sim Bryan CBC AUTO DIFFon 03-21-2022 BASO # 0.0 103/ul Normal 0.0-0.1 [facility] Comment on above: Performed By: #### C BC #### [facility] [address] [place] [address] Dr. Sim Bryan Basophils/100 WBC (Bld) 0.3 % Normal 0.2-2.0 [facility] Comment on above: Performed By: #### C BC #### [facility] [address] [place] [address] Dr. Sim Bryan EO # 0.1 103/ul Normal 0.0-0.7 [facility] Comment on above: Performed By: #### C BC #### [facility] [address] [place] [address] Dr. Sim Bryan Eosinophils/100 WBC (Bld) 1.4 % Normal 0.9-7.0 [facility] Comment on above: Performed By: #### C BC #### [facility] [address] [place] [address] Dr. Sim Bryan Erythrocyte distribution width (RBC) [Ratio] 12.5 % Normal 11.0-15.0 [facility] Comment on above: Performed By: #### C BC #### [facility] [address] [place] [address] Dr. Sim Bryan Hematocrit (Bld) [Volume fraction] 43.4 % Normal 42.0-54.0 [facility] Comment on above: Performed By: #### C BC #### [facility] [address] [place] [address] Dr. Sim Bryan Hemoglobin (Bld) [Mass/Vol] 14.5 g/dL Normal 14.0-18.0 [facility] Comment on above: Performed By: #### C BC #### [facility] [address] [place] [address] Dr. Sim Bryan IG # 0.10 10e3/ul Critically high 0.00-0.03 [facility] Comment on above: Performed By: #### C BC #### [facility] [address] [place] [address] Dr. Sim Bryan IG % 1.0 % Critically high 0.0-0.5 [facility] [facility] Comment on above: Performed By: #### C BC #### [facility] [address] [place] [address] Dr. Sim Bryan LYMPH # 1.9 103/ul Normal 1.2-3.8 [facility] Comment on above: Performed By: #### C BC #### [facility] [address] [place] [address] Dr. Sim Bryan Lymphocytes/100 WBC (Bld) 18.2 % Critically low 20.5-60.0 [facility] Comment on above: Performed By: #### C BC #### [facility] [address] [place] [address] Dr. Sim Bryan MANUAL DIFF REQ NO Normal [facility] Comment on above: Performed By: #### C BC #### [facility] [address] [place] [address] Dr. Sim Bryan MCH (RBC) [Entitic mass] 31.5 pg Normal 25.9-34.0 [facility] Comment on above: Performed By: #### C BC #### [facility] [address] [place] [address] Dr. Sim Bryan MCHC (RBC) [Mass/Vol] 33.4 g/dL Normal 29.9-35.2 [facility] Comment on above: Performed By: #### C BC #### [facility] [address] [place] [address] Dr. Sim Bryan MCV (RBC) [Entitic vol] 94.3 fL Critically high 80.0-94.0 [facility] Comment on above: Performed By: #### C BC #### [facility] [address] [place] [address] Dr. Sim Bryan MONO # 1.0 103/ul Critically high 0.3-0.8 [facility] Comment on above: Performed By: #### C BC #### [facility] [address] [place] [address] Dr. Sim Bryan Monocytes/100 WBC (Bld) 10.2 % Normal 1.7-12.0 [facility] Comment on above: Performed By: #### C BC #### [facility] [address] [place] [address] Dr. Sim Bryan NEUT # 7.1 103/ul Critically high 1.4-6.5 [facility] Comment on above: Performed By: #### C BC #### [facility] [address] [place] [address] Dr. Sim Bryan Neutrophils/100 WBC (Bld) 68.9 % Normal 43.0-75.0 [facility] Comment on above: Performed By: #### C BC #### [facility] [address] [place] [address] Dr. Sim Bryan Platelet mean volume (Bld) [Entitic vol] 9.3 fL Critically low 9.5-13.5 [facility] Comment on above: Performed By: #### C BC #### [facility] [address] [place] [address] Dr. Sim Bryan PLT 156 103/ul Normal 150-450 [facility] Comment on above: Performed By: #### C BC #### [facility] [address] [place] [address] Dr. Sim Bryan RBC 4.60 106/ul Critically low 4.70-6.10 [facility] Comment on above: Performed By: #### C BC #### [facility] [address] [place], [place] [address] Dr. Sim Bryan WBC 10.2 103/ul Normal 4.0-11.0 [facility] Comment on above: Performed By: #### C BC #### [facility] [address] [place], [place] [address] ABD/PELVIS WO CONon [...] CRISTIAN MACIAS Date: 2022-03-20 22:34 Normal [facility] CULTURE BLOODon 03-21-2022 Microscopic examination of blood, culture Culture Observations: NO GROWTH AT 5 DAYS. Normal [facility] Comment on above: Performed By: #### GERA CRAWFORD #### [facility] [address] [place], [place] [address] Dr. Sim Bryan Microscopic examination of blood, culture Culture Observations: NO GROWTH AT 5 DAYS. Normal [facility] Comment on above: Performed By: #### GERA CRAWFORD #### [facility] [address] [place], [place] [address] Dr. Sim Bryan Covid-19 PCR ([facility])on 03-05 SARS-CoV-2 (COVID-19) RNA ANNA+probe Ql (Unsp spec) Not detected Normal NOT DETECTED [facility] Comment on above: Result Comment: When diagnostic [...] for this test is supported by the [employer] Human Service's declaration that [...] longer be used). Performed By: #### C VDTB #### [facility] [address] [place] [address] Dr. Sim Bryan ER URINE PROFILEon 2 Bilirubin Ql (U) Negative Normal NEGATIVE [facility] Comment on above: Performed By: #### GERA CRAWFORD #### [facility] [address] [place] [address] Dr. Sim Bryan Clarity (U) CLEAR Normal CLEAR [facility] Comment on above: Performed By: #### RADHA CRAWFORDRO #### [facility] [address] [place] [address] Dr. Sim Bryan Color (U) LT. YELLOW Normal YELLOW [facility] Comment on above: Performed By: #### KATLIN CRAWFORDICRO #### [facility] [address] [place] [address] Dr. Sim Bryan ERUCRISTIND A micrscopic examina tion will be performed if indicated. Normal [facility] Comment on above: Performed By: #### Jennifer VERA UMICRO #### [facility] [address] [place] [address] Dr. Sim Bryan Glucose Ql (U) Negative Normal NEGATIVE [facility] Comment on above: Performed By: #### Jennifer VERA, UMICRO #### [facility] [address] [place] [address] Dr. Sim Bryan Hemoglobin Ql (U) SMALL Abnormal NEGATIVE [facility] Comment on above: Performed By: #### Jennifer VERA UMICRO #### [facility] [address] [place] [address] Dr. Sim Bryan Ketones Ql (U) Negative Normal NEGATIVE [facility] Comment on above: Performed By: #### Jennifer VERA UMICRO #### [facility] [address] [place] [address] Dr. Sim Bryan LEUKOCYTES Negative Normal NEGATIVE [facility] Comment on above: Performed By: #### Jennifer VERA UMICRO #### [facility] [address] [place] [address] Dr. Sim Bryan Nitrite Ql (U) Negative Normal NEGATIVE [facility] Comment on above: Performed By: #### Jennifer VERA UMICRO #### [facility] [address] [place] [address] Dr. Sim Bryan pH (U) 6.0 [pH] Normal 5-9 [facility] Comment on above: Performed By: #### Jennifer VERA UMICRO #### [facility] [address] [place] [address] Dr. Sim Bryan SPEC GRAVITY 1.010 Normal 1.005-<=1.02 5 [facility] Comment on above: Performed By: #### Jennifer VERA UMICRO #### [facility] [address] [place] [address] Dr. Sim Bryan UA PROTEIN Negative Normal NEGATIVE/ TRACE [facility] Comment on above: Performed By: #### Jennifer VERA UMICRO #### [facility] [address] [place] [address] Dr. Sim Bryan UR MICRO IND INDICATED Normal [facility] Comment on above: Performed By: #### Jennifer VERA UMICRO #### [facility] [address] [place] [address] Dr. Sim Bryan Urobilinogen Qn (U) 0.2 {Cornell'U}/dL Normal 0.2 - 1. 0 [facility] Comment on above: Performed By: #### E GERA VERA #### [facility] [address] [place] [place] [address] [address] Sim Bryan LACTATE/LACTIC ACIDon 2021 Lactate [Moles/Vol] 0.5 mmol/L Normal 0.4-1.9 [facility] Comment on above: Performed By: #### L ACT #### [facility] [address] [place] [address] [address] Sim Bryan PROF CHEM 8 (BAS METB)on Anion gap [Moles/Vol] 11.3 mmol/L Normal [facility] Comment on above: Performed By: #### B MP #### [facility] [address] [place] [address] [address] Sim Bryan Calcium [Mass/Vol] 8.1 mg/dL Critically low 8.5-10.1 [facility] Comment on above: Performed By: #### B MP #### [facility] [address] [place] [address] [address] Sim Bryan Chloride [Moles/Vol] 105 mmol/L Normal 98-107 [facility] Comment on above: Performed By: #### B MP #### [facility] [address] [place] [address] [address] Sim Bryan CO2 [Moles/Vol] 26.8 mmol/L Normal 21.0-32.0 [facility] Comment on above: Performed By: #### B MP #### [facility] [address] [place] [address] [address] Sim Bryan Creatinine [Mass/Vol] 1.57 mg/dL Critically high 0.70-1.30 [facility] Comment on above: Performed By: #### B MP #### [facility] [address] [place] [address] [address] Sim Bryan EGFR-AF TANZANIAN 55 mL/min/1.73m2 Critically low >=60 [facility] Comment on above: Performed By: #### B MP #### [facility] [address] [place] [address] [address] Sim Bryan EGFR-NON AF TANZANIAN 45 mL/min/1.73m2 Critically low >=60 [facility] Comment on above: Performed By: #### B MP #### [facility] [address] [place] [address] [address] Sim Bryan Glucose [Mass/Vol] 101 mg/dL Normal 74-106 [facility] [place] [facility] Comment on above: Performed By: #### B MP #### [facility] [address] [place] [address] [address] Sim Bryan Potassium [Moles/Vol] 4.1 mmol/L Normal 3.5-5.1 [facility] Comment on above: Performed By: #### B MP #### [facility] [address] [place] [address] [address] Sim Bryan Sodium [Moles/Vol] 139 mmol/L Normal 136-145 [facility] [place] [facility] Comment on above: Performed By: #### B MP #### [facility] [address] [place] [address] [address] Sim Bryan Urea nitrogen [Mass/Vol] 16.0 mg/dL Normal 7.0-18.0 [facility] Comment on above: Performed By: #### B MP #### [facility] [address] [place] [address] [address] Sim Bryan Urea nitrogen/Creatinine [Mass ratio] 10.2 mg/mg Normal [facility] Comment on above: Performed By: #### B MP #### [facility] [address] [place] [address] [address] Sim Bryan URINE MICROSCOPIC ONLYon BACTERIA NONE SEEN Normal NONE SEEN [facility] Comment on above: Performed By: #### GERA CRAWFORD #### [facility] [address] [place] [id number] Sim Bryan Bacteria identified Cx Nom (U) NOT INDICATED Normal [facility] Comment on above: Performed By: #### E RUR, UMICRO #### [facility] [address] [place] [address] Dr. Sim Bryan CAST NONE SEEN Normal NONE SEEN [facility] Comment on above: Performed By: #### Jennifer VERA UMICRO #### [facility] [address] [place] [address] Dr. Sim Bryan Crystals LM Nom (Urine sed) NONE SEEN Normal NONE SEEN [facility] Comment on above: Performed By: #### Jennifer VERA ICRO #### [facility] [address] [place] [address] Dr. Sim Bryan Epithelial cells LM Ql (Urine sed) RARE Normal NONE SEEN /RARE [facility] Comment on above: Performed By: #### Jennifer VERA ICRO #### [facility] [address] [place] [address] Dr. Sim Bryan MUCOUS NONE SEEN Normal NONE SEEN [facility] Comment on above: Performed By: #### RADHA CRAWFORDRO #### [facility] [address] [place] [address] Dr. Sim Bryan RBC 5-10 Abnormal 0-2 [facility] Comment on above: Performed By: #### Jennifer VERA MARLONRO #### [facility] [address] [place] [address] Dr. Sim Bryan WBC NONE SEEN Normal NONE SEEN [facility] Comment on above: Performed By: #### Jennifer VERA MARLONRO #### [facility] [address] [place] [address] Dr. Sim Bryan CBC AUTO DIFFon 03-20-2022 BASO # 0.1 103/ul Normal 0.0-0.1 [facility] Comment on above: Performed By: #### C BC #### [facility] [address] [place] [address] Dr. Sim Bryan Basophils/100 WBC (Bld) 0.4 % Normal 0.2-2.0 [facility] Comment on above: Performed By: #### C BC #### [facility] [address] [place] [address] Dr. Sim Bryan EO # 0.1 103/ul Normal 0.0-0.7 [facility] Comment on above: Performed By: #### C BC #### [facility] [address] [place] [address] Dr. Sim Bryan Eosinophils/100 WBC (Bld) 0.5 % Critically low 0.9-7.0 [facility] Comment on above: Performed By: #### C BC #### [facility] [address] [place] [address] Dr. Sim Bryan Erythrocyte distribution width (RBC) [Ratio] 12.3 % Normal 11.0-15.0 [facility] Comment on above: Performed By: #### C BC #### [facility] [address] [place] [address] Dr. Sim Bryan Hematocrit (Bld) [Volume fraction] 46.4 % Normal 42.0-54.0 [facility] Comment on above: Performed By: #### C BC #### [facility] [address] [place] [address] Dr. Sim Bryan Hemoglobin (Bld) [Mass/Vol] 15.8 g/dL Normal 14.0-18.0 [facility] Comment on above: Performed By: #### C BC #### [facility] [address] [place] [address] Dr. Sim Bryan IG # 0.11 10e3/ul Critically high 0.00-0.03 [facility] Comment on above: Performed By: #### C BC #### [facility] [address] [place] [address] Dr. Sim Bryan IG % 0.8 % Critically high 0.0-0.5 [facility] Comment on above: Performed By: #### C BC #### [facility] [address] [place] [address] Dr. Sim Bryan LYMPH # 1.4 103/ul Normal 1.2-3.8 [facility] Comment on above: Performed By: #### C BC #### [facility] [address] [place] [address] Dr. Sim Bryan Lymphocytes/100 WBC (Bld) 10.3 % Critically low 20.5-60.0 [facility] Comment on above: Performed By: #### C BC #### [facility] [address] [place] [address] Dr. Sim Bryan MANUAL DIFF REQ NO Normal [facility] Comment on above: Performed By: #### C BC #### [facility] [address] [place] [address] Dr. Sim Bryan MCH (RBC) [Entitic mass] 31.5 pg Normal 25.9-34.0 [facility] Comment on above: Performed By: #### C BC #### [facility] [address] [place] [address] Dr. Sim Bryan MCHC (RBC) [Mass/Vol] 34.1 g/dL Normal 29.9-35.2 [facility] Comment on above: Performed By: #### C BC #### [facility] [address] [place] [address] Dr. Sim Bryan MCV (RBC) [Entitic vol] 92.4 fL Normal 80.0-94.0 [facility] Comment on above: Performed By: #### C BC #### [facility] [address] [place] [address] Dr. Sim Bryan MONO # 1.2 103/ul Critically high 0.3-0.8 [facility] Comment on above: Performed By: #### C BC #### [facility] [address] [place] [address] Dr. Sim Bryan Monocytes/100 WBC (Bld) 8.8 % Normal 1.7-12.0 [facility] Comment on above: Performed By: #### C BC #### [facility] [address] [place] [address] Dr. Sim Bryan NEUT # 10.4 103/ul Critically high 1.4-6.5 [facility] Comment on above: Performed By: #### C BC #### [facility] [address] [place] [address] Dr. Sim Bryan Neutrophils/100 WBC (Bld) 79.2 % Critically high 43.0-75.0 [facility] Comment on above: Performed By: #### C BC #### [facility] [address] [place] [address] Dr. Sim Bryan Platelet mean volume (Bld) [Entitic vol] 9.4 fL Critically low 9.5-13.5 [facility] Comment on above: Performed By: #### C BC #### [facility] [address] [place] [address] [address] Sim Bryan PLT 198 103/ul Normal 150-450 [facility] Comment on above: Performed By: #### C BC #### [facility] [address] [place] [address] Dr. Sim Bryan RBC 5.02 106/ul Normal 4.70-6.10 [facility] Comment on above: Performed By: #### C BC #### [facility] [address] [place] [address] Dr. Sim Bryan WBC 13.1 103/ul Critically high 4.0-11.0 [facility] Comment on above: Performed By: #### C BC #### [facility] [address] [place] [address] Dr. Sim Bryan LACTATE/LACTIC ACIDon 2021 Lactate [Moles/Vol] 0.7 mmol/L Normal 0.4-1.9 [facility] Comment on above: Performed By: #### C BC #### [facility] [address] [place] [address] Dr. Sim Bryan PROF CHEM 8 (BAS METB)on Anion gap [Moles/Vol] 12.2 mmol/L Normal [facility] Comment on above: Performed By: #### C BC #### [facility] [address] [place] [address] Dr. Sim Bryan Calcium [Mass/Vol] 8.8 mg/dL Normal 8.5-10.1 [facility] [place] [facility] Comment on above: Performed By: #### C BC #### [facility] [address] [place] [address] Dr. Sim Bryan Chloride [Moles/Vol] 103 mmol/L Normal 98-107 [facility] Comment on above: Performed By: #### C BC #### [facility] [address] [place] [address] [address] Sim Bryan CO2 [Moles/Vol] 25.7 mmol/L Normal 21.0-32.0 [facility] Comment on above: Performed By: #### C BC #### [facility] [address] [place] [address] [address] Sim Bryan Creatinine [Mass/Vol] 1.58 mg/dL Critically high 0.70-1.30 [facility] Comment on above: Performed By: #### C BC #### [facility] [address] [place] [address] Dr. Sim Bryan EGFR-AF TANZANIAN 54 mL/min/1.73m2 Critically low >=60 [facility] Comment on above: Performed By: #### C BC #### [facility] [address] [place] [address] Dr. Sim Bryan EGFR-NON AF TANZANIAN 45 mL/min/1.73m2 Critically low >=60 [facility] Comment on above: Performed By: #### C BC #### [facility] [address] [place] [address] Dr. Sim Bryan Glucose [Mass/Vol] 110 mg/dL Critically high 74-106 [facility] Comment on above: Performed By: #### C BC #### [facility] [address] [place] [address] Dr. Sim Bryan Potassium [Moles/Vol] 3.9 mmol/L Normal 3.5-5.1 [facility] Comment on above: Performed By: #### C BC #### [facility] [address] [place] [address] Dr. Sim Bryan Sodium [Moles/Vol] 137 mmol/L Normal 136-145 [facility] [place] [facility] Comment on above: Performed By: #### C BC #### [facility] [address] [place] [address] Dr. Sim Bryan Urea nitrogen [Mass/Vol] 15.0 mg/dL Normal 7.0-18.0 [facility] Comment on above: Performed By: #### C BC #### [facility] [address] [place] [address] [id number] [address] Sim Bryan Urea nitrogen/Creatinine [Mass ratio] 9.5 mg/mg Normal [facility] Comment on above: Performed By: #### C BC #### [facility] [address] [place], [place] [address] Dr. Sim Bryan MRI LSPINE WO CONon [...] or foraminal stenosis Electronically authenticated by: LIYAH IPNEDA Date: 2021-11-16 21:45 Normal [facility] XR LSPINE MIN 4 VIEWSon 11-03 XR [...] by: HUGH NAVARRETE Date: 2021-11-13 14:[address] [facility] 08-06-2021 [facility] Telephone (OTOLCR) -------- PAUL VALENTINO ([id number]) 1960 M Date Time Provider Department 08/06/21 LOIS GALLAGHERH [facility] During your visit today, we recorded the [...] clearance. They have an ENT outside of [facility]. They will make an appointment with their [...] by PATY BRITO RN on 08/07/21 [facility] Negative [employer] Other Vital Signs Date Time Vital Sign Value Performing Clinician Facility 10-25-2023 14:46-0500 Blood Pressure Location Tomas ZAPATAL [facility] 10-25-2023 14:46-0500 Diastolic blood pressure 94 mm[Hg] Tomas ZAPATAL [facility] 10-25-2023 14:46-0500 Heart rate 76 /min Tomas ZAPATAL [facility] 10-25-2023 14:46-0500 Respiratory rate 16 /min Tomas ZAPATAL [facility] 10-25-2023 14:46-0500 Systolic blood pressure 130 mm[Hg] Tomas ZAPATAL [facility] 09-26-2023 12:03-0500 Blood Pressure Location Arun LENZ [facility] 09-26-2023 12:03-0500 Diastolic blood pressure 83 mm[Hg] Arun LENZ [facility] 09-26-2023 12:03-0500 Heart rate 65 /min Arun LENZ [facility] 09-26-2023 12:03-0500 Respiratory rate 16 /min Arun LEZN [facility] 09-26-2023 12:03-0500 Systolic blood pressure 126 mm[Hg] Arun LENZ [facility] 01-12-2023 11:15-0400 Diastolic blood pressure 77 mm[Hg] MD Gilda Cummins Work Phone: [facility] 01-12-2023 11:15-0400 Heart rate 74 /min MD Gilda Cummins Work Phone: [facility] 01-12-2023 11:15-0400 Respiratory rate 16 /min MD Gilda Cummins Work Phone: [facility] 01-12-2023 11:15-0400 SaO2% (BldA) [Mass fraction] 96 % MD Gilda Cummins Work Phone: [facility] 01-12-2023 11:15-0400 Systolic blood pressure 140 mm[Hg] MD Gilda Cummins Work Phone: [facility] 01-12-2023 10:04-0400 Inhaled oxygen flow rate 3 L/min MD Gilda Cummins Work Phone: [facility] 01-12-2023 09:31-0400 Body height 179.07 cm MD Gilda Cummins Work Phone: [facility] 01-12-2023 09:31-0400 Body weight 119.74 kg MD Gilda Cummins Work Phone: [facility] 12-29-2022 14:00-0400 Body height 180.34 cm Saravanan Torres Other [facility] [employer] Other 12-29-2022 14:00-0400 Diastolic blood pressure 78 mm[Hg] Saravanan Torres Other [employer] Other 12-29-2022 14:00-0400 Respiratory rate 18 /min Saravanan Torres Other [facility] [employer] Other 12-29-2022 14:00-0400 SaO2% (BldA) [Mass fraction] 95 % Saravanan Brian Other [employer] Other 12-29-2022 14:00-0400 Systolic blood pressure 136 mm[Hg] Saravanan Torres Other [employer] Other 12-22-2022 11:55-0400 Diastolic blood pressure 98 mm[Hg] MD Gilda Cummins Work Phone: [facility] 12-22-2022 11:55-0400 Heart rate 68 /min MD Gilda Cummins Work Phone: [facility] 12-22-2022 11:55-0400 Respiratory rate 18 /min MD Gilda Cummins Work Phone: [facility] 12-22-2022 11:55-0400 SaO2% (BldA) [Mass fraction] 97 % MD Gilda Cummins Work Phone: [facility] 12-22-2022 11:55-0400 Systolic blood pressure 145 mm[Hg] MD Gilda Cummins Work Phone: [facility] 12-22-2022 11:13-0400 Inhaled oxygen flow rate 3 L/min MD Gilda Cummins Work Phone: [facility] 12-22-2022 09:32-0400 Body height 180.34 cm MD Gilda Cummins Work Phone: [facility] 12-22-2022 09:32-0400 Body weight 117.93 kg MD Gilda Cummins Work Phone: [facility] 12-08-2022 14:45-0400 Body height 180.34 cm Saravanan Torres Other [employer] Other 12-08-2022 14:45-0400 Body mass index (BMI) [Ratio] 37.37 kg/m2 Saravanan Torres Other [employer] Other 12-08-2022 14:45-0400 Body weight 121.56 kg Saravanan Torres Other [employer] Other 12-08-2022 14:45-0400 Diastolic blood pressure 82 mm[Hg] Saravanan Torres Other [employer] Other 12-08-2022 14:45-0400 Respiratory rate 18 /min Saravanan Torres Other [employer] Other 12-08-2022 14:45-0400 Systolic blood pressure 144 mm[Hg] Saravanan Torres Other [employer] Other 12-01-2022 10:53-0400 Diastolic blood pressure 91 mm[Hg] MD Gilda Cummins Work Phone: [facility] 12-01-2022 10:53-0400 Heart rate 65 /min MD Gilda Cummins Work Phone: [facility] 12-01-2022 10:53-0400 Respiratory rate 16 /min MD Gilda Cummins Work Phone: [facility] 12-01-2022 10:53-0400 SaO2% (BldA) [Mass fraction] 96 % MD Gilda Cummins Work Phone: [facility] 12-01-2022 10:53-0400 Systolic blood pressure 145 mm[Hg] MD Gilda Cummins Work Phone: [facility] 12-01-2022 09:28-0400 Body height 180.34 cm MD Gilda Cummins Work Phone: [facility] 12-01-2022 09:28-0400 Body weight 121.92 kg MD Gilda Cummins Work Phone: [facility] 11-15-2022 12:30-0400 Body height 180.34 cm Saravanan Torres Other [employer] Other 11-15-2022 12:30-0400 Body mass index (BMI) [Ratio] 37.49 kg/m2 Saravanan Torres Other [employer] Other 11-15-2022 12:30-0400 Body weight 121.93 kg Saravanan Torres Other [employer] Other 11-15-2022 12:30-0400 Diastolic blood pressure 88 mm[Hg] Saravanan Torres Other [employer] Other 11-15-2022 12:30-0400 SaO2% (BldA) [Mass fraction] 97 % Saravanan Torres Other [employer] Other 11-15-2022 12:30-0400 Systolic blood pressure 142 mm[Hg] Saravanan Torres Other [employer] Other 10-18-2022 12:45-0500 Body height 180.34 cm Saravanan Torres Other [employer] Other 10-18-2022 12:45-0500 Diastolic blood pressure 82 mm[Hg] Saravanan Torres Other [employer] Other 10-18-2022 12:45-0500 Respiratory rate 18 /min Saravanan Torres Other [employer] Other 10-18-2022 12:45-0500 SaO2% (BldA) [Mass fraction] 93 % Saravanan Torres Other [employer] Other 02-13-2023 12:45-0500 Systolic blood pressure 164 mm[Hg] Saravanan Torres Other [employer] Other 10-08-2022 12:00-0500 Body height 180.34 cm Saravanan Torres Other [employer] Other 10-08-2022 12:00-0500 Body mass index (BMI) [Ratio] 37.51 kg/m2 Saravanan Torres Other [employer] Other 10-08-2022 12:00-0500 Body weight 122.02 kg Saravanan Torres Other [employer] Other 10-08-2022 12:00-0500 Diastolic blood pressure 88 mm[Hg] Saravanan Brian Other [employer] Other 10-08-2022 12:00-0500 SaO2% (BldA) [Mass fraction] 96 % Saravanan Torres Other [employer] Other 10-08-2022 12:00-0500 Systolic blood pressure 146 mm[Hg] Saravanan Torres Other [employer] Other 09-13-2022 10:47-0500 Blood Pressure Location Arun LENZ [facility] 09-13-2022 10:47-0500 Diastolic blood pressure 89 mm[Hg] Arun LENZ [facility] 09-13-2022 10:47-0500 Heart rate 78 /min Arun LENZ [facility] 09-13-2022 10:47-0500 Respiratory rate 16 /min Arun LENZ [facility] 09-13-2022 10:47-0500 Systolic blood pressure 137 mm[Hg] Arun LENZ [facility] 06-04-2022 08:50-0400 Blood Pressure Location Arun LENZ [facility] 06-04-2022 08:50-0400 Diastolic blood pressure 87 mm[Hg] Arun LENZ [facility] 06-04-2022 08:50-0400 Heart rate 69 /min Arun LENZ [facility] 06-04-2022 08:50-0400 Respiratory rate 16 /min Arun LENZ [facility] 06-04-2022 08:50-0400 Systolic blood pressure 137 mm[Hg] Arun LENZ [facility] 04-19-2022 09:38-0400 Blood Pressure Location Arun LENZ [facility] 04-19-2022 09:38-0400 Diastolic blood pressure 98 mm[Hg] Arun LENZ [facility] 04-19-2022 09:38-0400 Heart rate 87 /min Arun LENZ [facility] 04-19-2022 09:38-0400 Respiratory rate 16 /min [facility]ENZ [facility] 04-19-2022 09:38-0400 Systolic blood pressure 169 mm[Hg] Arun LENZ [facility] [place] 07-01-2021 18:15-0400 Body height 180.34 cm Radha Marquesmond Other [employer] Other 07-01-2021 18:15-0400 Body mass index (BMI) [Ratio] 34.86 kg/m2 Radha Marquesmond Other [employer] Other 07-01-2021 18:15-0400 Body temperature 97.8 [degF] Radha Mraquesmond Other [employer] Other 07-01-2021 18:15-0400 Body weight 113.4 kg Radha Marquesmond Other [employer] Other 07-01-2021 18:15-0400 Respiratory rate 18 /min Radha Callaway Other [employer] Other 07-01-2021 18:15-0400 SaO2% (BldA) [Mass fraction] 98 % Radha Marquesmond Other [employer] Other Encounters Encounter Date Encounter Type Care Provider Facility Start: 09-24-2024 ambulatory Arun Popei ty:[facility] Start: 10-25-2023 End: 10-26-2023 ambulatory Tomas AMEZQUITA Facility: [facility] Start: 10-25-2023 End: 10-25-2023 Patient encounter procedure Tomas AMEZQUITA [facility] [place] Start: 10-10-2023 ambulatory Arun LENZ Facility :[facility] Start: 10-06-2023 ambulatory Arun LENZ Facility :[facility] Start: 09-26-2023 End: 09-27-2023 ambulatory Arun LENZ Facility:[facility] Start: 09-26-2023 End: 09-26-2023 Patient encounter procedure Arun LENZ [facility] [place] Start: 09-16-2023 ambulatory Arun LENZ Facili ty:[facility] Start: 08-11-2023 End: 08-12-2023 ambulatory TRACEY CAM Not Available Start: 01-12-2023 (PROC) PROCEDURE Saravanan Macdonald [facility] Start: 01-12-2023 End: 01-12-2023 ambulatory Saravanan Marcus Brian Facility:[facility] Start: 01-12-2023 End: 01-12-2023 Admission to same day surgery center MD Gilda Cummins Work Phone: [facility] Work Phone: Start: 01-12-2023 End: 01-12-2023 ambulatory MD Gilda Cummins Work Phone: [facility] Work Phone: Start: 12-29-2022 End: 12-29-2022 ambulatory Saravanan Torres Other [facility] Other Start: 12-29-2022 Office outpatient vi sit 25 minutes Saravanan Torres [facility] Start: 12-22-2022 (PROC) PROCEDURE [facility] Start: 12-22-2022 End: 12-22-2022 ambulatory Gilda Cummins [facility] [employer] Other Start: 12-22-2022 End: 12-22-2022 Admission to same day surgery center MD Gilda Cummins Work Phone: [facility] Work Phone: Start: 12-08-2022 End: 12-08-2022 ambulatory Saravanan Torres Other [employer] Other Start: 12-08-2022 Office outpatient vi sit 15 minutes Saravanan Torres [facility] Start: 12-01-2022 (PROC) PROCEDURE Saravanan Torres [facility] Start: 12-01-2022 End: 12-01-2022 Admission to same day surgery center MD Gilda Cummins Work Phone: [facility] Work Phone: Start: 12-01-2022 End: 12-01-2022 ambulatory MD Gilda Cummins Work Phone: [facility] Work Phone: Start: 11-15-2022 End: 11-15-2022 ambulatory Saravanan Torres Other [employer] Other Start: 11-15-2022 Office outpatient vi sit 25 minutes Saravanan Torres [facility] Start: 10-18-2022 End: 10-18-2022 ambulatory Saravanan Torres Other [employer] Other Start: 10-18-2022 Office outpatient vi sit 15 minutes Saravanan Torres [facility] Start: 10-11-2022 End: 10-11-2022 ambulatory Saravanan Torres Other [employer] Other Start: 10-11-2022 Telephone encounter Saravanan Torres [facility] Start: 10-08-2022 End: 10-08-2022 ambulatory Saravanan Torres Other [employer] Other Start: 10-08-2022 Office consultation new/estab patient 60 min Saravanan Torres [facility] Start: 09-28-2022 End: 09-29-[address] GILDA CUMMINS Facility:[facility] Start: 09-13-2022 End: 09-13-2022 Patient encounter procedure Arun LENZ [facility] Start: 06-29-2022 End: 06-30-[address] GILDA CUMMINS Facility:[facility] Start: 06-22-2022 End: 06-23-[address] GILDA CUMMINS Facility:[facility] Start: 06-04-2022 End: 06-04-2022 Patient encounter procedure Arun LENZ [facility] Start: 05-06-2022 End: 05-07-[address] GILDA CUMMINS Facility:[facility] Start: 05-03-2022 Encounter for preprocedural laboratory examination DR ARUN LENZ [facility] Start: 04-29-2022 End: 04-30-[address] GILDA CUMMINS Facility:[facility] Start: 04-29-2022 End: 04-30-2022 Encounter for preprocedural laboratory examination DR GILDA CUMMINS Facility:[facility] Start: 04-19-2022 End: 04-19-2022 Patient encounter procedure Arun LENZ [facility] Start: 04-14-2022 End: 04-14-2022 ambulatory PHYSICIAN NO FAMILY Facility:[facility] Start: 04-14-2022 End: 04-14-2022 Departed Ref[employer] Amber Lentz Work Phone: [facility] Start: 04-05-2022 End: 04-06-[address] GILDA CUMMINS Facility:[facility] Start: 03-30-2022 End: 03-30-2022 Patient encounter procedure Arun LENZ [facility] Start: 03-29-2022 End: 07-25-[address] GILDA CUMMINS Facility:[facility] Start: 03-21-2022 End: 03-21-[address] GILDA CUMMINS Facility:[facility] Start: 11-16-2021 End: 11-17-[address] GILDA CUMMINS Facility:[facility] Start: 11-13-2021 End: 11-14-[address] GILDA CUMMINS Facility:[facility] Start: 07-01-2021 Office outpatient vi sit 15 minutes [facility] Procedures Date Procedure Procedure Detail Performing Clinician Start: 01-12-2023 Radiofrequency destruction of peripheral nerve MD Gilda Cummins Work Phone: Start: 12-22-2022 Local anesthetic lumbar facet joint nerve block MD Gilda Cummins Work Phone: Start: 12-01-2022 Therapeutic cervical epidural injection MD Gilda Cummins Work Phone: Start: 05-06-2022 Transurethral prostatectomy Arun ACUÑA Start: 04-14-2022 Plain X-ray of left shoulder [employer] Amber Lentz Work Phone: Start: 09-05-2021 Arthroplasty of knee Arun LENZ Start: 10-08-2013 Colonoscopy Tomas AMEZQUITA Bone structure of cl avicle (body structure) Arun LENZ Comment on above: 2018 SLAP repair and clavicle resection 2018 SLAP repair and clavicle resection Esophagogastroduodenoscopy M bailee AMEZQUITA Lithotripsy Arun LENZ Comment on above: Delfino Lenz 2014 and 2016 Delfino Lenz 201 4 and 2016 Repair of joint of right knee Tomas AMEZQUITA Transurethral cystoscopy Samuel blanca AMEZQUITA Plan of Treatment Date Care Activity Detail Author Start: 01-12-2023 [facility] Start: 12-22-2022 [facility] Start: 12-01-2022 [facility] Patient Education [facility] Work Phone: Patient referral [facility] Work Phone: Immunizations Immunization Date Immunization Notes Care Provider Fa kim NEGATED: Highlighted row has not occurred!10-25-2023 influenza virus vaccine, unspecified formulation Tomas AMEZQUITA [facility] [place] Payers Date Payer Category Payer Unknown [id number] 2023 Unknown [id number] 2022 Self-pay 2022 Worker's Compensation [id number] 1960 Unknown [id number] 2.16.84 0.1.801695.3.579.2.593 1961 Unknown [id number] 2.16.84 0.1.201292.3.579.2.593 1961 Unknown [id number] 2.16.84 0.1.401501.3.579.2.593 1961 Unknown [id number] 2.16.84 0.1.315382.3.579.2.593 1961 Unknown [id number] 2.16.84 0.1.637688.3.579.2.593 1961 Unknown [id number] 2.16.84 0.1.629713.3.579.2.593 1961 Unknown [id number] 2.16.84 0.1.303465.3.579.2.593 1961 Unknown [id number] 2.16.84 0.1.973062.3.579.2.593 1961 Unknown [id number] 2.16.84 0.1.716504.3.579.2.593 1961 Unknown [id number] 2.16.84 0.1.481702.3.579.2.593 1961 Unknown [id number] 2.16.84 0.1.727611.3.579.2.593 1961 Unknown [id number] 2.16.840 .1.719193.3.579.2.1259 1961 Unknown [id number] 2.16.840 .1.495787.3.579.2.1259 1961 Unknown [id number] 2.16.8 40.1.276811.3.579.2.727 1961 Unknown [id number] 2.16.8 40.1.811483.3.579.2.727 1961 Unknown [id number] 2.16.8 40.1.732955.3.579.2.727 1961 Unknown [id number] 2.16.8 40.1.412459.3.579.2.727 1959 Unknown [id number] 2.16. 840.1.603841.19 1959 Unknown [id number] Unknown [id number] 2.16.8 40.1.000503.3.579.2.531 Unknown [id number] 2.16.8 40.1.925323.3.579.2.531 Unknown [id number] 2.16.8 40.1.524168.3.579.2.531 Unknown [id number] 2.16.8 40.1.346300.3.579.2.531 Social History Date Type Detail Facility Unknown if ever smoked [facility] [employer] Other Sex Assigned At [employer] Other Tobacco smoking status No Smokin g Status Entered [facility] Start: 1960 Sex Assigned At Male F [facility] Start: 09-13-2022 End: 10-25-2023 Tobacco smoking status Ex-smoker (finding) [facility] Tobacco smoking status Never Gener al [facility] [place] Goals Date Patient Goal Desired Activity /State Functional Status Date Assessment Result Facility 10-25-2023 Functional Status N/A [facility] [place] 09-26-2023 Functional Status N/A [facility] 09-13-2022 Functional Status N/A [facility] 06-04-2022 Functional Status N/A [facility] 04-19-2022 N/A [facility] Clinical Notes 07-01-2021 to 10-25-2023 Note Date & Type Note Facility 10-25-2023 Note Chief Complaint consultation for colonoscopy HPI Staff 63 year old male presents on consultation from Dr. Cummins for screening colonoscopy. Denies abdominal or rectal pain. No rectal bleeding or change in bowel habits. Denies nausea or vomiting. No unexplained weight loss. Last colonoscopy completed 10/2013-normal. No known family history of colon cancer. History of Present Illness 63 yo male with h/o htn, hypothyroidism, migraines, cervical and lumbar disc disease, arthritis, LETY, depression, ADHD, referred for colorectal screening; denies change in bms or blood in stools; no abdominal complaints; denies asa or NSAID use, no SBE prophylaxis; no abdominal operations, last colonoscopy 2013, mild diverticulosis found; no fmhx of GI malignancy or IBD; no tobacco use. Review of Systems PHQ Score Initial Depression Screen Score: 0 SCORE ROS - Provider Constitutional: no fever, no sweats, no weight loss. Eyes: no glasses, no blurred vision, no visual loss. ENMT: no dentures, no hoarseness, no swallowing difficulties, no hearing loss, no ear infection(s), no nose bleeds. Cardiovascular: normal blood pressure, no chest pain, regular heartbeat, no heart murmur. Respiratory: no shortness of breath, no cough, no asthma, no wheezing. Gastrointestinal: no nausea, no vomiting, no diarrhea, no constipation, no blood in stool, no change in bowel habits, no abdominal pain, no hepatitis. Genitourinary: no kidney stones, no urine infection, no dysuria. Musculoskeletal: no pain, no weakness. Skin: no changing moles, no rash, no skin lumps. Neurologic: no seizures, no epilepsy, no headache. Psychiatric: no emotional or psychiatric problem. Heme/Lymph: no bleeding problems, no anemia, no blood clots, no transfusions. Allergy/Immunologic: no swollen lymph nodes/glands, no IV drug abuse. Other: Additional ROS info: Except as noted in the above Review of Systems and in the History of Present Illness, all other systems have been reviewed and are negative or noncontributory. Physical Exam Vitals & Measurements HR: 76(Peripheral) RR: 16 BP: 130/94 HT: 70 in HT: 178 cm WT: 130 kg WT: 286 lb BMI: 41.03 HEENT: normal conjunctiva, sclera clear, no scleral icterus, EOM intact, PERRLA, oral mucosa moist without lesions. Neck: trachea midline, no mass, symmetric, no thyromegaly or nodules, no adenopathy Respiratory: lungs CTA, respirations non labored. Cardiovascular: regular rate and rhythm, no murmur, no pedal edema or varicosities. Gastrointestinal: obese, soft, non distended, no tenderness, no masses, no palpable hernias, diastasis recti no, no hepatosplenomegaly; normal bs Lymphatic: no cervical adenopathy, no supraclavicular adenopathy. Musculoskeletal: normal gait, digits and nails without infection, nodes, cyanosis, clubbing. Skin: no rashes, no lesions, no ulcers, no subcutaneous nodules, induration. Psychiatric/Neuro: oriented to time, place, person, judgement normal, affect appropriate for age, insight intact, no focal deficits. Tests: review of old records completed , Discussed surgical options, risks, and possible complications with patient. Assessment/Plan 1. Screening for malignant neoplasm of colon (Z12.11: Encounter for screening for malignant neoplasm of colon) plan colonoscopy under anesthesia, informed consent obtained. 2. BMI 40.0-44.9, adult (Z68.41: Body mass index [BMI] 40.0-44.9, adult) recommend diet and exercise. Follow-up No qualifying data available Problem List/Past Medical History Ongoing ADHD Anemia Anxiety Arthritis Asymptomatic microscopic hematuria BMI 40.0-44.9, adult BPH with obstruction/lower urinary tract symptoms Cervical radiculopathy Cervical spondylosis Chronic pain DDD (degenerative disc disease), lumbar Depression Diverticulosis Headache, migraine History of kidney stones Hypertension Hypothyroidism Insomnia Kidney stone Morbid obesity LETY (obstructive sleep apnea) Screening for malignant neoplasm of colon Urethral stricture Varicose ulcer Varicose veins of lower limb Historical No qualifying data Procedure/Surgical History Transurethral resection of prostate (05/06/2022), Colonoscopy (10/08/2013), Arthroplasty of right knee, Clavicle, Cystoscopy, EGD - esophagogastroduodenoscopy, Lithotripsy. Medications Colace 100 mg Cap, 100 mg= 1 cap(s), Oral, Daily, PRN levothyroxine 100 mcg (0.1 mg) Tab, 100 mcg= 1 tab(s), Oral, Daily losartan 50 mg Tab, 50 mg= 1 tab(s), Oral, Daily multivitamin, 1 tab(s), Oral, Daily Strattera 40 mg Cap, 40 mg= 1 cap(s), Oral, qAM traZODONE 100 mg Tab, 100 mg= 1 tab(s), Oral, Once a day (at bedtime) Vitamin D3, 5000 unit(s), Oral, Daily Allergies No Known Allergies No Known Medication Allergies Social History Alcohol - Denies Alcohol Use, 10/25/2023 Substance Abuse - Denies Substance Abuse, 10/25/2023 Tobacco - Denies Tobacco Use, 10/25/2023 Former smoker, quit more than 30 days ago Tobacco Us (more content not included)... [facility] Comment on above: Result Comment: Elec tronically Signed By: BIA WONG, Tomas Ayon.debbie\Date and Time Signed: 10/25/23 15:17 EST 09-26-2023 Hospital Discharg e instructions Patient Education 09/26/2023 13:11:49 Dietary Guidelines to Help Prevent Kidney Stones Dietary Guidelines to Help Prevent Kidney Stones Kidney stones are deposits of minerals and salts that form inside your kidneys. Your risk of developing kidney stones may be greater depending on your diet, your lifestyle, the medicines you take, and whether you have certain medical conditions. Most people can lower their risks of developing kidney stones by following these dietary guidelines. Your dietitian may give you more specific instructions depending on your overall health and the type of kidney stones you tend to develop. What are tips for following this plan? Reading food labels Choose foods with no salt added or low-salt labels. Limit your salt (sodium) intake to less than 1,500 mg a day. Choose foods with calcium for each meal and snack. Try to eat about 300 mg of calcium at each meal. Foods that contain 200 500 mg of calcium a serving include: ?8 oz (237 mL) of milk, uqcosud-oirrbbshfupl-dqvks milk, and calcium-fortifiedfruit juice. Calcium-fortified means that calcium has been added to these drinks. ?8 oz (237 mL) of kefir, yogurt, and soy yogurt. ?4 oz (114 g) of tofu. ?1 oz (28 g) of cheese. ?1 cup (150 g) of dried figs. ?1 cup (91 g) of cooked broccoli. ?One 3 oz (85 g) can of sardines or mackerel. Most people need 1,000 1,500 mg of calcium a day. Talk to your dietitian about how much calcium is recommended for you. Shopping Buy plenty of fresh fruits and vegetables. Most people do not need to avoid fruits and vegetables, even if these foods contain nutrients that may contribute to kidney stones. When shopping for convenience foods, choose: ?Whole pieces of fruit. ?Pre-made salads with dressing on the side. ?Low-fat fruit and yogurt smoothies. Avoid buying frozen meals or prepared deli foods. These can be high in sodium. Look for foods with live cultures, such as yogurt and kefir. Choose high-fiber grains, such as whole-wheat breads, oat bran, and wheat cereals. Cooking Do not add salt to food when cooking. Place a salt shaker on the table and allow each person to add their own salt to taste. Use vegetable protein, such as beans, textured vegetable protein (TVP), or tofu, instead of meat in pasta, casseroles, and soups. Meal planning Eat less salt, if told by your dietitian. To do this: ?Avoid eating processed or pre-made food. ?Avoid eating fast food. Eat less animal protein, including cheese, meat, poultry, or fish, if told by your dietitian. To do this: ?Limit the number of times you have meat, poultry, fish, or cheese each week. Eat a diet free of meat at least 2 days a week. ?Eat only one serving each day of meat, poultry, fish, or seafood. ?When you prepare animal proteins, cut pieces into small portion sizes. For most meat and fish, one serving is about the size of the palm of your hand. Eat at least five servings of fresh fruits and vegetables each day. To do this: ?Keep fruits and vegetables on hand for snacks. ?Eat one piece of fruit or a handful of berries with breakfast. ?Have a salad and fruit at lunch. ?Have two kinds of vegetables at dinner. You may be told to limit foods that are high in a substance called oxalate. These include: ?Spinach (cooked), rhubarb, beets, sweet potatoes, and [place] chard. ?Peanuts. ?Potato chips, divehi fries, and baked potatoes with skin on. ?Nuts and nut products. ?Chocolate. If you regularly take a diuretic medicine, make sure to eat at least 1 or 2 servings of fruits or vegetables that are high in potassium each day. These include: ?Avocado. ?Banana. ?Kane, prune, carrot, or tomato juice. ?Baked potato. ?Cabbage. ?Beans and split peas. Lifestyle Drink enough fluid to keep your urine pale yellow. This is the most important thing you can do. Spread your fluid intake throughout the day. If you drink alcohol: ?Limit how much you have to: ?0 1 drink a day for women who are not . ?0 2 drinks a day for men. ?Know how much alcohol is in your drink. In the [place] one drink equals one 12 oz bottle of beer (355 mL), one 5 oz glass of wine (148 mL), or one 1 oz glass of hard liquor (44 mL). Lose weight if told by your health care provider. Work with your dietitian to find an eating plan and weight loss strategies that work best for you. General information Talk to your health care provider and dietitian about taking daily supplements. Depending on your health and the cause of your kidney stones, you may be told: ?Do not take high-dose supplements of vitamin C (1,000 mg a day or more). ?To take a calcium supplement. ?To take a daily probiotic supplement. ?To take other supplements such as magnesium, fish oil, or vitamin B6. Take ibhu-aig-xuxnwks and prescription medicines only as told by your health care provider. These include supplements. What foods should I limit? Limit your intake of the following foods, or eat them as told by your dietitian. Vegetables Spinach. Rhubarb. Beets. Canned vegetables. Pickles. Olives. Baked potatoes with skin. Grains Wheat bran. Baked goods. Salted crackers. Cereals high in sugar. Meats and other proteins Nuts. Nut butters. Large portions of meat, poultry, or fish. Salted, precooked, or cured meats, such as sausages, meat loaves, and hot dogs. Dairy Cheeses. Beverages Regular soft drinks. Regular vegetable juice. Seasonings and condiments Seasoning blends with salt. Salad dressings. Soy sauce. Ketchup. Barbecue sauce. Other foods Canned soups. Canned pasta sauce. Casseroles. Pizza. Lasagna. Frozen meals. Potato chips. [place] fries. The items listed above may not be a complete list of foods and beverages you should limit. Contact a dietitian for more information. What foods should I avoid? Talk to your dietitian about specific foods you should avoid based on the type of kidney stones you have and your overall health. Fruits Grapefruit. The item listed above may not be a complete list of foods and beverages you should avoid. Contact a dietitian for more information. Summary Kidney stones are deposits of minerals and salts that form inside your kidneys. You can lower your risk of kidney stones by making changes to your diet. The most important thing you can do is drink enough fluid. Drink enough fluid to keep your urine pale yellow. Talk to your dietitian about how much calcium you should have each day, and eat less salt and animal protein as told by your dietitian. This information is not intended to replace advice given to you by your health care provider. Make sure you discuss any questions you have with your health care provider. Document Revised: 12/02/2022 Document Reviewed: 12/02/2022 [employer] Patient Education 2022 [employer] Follow Up Care 09/13/2023 13:54:49 With:JOSE WONG, Arun Lott, URL Address: [facility] [address] , [place] [address]- When:Within 1 Year(s) Comments:w/CT AP w/o Con [facility] 01-12-2023 Procedure note [facility] 12-29-2022 Evaluation note Encounter Date Diagnosis Assessment [...] - M50.30) Stable, follow up after procedure. [facility] Other 04-05-2023 Evaluation note* Encounter Date Diagnosis [...] - M50.30) Stable, follow up after procedure. [facility] Encounter Date Diagnosis Assessment [...] - M50.30) Continue with current treatment plan. [facility] Other 02-13-2023 Evaluation note* Encounter Date Diagnosis [...] - M50.30) Continue with current treatment plan. [facility] Other 02-03-2023 Evaluation note* Encounter Date Diagnosis [...] negative findings were considered in medical decision-making. [facility] Other 01-09-2023 Hospital Discharge instructions Patient Education [...] urethra. Follow these instructions at home: Take dqvb-cci-hpompjh and prescription medicines only as told by [...] 08/22/2006 Document Revised: 07/17/2019 Document Reviewed: 09/26/2017 [employer] Patient Education 2020 [employer] Follow Up Care 06/04/2022 09:25:49 With:JOSE WONG, Arun Lott, URL Address: [facility] [address] , [place] [address]- [phone] When:Within 1 Year(s) Comments:emmie/ ZACH [facility] 09-30-2022 Hospital Discharge instructions Patient Education 06/04/2022 [...] urethra. Follow these instructions at home: Take grit-xvz-sfcgsda and prescription medicines only as told by [...] 08/22/2006 Document Revised: 07/17/2019 Document Reviewed: 09/26/2017 [employer] Patient Education 2020 [employer] Follow Up Care 05/07/2022 08:41:26 With:JOSE WONG, Arun Lott, URL Address: [address] [place], [place] [id number]- When: Unknown [facility] 08-15-2022 Hospital Discharge instructions Patient Education 04/19/2022 10:24:31 Kidney Stones, Bdkb-jm-Zxmh Kidney Stones Kidney stones are rock-like masses [...] Follow these instructions at home: Medicines Take rhfv-qyj-iebbobz and prescription medicines only as told by [...] 02/07/2009 Document Revised: 01/08/2020 Document Reviewed: 01/08/2020 [employer] Patient Education 2020 [employer] Follow Up Care 04/12/2022 17:34:24 With:JOSE WONG, Arun Lott, URL Address: [facility] [address] [place] [address]- [phone] When: Unknown [facility] 10-27-2021 Evaluation note* Encounter Date Diagnosis Assessment [...] Patient care instructions given in writting by [facility] Care At Home document. [facility] Other Evaluation + Plan note No data available for this section [facility]ments Appointment Date:09/13/2022 10:45:00 AM Scheduled Provider:Arun LENZ MD Location:[facility] Appointment Type:URO Office Visit [facility] evaluation + Plan note Future Appointments Appointment Date:09/16/2023 09:45:00 AM Scheduled Provider:Arun LENZ MD Location:[facility] Appointment Type:URO Office Visit [facility] evaluation + Plan note Future Appointments Appointment Date:09/24/2024 11:30:00 AM Scheduled Provider:Arun LENZ MD Location:[facility] Appointment Type:URO Office Visit [facility] evaluation noteNo assessment information available [facility] Work Phone: Evaluation noteNo InformationNort [facility] Other [facility] general Narrative - Reported* Type Description Date Medical History hypertension Medical History cold sores Surgical History b/l shoulder surgery Hospitalization History chest pain, cleared 2001 [facility] Other [facility] general Narrative - Reported* Type Description Date Medical History hypertension Medical History cold sores Medical History anxiety Surgical History b/l shoulder surgery Surgical History knee replacement Surgical History TURP Surgical History shoulder surgery Hospitalization History chest pain, cleared 2001 [facility] Other Hospital Discharge instructions No data available for this section [facility] No data available for this section [facility] Summary Purpose Family History No Family [...] Member Role Status Dates 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 , 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 FAMILY Primary [...] section and content) DATE CREATED AUTHOR 04/14/2022 [facility] DATE CREATED AUTHOR AUTHOR'S ORGANIZ ATION 08/31/2022 [facility] DATE CREATED AUTHOR AUTHOR'S ORGANIZ ATION 09/30/2022 [facility] DATE CREATED AUTHOR AUTHOR'S ORGANIZ ATION 01/13/2023 [facility] DATE CREATED AUTHOR AUTHOR'S ORGANIZ ATION 08/16/2023 [facility] DATE CREATED AUTHOR AUTHOR'S ORGANIZ ATION 11/01/2023 [facility] Goals (unrecognized section and content) Goals [...] BE BASED ON THE PRIMARY CLINICAL RECORDS. [facility] [employer] [facility]. provides no warranty or guarantee of the accuracy or completeness of information in this document.
[2023-11-09 07:50] VITALS: BMI 39.3
[2023-11-09] MEDS: LACTATED RINGER'S SOLUTION 1,000 ML 50 ML IV (08:00)
[2023-11-09 09:40] VITALS: BP 88/54; PULSE 69; RESP 18; TEMP 36.2; O2SAT 92
[2023-11-09 09:55] VITALS: BP 106/53; PULSE 68; RESP 16; O2SAT 96
== END 2023-11-09 10:10 | disposition home or self-care (01) ==
PROVIDERS: PCP Family Medicine; Visit Provider Surgery
PROC: (CPT 00812; principal; 2023-11-09 08:30)
DX: Z12.11 Encounter for screening for malignant neoplasm of colon (principal); M19.90 Unspecified osteoarthritis, unspecified site; F41.9 Anxiety disorder, unspecified; N40.1 Benign prostatic hyperplasia with lower urinary tract symptoms; M47.22 Other spondylosis with radiculopathy, cervical region; M51.36 Other intervertebral disc degeneration, lumbar region; F32.A Depression, unspecified; I10 Essential (primary) hypertension; E03.9 Hypothyroidism, unspecified; G47.33 Obstructive sleep apnea (adult) (pediatric); Z87.891 Personal history of nicotine dependence; Z68.41 Body mass index [BMI] 40.0-44.9, adult; E66.01 Morbid (severe) obesity due to excess calories; K57.30 Diverticulosis of large intestine without perforation or abscess without bleeding
CPT/HCPCS: 00812; 45378; J1094; J2704